=== PATIENT | female | born 1950 | race Caucasian/White ===

== ENCOUNTER 2017-01-19 10:30 | Outpatient (RCR) | payer OTHER, SELFPAY ==
--- NOTE | 2017-01-19 16:03 | HP.PTEVAL_ITS ---
Patient's Visit Information JIE FINNEGAN is a 66 year old F referred to Physical Therapy by Horacio Chand with a diagnosis of OA. Date of Evaluation: 01/19/17 Physical Therapist: Saul Black, PT, - Visit Plan Frequency: 2-3x /Week Duration: 3 Weeks Plan: R hip stretching and strengthening, DTR, foam roller, US, and HEP - Subjective Subjective: Pt reports she injured her R hip while working out here six weeks ago. Pt reports she was performing seated hip abd when she noticed the pain. Pt reports she has withheld performing that exercise for several weeks, but the pain has not decreased. Pt notes she did have Xrays taken of her R hip which revealed that OA is not the source of her pain. No T or N in R LE. Pt notes she has sleep diff secondary to pain, krystal if she sleeps on that side. Pt reports her pain is worse directly over the greater trochanter of the R hip. Walking and sleeping increase pt's pain the worst. Rest tends to ease her pain. - Pain R hip Pain Intensity (Out of 10): 5 Pain Intensity Range: 7 - Objective Neuro: B LE sensation is WNL to light touch. B pat tendon reflex= 2/3. ROM: B hips are grossly WNL. MMT: R hip flexion and knee flexion= 4/5. All other B LE 5/5 throughout. Palpation: Pt is very tender along the greater trochanteric bursa and TFL/IT band regions. Flexibility: Pt has a positive opers sign - Goals Goal 1:: Decrease R hip pain x 50% to aid with sleep Goal Time Frame: 4-6 Weeks Goal 2:: Increase R hip strength x 1 grade to aid with IADL's Goal Time Frame: 4-6 Weeks Goal 3:: Increase R hip flexibility x 1 grade to aid with decreasing pain Goal Time Frame: 4-6 Weeks Goal 4:: I with HEP Goal Time Frame: 4-6 Weeks - Rehabilitation Potential Physical Therapy Diagnosis: R hip pain, weakness, and limited flexibility at this time ssecondary to R greater trochanteric bursitis Rehabilitation Potential: Good - Anticipated Interventions Patient/Client Instruction: Educate patient on: Condition, Plan of Care For the Purpose of:: To improve self management Therapeutic Exercise to Include: Strength training, Endurance training, Body mechanics, Flexibilty training, Passive ROM, Active ROM, Dynamic Lumbar Stabilization For the Purpose of:: To decrease pain, To increase ROM, To improve muscle performance and motor function Ultrasound (thermal/non thermal): Yes For the Purpose of:: To decrease pain Thank you for the opportunity to evaluate your patient. For Medicare and Medicare HMO plans, please review the plan of care and approve it. It will need to be FAXED BACK to us at [phone] for Medicare purposes. Please let me know if there are questions or concerns regarding this plan of care. Physician Signature: Date:
--- NOTE | 2017-04-22 17:18 | HP.PT.NRP ---
HP - Discharge Summary (1) - Patient Information JIE FINNEGAN was seen in my office for initial evaluation on 01/19/17. The following Plan of Care was established for this patient: Initial Frequency: 2-3x /Week Initial Duration: 3 Weeks - Anticipated Interventions Patient/Client Instruction: Educate patient on: Condition, Plan of Care For the Purpose of:: To improve self management Therapeutic Exercise to Include: Strength training, Endurance training, Body mechanics, Flexibilty training, Passive ROM, Active ROM, Dynamic Lumbar Stabilization For the Purpose of:: To decrease pain, To increase ROM, To improve muscle performance and motor function Ultrasound (thermal/non thermal): Yes For the Purpose of:: To decrease pain This patient was last seen in our office . Pertinent comments regarding their Physical therapy will appear below: Pt was treated for R hip pain for 11 PT visits through the date of 02/12/17. Pt has not returned through todays date, and is therefore discontinued at this time. At this point I will be discontinuing this patient from physical therapy. I would be happy to see this patient again in the future if found appropriate by the physician. Thank you! Saul Black, PT,
== END 2017-02-12 19:00 | disposition home or self-care (01) ==
LOC: PT 13:22
PROVIDERS: Family Provider Family Medicine; PCP Family Medicine; Visit Provider Family Medicine
DX: M19.90 Unspecified osteoarthritis, unspecified site (principal)
CPT/HCPCS: 97110; 97161

== ENCOUNTER 2017-04-16 11:00 | Outpatient (RCR) | payer OTHER, SELFPAY ==
--- NOTE | 2017-04-05 14:16 | HP.PTEVAL_ITS ---
Patient's Visit Information JIE FINNEGAN is a 66 year old F referred to Physical Therapy by DO KARINA Noe with a diagnosis of Right Glut Tendonitis. Date of Evaluation: 04/05/17 Physical Therapist: Angie Mendenhall - Visit Plan Frequency: 2x /Week Duration: 3 Weeks Plan: Focus on glut strength - Subjective Subjective: Patient reports that she has had hip pain since November- she was performing the hip abduction machine and felt a pop in her hip and has had pain since. She has seen her PCP as well as ortho. She had PT prior for her back and hamstring which is better but the hip pain has not changed. Pain is located on the lateral aspect of the hip and radiates to the SI joint. Agg: walking, standing and laying on it Worst: 6/10 Best: 0/10 Eases: sitting. Describes pain as dull and achy. No N/T in toes or LE. No change or loss of dorian/bladder. Did have injection which helped for about 1 week but then it went back to being the same. MD wants her to do specific glut therapy for HEP and then possible MRI. Was very active but is now less secondary to pain. Has had x-rays which showed mild OA. PMHx: underactive thyroid, migraines Meds: see list - Objective Posture: FH, RS. Gait: no deviation noted. HR/TR: able. SLS: increased pelvic translation to the right when standing on right- increased pain. Stair: asc/desc 8 recip with 1 HR and poor control. ROM: WFL pain with ER of the hip. Strength:Ankle: 5/5, Knee: 5/5, Hip: 4/5 throughout pain with IR/ER. FABBER: positive, FADDIR: positive, Clams: increased pain. Palpation: tender from greater troch to the SI joint via gluts - Goals Goal 1:: Patient will be I with HEP and progression Goal Time Frame: 4-6 Weeks Goal 2:: Patient will report 0/10 pain for 1 week Goal Time Frame: 4-6 Weeks Goal 3:: Patient will demo 5/5 strength in LE Goal Time Frame: 4-6 Weeks Goal 4:: Patient will maintain proper posture t/o tx session to demo increased core s/s Goal Time Frame: 4-6 Weeks - Rehabilitation Potential Physical Therapy Diagnosis: Patient presents with hypmobility- she has decreased strength and muscular endurance leading to poor posture and increased pain Rehabilitation Potential: Fair - Anticipated Interventions Patient/Client Instruction: Educate patient on: Benefits of Fitness Program For the Purpose of:: To increase tolerance to activity/condition/position Therapeutic Exercise to Include: Strength training, Endurance training, Agility training, Body mechanics, Postural training, Flexibilty training, Gait and locomotor training, Passive ROM, Active ROM, Dynamic Lumbar Stabilization For the Purpose of:: To improve muscle performance and motor function TENS: Yes Cryotherapy (ice pack, ice massage): Yes Thermo therapy (hot pack): Yes Ultrasound (thermal/non thermal): Yes Thank you for the opportunity to evaluate your patient. For Medicare and Medicare HMO plans, please review the plan of care and approve it. It will need to be FAXED BACK to us at [phone] for Medicare purposes. Please let me know if there are questions or concerns regarding this plan of care. Physician Signature: Date:
--- NOTE | 2017-06-16 15:52 | HP.PTDCSUM ---
HP - PT D/C Summary It has been my pleasure to treat JIE FINNEGAN under orders from Robert Zuñiga DO, DR.MTODD for the diagnosis of Right Glut Tendonitis for a total of 6 visit(s). Discharge Date: Please see the following information for a summary of their discharge status. - Subjective Subjective: Patient reports its not as bad today- 2-3/10. Sometimes she feels its better but sometimes its not as good. But overall better. - Objective Objective/Function: Posture: improving. Gait: no deviation. ROM: WFL. Strength: Ankle: 5/5, Knee: 5/5, Hip: 4+/5 Core: fair - Goals Goal 1:: Patient will be I with HEP and progression Goal Progress: Progressing Goal 2:: Patient will report 0/10 pain for 1 week Goal Progress: Progressing Goal 3:: Patient will demo 5/5 strength in LE Goal Progress: Progressing Goal 4:: Patient will maintain proper posture t/o tx session to demo increased core s/s Goal Progress: Progressing - Plan Plan: Cont with Poc - D/C Information If there are questions or concerns regarding this patient's physical therapy, please feel free to call me at [phone]. Thank you for the referral of this patient. Sincerely, Angie Mendenhall
== END 2017-04-16 19:00 | disposition home or self-care (01) ==
LOC: PT 11:00
PROVIDERS: Family Provider Family Medicine; PCP Family Medicine; Visit Provider Orthopaedic Surgery
DX: M76.01 Gluteal tendinitis, right hip (principal)
CPT/HCPCS: 97110; 97161; 97530

== ENCOUNTER → 2017-05-12 07:15 | Outpatient (CLI) | payer OTHER, SELFPAY ==
--- NOTE | 2017-05-12 07:16 | MRI_ITS ---
STUDY: MRI RIGHT HIP REASON FOR EXAM: Right hip pain since November. TECHNIQUE: Standardized fat and water weighted pulse sequences were obtained in all 3 orthogonal planes. COMPARISON: Radiographs 12/24/2016. FINDINGS: Normal hip joint without articular joint space narrowing. Normal acetabulum. There is a suspected small tear of the anterior aspect of the right superior labrum (inversion recovery coronal image 18). Normal femoral head. Normal femoral neck and intratrochanteric region. There is mild peritendinitis of the right gluteus minimus tendon (inversion recovery coronal image 15) without discrete tendon tear. Normal gluteus medius and iliopsoas tendons and distal insertions. There is no trochanteric, iliopsoas or iliopectineal bursitis. Normal superior and inferior pubic rami. Normal pubic symphysis. Normal ischial tuberosity. Normal origin of the hamstring tendons. Normal visualized iliac wing, sacroiliac joint, and sacral ala. Normal visualized soft tissue structures of the pelvis. MRI/Lower Ext Joint Only (Routine) IMPRESSION: Mild peritendinitis of the right gluteus minimus tendon without demonstrated gluteal tendon tear. Suspected small tear of the anterior aspect of the right superior labrum. Electronically Signed: Earnest Muñoz MD at 8:55 EST Tel , Service support ,
== END ==
PROVIDERS: Family Provider Family Medicine; PCP Family Medicine; Visit Provider Orthopaedic Surgery
DX: M76.01 Gluteal tendinitis, right hip (principal)
CPT/HCPCS: 73721

== ENCOUNTER → 2017-05-26 14:03 | Outpatient (CLI) | payer OTHER, SELFPAY ==
[2017-05-26 15:53] LABS: Absolute Lymphocyte Count 1.58 X10^3/ul (0.83-4.51); Absolute Neutrophil Count 3.2 X10^3/uL (2.0-7.7); Basophil# 0.02 X10^3/uL; Basophil% 0.4 % (0-1); Eosinophil# 0.09 X10^3/uL; Eosinophils% 1.7 % (0-5); Hematocrit 42.4 % (37-47); Hemoglobin 13.9 g/dl (12.0-15.0); Lymphocyte # 1.58 X10^3/ul (4.0); Lymphocyte % 29.9 % (19-41); Mean Corp Hgb Conc 32.8 g/gl (32-36); Mean Corpuscular Hgb 30.1 pg (27.0-32.0); Mean Corpuscular Volume 91.8 fL (81-99); Mean Platelet Vol. 10.8 fl (6.2-12.0); Monocyte# 0.39 X10^3/uL; Monocyte% 7.4 % (0-10); Neutrophil % 60.4 % (47-70); Platelet Count 275 K/mm3 (150-450); RBC Distribution Width SD 43.4 fl (35.1-43.9); Red Blood Count 4.62 M/mm3 (4.2-5.4); White Blood Count 5.3 K/mm3 (4.4-11.0)
[2017-05-26 15:57] LABS: POSITIVE COUNT NO; POSITIVE DIFFERENTIAL NO; POSITIVE MORPHOLOGY NO
[2017-05-26 16:23] LABS: Anion Gap 8 (5-15); BUN 19 mg/dL (7-18); Calcium,Total 8.8 mg/dL (8.5-10.1); Chloride 104 mmol/L (98-107); EST Glomerular Filtration Rate 67 mL/min (>60); Est Glom Filt Rate - Afr Amer 81 mL/min (>60); Free T3 2.3 pg/mL (2.18-3.98); Glucose 90 mg/dL (74-106); Sodium Level 141 mmol/L (136-145); T4 Total, Thyroxin 10.6 ug/dL (4.8-13.9)
== END ==
PROVIDERS: Family Provider Family Medicine; PCP Family Medicine; Visit Provider Family Medicine
DX: Z00.00 Encounter for general adult medical examination without abnormal findings (principal); E03.9 Hypothyroidism, unspecified
CPT/HCPCS: 36415; 80048; 84436; 84443; 84481; 85025

== ENCOUNTER 2017-06-03 09:18 | Day surgery (SDC) | payer OTHER, SELFPAY ==
[2017-06-03 09:36] VITALS: BP 124/84; PULSE 88; RESP 16; TEMP 36.7; O2SAT 97; BMI 25.4
--- NOTE | 2017-06-03 10:39 | PCM.DC.ORTHO ---
Discharge Activity: Return to Normal Activity, May not drive while taking narcotic pain medications., May Shower, Use Crutches, - - Crutches as needed. May shower in (days): 2 May resume sexual activity in: 6 weeks Ice area for (Minutes): 20 Weight Bearing Status: Weight bearing as tolerated Call your doctor if your incision/area has: Continuous Slow Oozing, Sudden Increased Bleeding, Increased Pain/ Swelling, Increased Redness, Foul Smelling Discharge, Swelling at the incision site Call your doctor if you observe: Fever of 101 or Higher, Coldness, Increased Pain, Numbness or Tingling, Change in Color, Inability to urinate, Inability to have a bowel movement, Using more than one pad per hour, Shortness of breath, Dizziness, Fainting spells, Swelling in the ankles, Chest pain, Prolonged hiccoughing, Increased palpitations (irregular heartbeat), Calf discomfort, Uncontrolled pain Suture Line Care: Avoid Pulling/Pushing, Avoid Pinching/Bending Change Dressing in (Days):: 2 Remove Dressing in (days):: 2 Cleanse incision/area with: Soap & Water Additional Dressing/Incision Instructions:: Replace dressing as needed. May use simple Band-Aids as long as there is no drainage. May shower in 2 days but do not submerge wound. Allergies/Adverse Reactions: Allergies No Known Allergies Allergy (Verified 05/31/17 09:16) Medications to take at Discharge cholecalciferol (vitamin D3) 2,000 unit capsule 2,000 unit PO ONCE 03/10/17 gjeewla-becgquowrj-YRR-caffeine 30 mg-50 mg-325 mg-40 mg capsule 1 cap PO Q6H PRN 03/10/17 fexofenadine 180 mg tablet 180 mg PO Q24H PRN 03/10/17 hydroxychloroquine 200 mg tablet 200 mg PO QDAY 03/10/17 levothyroxine 125 mcg tablet 125 mcg PO DAILY 03/10/17 naproxen 500 mg tablet 500 mg PO Q12H 03/10/17 onabotulinumtoxinA 100 unit solution for injection 200 unit INTRAV X1 03/10/17 rizatriptan 10 mg tablet 10 mg PO ONCE PRN 03/10/17 Aspirin/Caffeine [Anacin 400-32 mg Tablet] 1 each PO PRN PRN 05/31/17 Docusate Sodium [Colace] 100 mg PO BID PRN PRN #10 cap 06/03/17 Hydrocodone Bitart/Apap 5-325 [[place] 5/325] 1 - 2 tablet PO Q6H PRN PRN #60 tablet 06/03/17 ProMETHAzine [Phenergan] 25 mg PO Q4H PRN PRN #10 tab 06/03/17 The following prescriptions were given: ProMETHAzine [Phenergan] 25 mg PO Q4H PRN PRN #10 tab PRN Reason: Nausea Hydrocodone Bitart/Apap 5-325 [[place] 5/325] 1 - 2 tablet PO Q6H PRN PRN #60 tablet PRN Reason: Pain Docusate Sodium [Colace] 100 mg PO BID PRN PRN #10 cap PRN Reason: Constipation Primary Care Physician: Horacio Chand MD [Primary Care Provider] - Please Follow Up With: Robert Zuñiga DO When: call [facility] for appt for 2 weeks Proposed Discharge Date: 06/03/17
[2017-06-03] MEDS: Cefazolin 2 GM in 0.9% Normal Saline 100 ML IV (10:46)
[2017-06-03] MEDS: Bupivacaine Mpf 0.5% 30 ML VIAL (11:30)
--- NOTE | 2017-06-03 11:43 | OP.PN_ITS ---
Immediate Post-Op Note Date of Procedure: 06/03/17 Primary Surgeon/Physician: Robert Zuñiga DO cognos administrator: None Pre-Operative Diagnosis: Hip gluteal tendinopathy and trochanteric bursitis. Post-Operative Diagnosis: Same as above Surgery/Procedure Performed:: Right hip endoscopic trochanteric bursectomy IT band lengthening and gluteal debridement. Description of Surgical Findings:: See dictation Estimated Blood Loss: 10 Specimen's removed: None Type of Anesthesia:: General ASA Class: ASA1 Normal Healthy Patient - Admit VTE Documentation VTE Present on Admission: No VTE Mechan Device Prophylaxis: SCD's, Knee High BOLIVAR Hose VTE Pharm Prophylaxis ordered?: No Reason prophylaxis not ordered:: Treatment Not Indicated
--- NOTE | 2017-06-03 11:48 | OP.PCM_ITS ---
Report of Operation Date of Procedure: 06/03/17 Pre-Operative Diagnosis: Hip gluteal tendinopathy and trochanteric bursitis. Post-Operative Diagnosis: Same as above Surgery/Procedure Performed:: Right hip endoscopic trochanteric bursectomy IT band lengthening and gluteal debridement. Description of Surgical Findings:: 66-year-old female with recalcitrant right hip pain that failed nonoperative management to include NSAIDs activity modifications physical therapy and injections. Patient had an MRI of the hip that did not show any obvious gluteal tears but just peritrochanteric tendinitis and gluteal tendinopathy. Having failed conservative measures patient elected for operative procedure. She was met in the holding area where the right lower extremity was marked and identified by the with surgeon. She was taken to the operating room in satisfactory condition with somewhat to place to identify patient operative procedure and limb. Patient received 2 g Ancef. She underwent a successful intubation. She was then placed into the left lateral decubitus position using beanbag for stability. She had a well-padded down leg pad. We also placed an appropriate placed axillary roll. She was then prepped and draped in usual fashion. Initially an 18-gauge spinal needle was introduced to center cells over top of the trochanter. We then insufflated underneath the IT band with approximately 6 cc of normal saline solution. I subsequently made 2 1 cm incisions about 3 fingerbreadths above the trochanter and 3 finger breaths below the trochanter in line with my needle localization. At that point time the soft tissues above the IT band were identified using the scope and gentle debridement with a shaver. We also were able to identify the needle at that time. We subsequently made a longitudinal incision moving both proximally and distally across the IT band using standard technique until the vastus lateralis fascia was identified and also the gluteal fascia. At that point time a standard debridement of any trochanteric bursitis was undertaken gently internally and externally rotating the hip to allow for good expression of the gluteal muscles. There was no obvious tear patterns to the gluteal insertions. Just some mild fraying on the bursal side. I elected to just gently debrided again using mechanical shaver and vapor cautery. I subsequently placed a small crucifix incision into the IT band over the trochanter both proximally or superiorly and inferiorly. At that point time a repeat evaluation of the gluteal muscles was evaluated again through internal and external rotation of the hip distally. No further injury pattern was identified. At that point time the scope was retracted and excess fluid was removed. She was then injected with 50 cc 0.25% Marcaine around the portal sites and across the IT band. We then closed using simple suture technique with 3-0 nylon. She was dressed in the usual fashion with Xeroform 4 x 4's ABDs and Medipore tape. I was scrubbed and available time during our procedure. If you require any further formation please do not hesitate to contact me. No drains or complications no implants healthcare interpreter: None Type of Anesthesia:: General Specimen's removed: None Estimated Blood Loss (mL): 10 Grafts/Implants Used: None - Complications None - Admit VTE Documentation VTE Present on Admission: No VTE Mechan Device Prophylaxis: SCD's, Knee High BOLIVAR Hose VTE Pharm Prophylaxis ordered?: No Reason prophylaxis not ordered:: Treatment Not Indicated
[2017-06-03 11:52] VITALS: BP 124/84; BP 127/72; PULSE 91; RESP 16; TEMP 36.1; O2SAT 96
[2017-06-03 12:00] VITALS: BP 117/87; BP 124/84; PULSE 77; RESP 16; O2SAT 100
[2017-06-03 12:15] VITALS: BP 124/84; BP 126/81; PULSE 75; RESP 16; O2SAT 98
[2017-06-03] MEDS: Ketorolac 15 MG/ML Vial IV (12:22)
[2017-06-03 12:27] VITALS: BP 124/84; BP 129/73; PULSE 68; RESP 16; TEMP 36.3; O2SAT 100
[2017-06-03 12:51] VITALS: BP 124/84
== END 2017-06-03 13:11 | disposition home or self-care (01) ==
LOC: SDC 09:19 → AC 09:20
PROVIDERS: Family Provider Family Medicine; PCP Family Medicine; Visit Provider Orthopaedic Surgery
PROC: (CPT 29999; principal; 2017-06-03 10:35)
DX: M70.61 Trochanteric bursitis, right hip (principal); M76.01 Gluteal tendinitis, right hip; E78.00 Pure hypercholesterolemia, unspecified; Z79.899 Other long term (current) drug therapy; G47.30 Sleep apnea, unspecified; G43.909 Migraine, unspecified, not intractable, without status migrainosus; G25.81 Restless legs syndrome; E03.9 Hypothyroidism, unspecified; M06.9 Rheumatoid arthritis, unspecified
CPT/HCPCS: 27062; 27299; J3010; J7120; J2405

== ENCOUNTER 2017-08-04 11:00 | Outpatient (RCR) | payer OTHER, SELFPAY ==
--- NOTE | 2017-06-21 08:52 | HP.PTEVAL_ITS ---
Patient's Visit Information JIE FINNEGAN is a 66 year old F referred to Physical Therapy by DO KARINA Noe with a diagnosis of R trochanteric bursectomy and IT band recection. Date of Evaluation: 06/16/17 Physical Therapist: Kirill Eagle - Visit Plan Frequency: 2-3x /Week Duration: 4-6 Weeks Plan: Start with ROM activities, HS stretching, hip flexor stretching. Bike, core strengthening, Progress to hip strengthening 4 weeks DOS as tolerated. May use modalities to reduce symptoms. - Subjective Subjective: Pt. is here today for her initial evaluation with diagnosis of R trochanteric bursectomy and IT band recection. DOS: 06/03/17. Pt. arrives today without crutches with 4/10 pain with walking. Pt. had previously trialed conservative care without postive outcome, resulting in need for surgical intervention. Pt. reports weaning from crutches today. Pt. has been icing frequently with postive results. Pt. reports having increased pain with walkking , stairs, lifting her leg and sleeping on her R side. Decreased pain: ice and OTC pain meds. Pt. denies N/T in either LE. Pt. is pleased with current progress. Pt. has been sleeping okay, as long as I don't roll on my right side. Pt. has not been completing any exercises since surgery. Pt. is getting around her house without limitations. Pt. is hopful to increase strength, decrease pain and get back to all recreational activities without limitations. - Pain R lateral hip Pain Intensity (Out of 10): 3 Pain Intensity Range: 1, 6 - Objective POSTURE: Pt. has normal DIANE in stance, equal iliac crest heights, with equal wt. shifting between bilateral LEs. PALPATION: Pt. has tenderness at lateral hip, no pain at gluteal region or anterior hip. NEUROLOGICAL: Pt. has normal sensation to light and sharp touch of bilateral LEs. Pt. has 2+ achilles and patellar DTR bilaterally. Pt. is able to rise on heels and toes without increase in symptoms or LOB. ROM: R hip- flexion 88deg, abd 40deg, ext 8deg, IR /ER not test. L hip- flexion 120deg, abd 50deg, ext 12deg, ER 68deg, IR 32deg. MMT: RLE- ankle 5/5 throughout; knee- ext 4/5 increase NW, flexion 4+/5; hip- flexion 4/5, ext 4/5. LLE- ankle- 5/5 throughout; knee 5/5 throughout; hip- flexion 4+/5, abd 4/5, ext 4+/5. GAIT: Pt. has decreased step length with LLE. Pt. has increased R lateral lean during R stance phase. STAIRS: Pt. completes with step to pattern with LLE loading throughout with use of BHR. - Goals Goal 1:: Pt. to be I with HEP. Goal Time Frame: 4-6 Weeks Goal 2:: Pt. to have increased R hip ROM to full without increase in symptoms Goal Time Frame: 4-6 Weeks Goal 3:: Pt. to have increased R hip strength increased by 1/2 grade in all directions without increase in symptoms. Goal Time Frame: 4-6 Weeks Goal 4:: Pt. to have 0/10 pain with ambulation for unlimited distances. Goal Time Frame: 4-6 Weeks Goal 5:: Pt. to negotiate steps with 1 HR with reciprocal pattern without increase in symptoms. Goal Time Frame: 4-6 Weeks Goal 6:: Pt. to sleep throughout the night with 0/10 pain in R hip allowing for increased quality of life. Goal Time Frame: 4-6 Weeks - Rehabilitation Potential Physical Therapy Diagnosis: Pt. has signs and symptoms consistent wtih R trochanteric bursectomy and IT band recection. Pt. has subsequent hypomobility of her R hip, RLE/core weakness, increased pain and difficulty with gait. Pt. would benefit from Pt to increase hip ROM, strength, decfrease pain and increase functional mobility. Rehabilitation Potential: Excellent - Anticipated Interventions Patient/Client Instruction: Educate patient on: Condition, Plan of Care, Risk Factors, Benefits of Fitness Program For the Purpose of:: To improve safety, To improve health and function, To foster healthy habits, To improve decision making, To facilitate caregiver knowledge, To improve self management, To prevent re-injury, To improve ability to perform tasks related to life management, To improve tolerance to ADL's Therapeutic Exercise to Include: Strength training, Power training, Endurance training, Balance training, Body mechanics, Postural training, Flexibilty training, Gait and locomotor training, Passive ROM, Active ROM, Dynamic Lumbar Stabilization For the Purpose of:: To decrease pain, To increase ROM, To improve nutrient delivery to tissue, To increase oxygenation perfusion, To improve muscle performance and motor function, To improve ability to perform ADL's, To increase tolerance to activity/condition/position, To improve gait and locomotor functions, To improve health of tissue, To decrease soft tissue restriction, To increase flexibility/ROM, To improve endurance, To improve balance Manual Therapy Techniques to Include: Petrissage, Massage, Scar massage, Soft tissue mobilization For the Purpose of:: To decrease pain, To increase ROM, To improve nutrient delivery to tissue, To increase oxygenation perfusion, To improve muscle performance and motor function IF ES: Yes Cryotherapy (ice pack, ice massage): Yes For the Purpose of:: To decrease pain, To decrease swelling/inflammation, To increase ROM Thank you for the opportunity to evaluate your patient. For Medicare and Medicare HMO plans, please review the plan of care and approve it. It will need to be FAXED BACK to us at [phone] for Medicare purposes. Please let me know if there are questions or concerns regarding this plan of care. Physician Signature: Date:
--- NOTE | 2017-12-09 11:31 | HP.PT.NRP ---
HP - Discharge Summary (1) - Patient Information JIE FINNEGAN was seen in my office for initial evaluation on 06/16/17. The following Plan of Care was established for this patient: Initial Frequency: 2-3x /Week Initial Duration: 4-6 Weeks - Anticipated Interventions Patient/Client Instruction: Educate patient on: Condition, Plan of Care, Risk Factors, Benefits of Fitness Program For the Purpose of:: To improve safety, To improve health and function, To foster healthy habits, To improve decision making, To facilitate caregiver knowledge, To improve self management, To prevent re-injury, To improve ability to perform tasks related to life management, To improve tolerance to ADL's Therapeutic Exercise to Include: Strength training, Power training, Endurance training, Balance training, Body mechanics, Postural training, Flexibilty training, Gait and locomotor training, Passive ROM, Active ROM, Dynamic Lumbar Stabilization For the Purpose of:: To decrease pain, To increase ROM, To improve nutrient delivery to tissue, To increase oxygenation perfusion, To improve muscle performance and motor function, To improve ability to perform ADL's, To increase tolerance to activity/condition/position, To improve gait and locomotor functions, To improve health of tissue, To decrease soft tissue restriction, To increase flexibility/ROM, To improve endurance, To improve balance Manual Therapy Techniques to Include: Petrissage, Massage, Scar massage, Soft tissue mobilization For the Purpose of:: To decrease pain, To increase ROM, To improve nutrient delivery to tissue, To increase oxygenation perfusion, To improve muscle performance and motor function IF ES: Yes Cryotherapy (ice pack, ice massage): Yes For the Purpose of:: To decrease pain, To decrease swelling/inflammation, To increase ROM This patient was last seen in our office 08/04/17. Pertinent comments regarding their Physical therapy will appear below: Pt. was seen after her IT band rececction. Pt. progress as expected. At our last visit pt. was independent with her HEP and was to continue on own. Pt. was to follow up with PT if needed. Pt. has not been see in ~4 months and will be from PT at this point in time. At this point I will be discontinuing this patient from physical therapy. I would be happy to see this patient again in the future if found appropriate by the physician. Thank you! Kirill Eagle
== END 2017-08-04 19:00 | disposition home or self-care (01) ==
LOC: PT 11:00
PROVIDERS: Family Provider Family Medicine; PCP Family Medicine; Visit Provider Orthopaedic Surgery
DX: Z98.890 Other specified postprocedural states (principal)
CPT/HCPCS: 97014; 97110; 97161; 97530; G0283

== ENCOUNTER → 2017-08-25 11:14 | Outpatient (CLI) | payer OTHER, SELFPAY ==
[2017-08-25 13:26] LABS: Free T3 2.2 pg/mL (2.18-3.98); Thyroid Stim Hormone (TSH) 0.67 uIU/mL (0.358-3.74)
== END ==
PROVIDERS: Family Provider Family Medicine; PCP Family Medicine; Visit Provider Family Medicine
DX: E03.9 Hypothyroidism, unspecified (principal)
CPT/HCPCS: 36415; 84436; 84443; 84481

== ENCOUNTER → 2017-12-31 16:52 | Outpatient (CLI) | payer MEDICARE, SELFPAY ==
--- NOTE | 2017-12-31 17:30 | MRI_ITS ---
STUDY: MRI RIGHT HIP REASON FOR EXAM: Female, 67 years old. History of right mastectomy in May 2017. Bilateral hip pain. TECHNIQUE: Standardized fat and water weighted pulse sequences were obtained in all 3 orthogonal planes. COMPARISON: None. FINDINGS: Normal hip joint without articular joint space narrowing. Normal acetabulum. Normal labrum. Normal femoral head. Normal femoral neck and intratrochanteric region. Normal gluteus minimus, medius and iliopsoas tendons and distal insertions. There is bilateral greater trochanteric bursitis (coronal series 4 images 11-18). There are postsurgical changes in the region of the right greater trochanteric region with focal low signal intensity which may represent fibrosis (axial series 6 images 13-20). Normal superior and inferior pubic rami. Normal pubic symphysis. Normal ischial tuberosity. Normal origin of the hamstring tendons. Normal visualized iliac wing, sacroiliac joint, and sacral ala. Normal visualized soft tissue structures of the pelvis. MRI/Lower Ext Joint Only (Routine) IMPRESSION: Bilateral greater trochanteric bursitis. Postsurgical changes in the region of the right greater trochanter. No other significant abnormality is present. Electronically Signed: Abhishke Nolan MD at 18:24 EDT , Service support ,
== END ==
PROVIDERS: Family Provider Family Medicine; PCP Family Medicine; Referring Provider Orthopaedic Surgery; Visit Provider Orthopaedic Surgery
DX: G89.18 Other acute postprocedural pain (principal); M76.30 Iliotibial band syndrome, unspecified leg
CPT/HCPCS: 73721

== ENCOUNTER → 2018-02-23 14:02 | Outpatient (CLI) | payer MEDICARE, SELFPAY ==
[2018-02-23 16:28] LABS: Free T3 2.2 pg/mL (2.18-3.98); T4 Total, Thyroxin 11.4 ug/dL (4.8-13.9); Thyroid Stim Hormone (TSH) 0.58 uIU/mL (0.358-3.74)
--- OUTSIDE RECORDS SUMMARY | 2018-04-20 23:46 | XMS RPT_ITS ---
:1950 Author Organization OHIP Support Name Relationship Address Phone R Unavailable Unavailable Unavailable WOLOSCHYN, ALEXIS Unavailable [address] + [place] [address] R Unavailable Unavailable Unavailable WOLOSCHYN, ALEXIS Unavailable [address] + [place] [address] R Unavailable Unavailable Unavailable WOLOSCHYN, ALEXIS Unavailable [address] + [place] [address] R Unavailable Unavailable Unavailable WOLOSCHYN, ALEXIS Unavailable [address] + [place] [address] R Unavailable Unavailable Unavailable WOLOSCHYN, ALEXIS Unavailable [address] + [place] [address] R Unavailable Unavailable Unavailable WOLOSCHYN, ALEXIS Unavailable [address] + [place] [address] R Unavailable Unavailable Unavailable WOLOSCHYN, ALEXIS Unavailable [address] + [place] [address] R Unavailable Unavailable Unavailable WOLOSCHYN, ALEXIS Unavailable [address] + [place] [address] R Unavailable Unavailable Unavailable WOLOSCHYN, ALEXIS Unavailable [address] + [place] [address] R Unavailable Unavailable Unavailable WOLOSCHYN, ALEXIS Unavailable [address] + [place] [address] R Unavailable Unavailable Unavailable WOLOSCHYN, ALEXIS Unavailable [address] + [place] [address] R Unavailable Unavailable Unavailable WOLOSCHYN, ALEXIS Unavailable [address] + [place] [address] R Unavailable Unavailable Unavailable WOLOSCHYN, ALEXIS Unavailable [address] + [place] [address] R Unavailable Unavailable Unavailable WOLOSCHYN, ALEXIS Unavailable [address] + [place] [address] R Unavailable Unavailable Unavailable WOLOSCHYN, ALEXIS Unavailable [address] + [place] [address] R Unavailable Unavailable Unavailable WOLOSCHYN, ALEXIS Unavailable [address] + [place] [address] R Unavailable Unavailable Unavailable WOLOSCHYN, ALEXIS Unavailable [address] + [place] [address] R Unavailable Unavailable Unavailable WOLOSCHYN, ALEXIS Unavailable [address] + [place] [address] R Unavailable Unavailable Unavailable WOLOSCHYN, ALEXIS Unavailable [address] + [place] [address] R Unavailable Unavailable Unavailable WOLOSCHYN, ALEXIS Unavailable [address] + [place] [address] Care Team Providers Name Role Phone Cecil Yu Attending Unavailable Jagruti, Horacio Primary Care Unavailable Robert Zuñiga Attending Unavailable Jagruti, Horacio Primary Care Unavailable Robert Zuñiga Referring Unavailable Robert Zuñiga Attending Unavailable Chand, Horacio Referring Unavailable Chand, Horacio Primary Care Unavailable Robert Zuñiga Attending Unavailable Yogesh, Robert Referring Unavailable Chand, Horacio Primary Care Unavailable Robert Zuñiga Attending Unavailable Jagruti, Horacio Referring Unavailable Chand, Horacio Primary Care Unavailable Robert Zuñiga Attending Unavailable Robert Zuñiga Referring Unavailable Chand, Horacio Primary Care Unavailable Chand, Horacio Attending Unavailable Jagruti, Horacio Primary Care Unavailable Robert Zuñiga Attending Unavailable Yogesh, Robert Referring Unavailable Chand, Horacio Primary Care Unavailable Robert Zuñiga Consulting Unavailable Robert Zuñiga Attending Unavailable Jagruti, Horacio Referring Unavailable Chand, Horacio Primary Care Unavailable Yogesh, Robert Attending Unavailable Yogesh, Robert Referring Unavailable Chand, Horacio Primary Care Unavailable Yogesh, Robert Attending Unavailable Jagruti, Hoarcio Referring Unavailable Chand, Horacio Primary Care Unavailable Chand, Horacio Attending Unavailable Chand, Horacio Primary Care Unavailable Yogesh, Robert Attending Unavailable Chand, Horacio Referring Unavailable Chand, Horacio Primary Care Unavailable Kathy Ny Attending Unavailable Chand, Horacio Referring Unavailable Chand, Horacio Primary Care Unavailable Chicorelli, Kathy Attending Unavailable Chand, Horacio Referring Unavailable Chicorelli, Kathy Attending Unavailable Chand, Horacio Referring Unavailable Chand, Horacio Primary Care Unavailable Chicorelli, Kathy Attending Unavailable Chicorelli, Kathy Referring Unavailable Chand, Horacio Primary Care Unavailable Chicorelli, Kathy Attending Unavailable Chand, Horacio Referring Unavailable Chicorelli, Kathy Attending Unavailable Chicorelli, Kathy Referring Unavailable Chand, Horacio Primary Care Unavailable Chand, Horcaio Attending Unavailable Chand, Horacio Primary Care Unavailable PROBLEMS PROBLEMS DATE TYPE CONDITION / CODE ATTENDING STATUS SOURCE 02/23/2018 Unknown E03.9 - Horacio Chand Active [place] Hypothyroidism, Community unspecified / Hospital E03.9(ICD-10) Repository 12/31/2017 Unknown G89.18 - Other acute Chicorelli, Active [place] postprocedural pain [facility] / G89.18(ICD-10) Hospital Repository 12/31/2017 Unknown M76.30 - Iliotibial Chicorelli, Active [place] band syndrome, [facility] unspecified leg / Hospital M76.30(ICD-10) Repository 10/26/2017 Unknown M70.61 - Chicorelli, Active [place] Trochanteric [facility] bursitis, right hip Hospital / M70.61(ICD-10) Repository 12/09/2017 Unknown Z98.890 - Other Robert Zuñiga Active [place] specified Community postprocedural Hospital states / Repository Z98.890(ICD-10) 05/26/2017 Unknown Z00.00 - Encounter Horacio Chand for general adult [facility] medical examination Hospital without abnormal Repository findings / Z00.00(ICD-10) 06/16/2017 Unknown M76.01 - Gluteal Robert Zuñiga Active [place] tendinitis, right Community hip / M76.01(ICD-10) Hospital Repository 03/16/2017 Unknown Z12.31 - Encounter Cecil Yu for screening [facility] mammogram for [facility] malignant neoplasm Repository of breast / Z12.31(ICD-10) PROCEDURES PROCEDURES No Procedure Records FoundRESULTS RESULTS INITAL EVALUATION (1) Observed: 03/08/2018 Status: F Source: [place] - PT 7:11 AM [facility] REPOSITORY [facility] Physical Therapy [address] [place] [address] Fax REHABILITATION SERVICES INITIAL EVALUATION MR#: [id number] Acct: [id number] Name: JIE FINNEGAN Rep #: [id number] : 1950 67 From: Kirill Eagle DPT Referring Dr.: Kathy Ny DO Status: REG RCR Insurance: [facility] [employer] SELF PAY INSURANCE Patient's Visit Information JIE FINNEGAN is a 67 year old F referred to Physical Therapy by Kathy Ny DO with a diagnosis of R hip bursitis. Date of Evaluation: 02/22/18 Physical Therapist: Kirill Eagle - Visit Plan Frequency: 2x /Week Duration: 4-6 Weeks Plan: Start with IT band stretching, piriformis stretching, glute med/max activationn. US to greater trochanteric bursa and DN to similar region. - Subjective Findings: Pt. is here today with diagnosis of R hip bursitis. Pt. is known to this PT as she was seen after her R bursectomy. Pt. reports never getting fully better after procedure and is now having increased symptoms while walking and with ADLs. Pt. reports pain at R lateral hip, and gluteal region. Pt. denies N/T in either LE. Pt. reports having mild pain at rest, but pain intensifies with walking. Pt. denies LBP and no distal LE weakness. Pt. is able to sleep wihtout issues, unless she rolls onto her side. Pt. reprots being able to complete most activitiaties, but has increased pain with them. Pt. has had injects with some mild relief, but came back with in a few weeks. Pt. did discuss surgery with patient, but opted for PT at this point in time. Pt. hopeful to reduce symptoms in order to get back to all recreational walking without issues. - Pain R lateral hip Pain Intensity (Out of 10): 3 Pain Intensity Range: 1, 6 - Objective POSTURE: Pt. has normal posture instance. Equal iliac crest heights. Pt. has slight flexed posture. PALPATION: Pt. has tenderness at posterior aspect of R greater trochanter, pain at piriformis muscle belly and TFL. NO distal IT band pain. NEURO: all normal, intact. No issues. ROM: LUMBAR SPINE: normal motion no increase in symptoms. R hip: flexion 120deg NE, ext 20deg NE, ER 60deg increase NW, IR 30 deg increase NW, + obers test for pain and tightness. MMT: LLE- 5/5 throughout except, hip- flexion 4+/5, abd 4/5, ext 4+/5. RLE- ankle/knee 5/5 throughout; hip- flexuon 4+/5 abd 4/5 increase NW, ext 4/5 icnrease NW. GAIT: pt. ambulates with slight antalgic pattern on R stance phase, slight contralateral hip drop. Normal step length bilat. STAIRS: Pt. is able to compelte with reciprical pattern, but does have marked R hip weakness with ascending and controlled eccentric lowering. - Special Tests R Hip Scour: Negative R Hip GREG - Intraarticular Pathology: Negative R Hip FADDIR - Labrum: Negative R Hip Wood - IT Band: Positive Comment: Pt. has pain with FADDIR and GREG, but posterior, not in joint. - Goals Goal 1:: Pt. to be I with HEP. Goal Time Frame: 4-6 Weeks Goal 2:: Pt. to have negative wood's test on R side. Goal Time Frame: 4-6 Weeks Goal 3:: Pt. to have increased R hip ROM in all effected ranges by 25% without increase in symptoms. Goal Time Frame: 4-6 Weeks Goal 4:: Pt. have increased R hip and core strength by 1/2 grade of all effected musculature. Goal Time Frame: 4-6 Weeks Goal 5:: Pt. to walk unlimited distances with 0-1/10 pain in R hip. - Rehabilitation Potential Physical Therapy Diagnosis: Pt. has signs and symptoms consistent with R hip bursitis. Pt. has hypomobility throughout hip IR/ER/ADD and weakness of glute med, glute max, hamstring, and hip ER. Pt. would benefit from PT to address above limitations and progress back to recreational walking without issues. Rehabilitation Potential: Good - Anticipated Interventions Patient/Client Instruction: Educate patient on: Condition, Plan of Care, Risk Factors, Benefits of Fitness Program For the Purpose of:: To foster healthy habits, To improve decision making, To facilitate caregiver knowledge, To improve self management, To prevent re-injury, To improve ability to perform tasks related to life management, To improve tolerance to ADL's Therapeutic Exercise to Include: Strength training, Power training, Endurance training, Postural training, Flexibilty training, Passive ROM, Active ROM, Dynamic Lumbar Stabilization For the Purpose of:: To decrease pain, To increase ROM, To improve nutrient delivery to tissue, To increase oxygenation perfusion, To improve muscle performance and motor function, To improve performance and independence with ADL's, To improve gait and locomotor functions, To improve health of tissue, To decrease soft tissue restriction, To increase flexibility/ROM Manual Therapy Techniques to Include: Functional dry needling, Soft tissue mobilization For the Purpose of:: To decrease pain, To increase ROM, To improve nutrient delivery to tissue, To increase oxygenation perfusion IF ES: Yes Cryotherapy (ice pack, ice massage): Yes Thermo therapy (hot pack): Yes Ultrasound (thermal/non thermal): Yes For the Purpose of:: To decrease pain, To increase ROM Thank you for the opportunity to evaluate your patient. For Medicare and Medicare HMO plans, please review the plan of care and approve it. It will need to be FAXED BACK to us at [phone] for Medicare purposes. For Medicare only, by signing this I certify the plan of care. Please let me know if there are questions or concerns regarding this plan of care. Physician Signature: Date: <Electronically signed by Kirill Eagle DPT> 03/08/18 0711 CC: Kathy Ny DO; Horacio Chand MD CLS Signed FREE T3 Collected: 02/23/2018 Status: F Source: [place] 2:03 PM [facility] REPOSITORY TYPE CODE TESTS RESULT OUT OF RANGE REFERENCE UNITS LAB L501.75167 2.18-3.98 pg/mL Normal FREE T3 2.2 Performed By: #### L501.68313, L501.9310, L501.9520 #### [place] [facility] [address] [place], [address] T4 TOTAL, THYROXIN Collected: 02/23/2018 Status: F Source: [place] 2:03 PM [facility] REPOSITORY TYPE CODE TESTS RESULT OUT OF RANGE REFERENCE UNITS LAB L501.9310 4.8-13.9 ug/dL T4 Normal THYROXIN 11.4 Performed By: #### L501.58300, L501.9310, L501.9520 #### [facility] [address] [place], [address] THYROID STIM HORMONE Collected: 02/23/2018 Status: F Source: [place] (TSH) 2:03 PM [facility] REPOSITORY TYPE CODE TESTS RESULT OUT OF RANGE REFERENCE UNITS LAB L501.9520 0.358-3.74 uIU/mL Normal TSH 0.58 Performed By: #### L501.98399, L501.9310, L501.9520 #### [facility] [address] [place], [address] ORTHOPEDIC VISIT Observed: 01/27/2018 Status: F Source: [place] REPORT 10:22 AM [facility] REPOSITORY [facility] Orthopaedics AND Sports Medicine [address] [place] [address] 5 [place] [address] OFFICE VISIT Date of Service: 01/24/18 MR#: [id number] Acct: [id number] Name: JIE FINNEGAN Rep #: [id number] : 1950 Provider: Kathy Ny DO Age/Sex: 67/F Location: [facility] Status: Signed Intake Intake Visit Reasons: RIGHT HIP Is patient in pain?: Yes Allergies No Known Allergies Allergy (Verified 01/24/18 09:51) Medications cholecalciferol (vitamin D3) 2,000 unit capsule 2,000 unit PO ONCE 03/10/17 [History Confirmed 07/19/17] qpbjtdn-epbqclfarx-PSB-caffeine 30 mg-50 mg-325 mg-40 mg capsule 1 cap PO Q6H PRN 03/10/17 [History Confirmed 07/19/17] fexofenadine 180 mg tablet 180 mg PO Q24H PRN 03/10/17 [History Confirmed 07/19/17] hydroxychloroquine 200 mg tablet 200 mg PO QDAY 03/10/17 [History Confirmed 07/19/17] levothyroxine 125 mcg tablet 125 mcg PO DAILY 03/10/17 [History Confirmed 07/19/17] naproxen 500 mg tablet 500 mg PO Q12H 03/10/17 [History Confirmed 07/19/17] onabotulinumtoxinA 100 unit solution for injection 200 unit INTRAV X1 03/10/17 [History Confirmed 07/19/17] rizatriptan 10 mg tablet 10 mg PO ONCE PRN 03/10/17 [History Confirmed 07/19/17] Aspirin/Caffeine [Anacin 400-32 mg Tablet] 1 ea PO PRN PRN 05/31/17 [History Confirmed 07/19/17] Docusate Sodium [Colace] 100 mg PO BID PRN PRN #10 cap 06/03/17 [Rx Confirmed 07/19/17] proMETHazine tablet [Phenergan] 25 mg PO Q4H PRN PRN #10 tab 06/03/17 [Rx Confirmed 07/19/17] erenumab-aooe 70 mg/mL subcutaneous auto-injector 70 mg SC QMONTH 01/24/18 [History Confirmed 01/24/18] PFSH Medical History Hypothyroidism (Chronic) Migraines (Chronic) Rheumatoid arthritis (Chronic) History of hysterectomy (Inactive) Surgical History Bunion (Inactive) h/o right hip arthroscopy (Inactive) Family History Father Brain tumor Mother Breast cancer Alzheimer's dementia Grandmother Cancer Social History Smoking Status: Never smoker what type of physical activity do you participate in: walking frequency: daily HPI RIGHT HIP: Details: JIE FINNEGAN is a 67 year old F here today for a followup on her right hip MRI. Patient states that she continues to have soreness over lateral right hip. She is able to lay on her side for a little while then she needs to readjust. Patient has increased pain if she ambulates for too long. Patient had an injection which was helpful for 1 week. She had an MRI which is here for review. ROS Const Reports system reviewed and no additional complaints, except as docu Eyes Reports system reviewed and no additional complaints, except as docu ENT Reports system reviewed and no additional complaints, except as docu Card Reports system reviewed and no additional complaints, except as docu Resp Reports system reviewed and no additional complaints, except as docu GI Reports system reviewed and no additional complaints, except as docu Reports system reviewed and no additional complaints, except as docu Musc Reports joint pain Skin/Breast Reports system reviewed and no additional complaints, except as docu Neuro Yes system reviewed and no additional complaints, except as docu Psych Reports system reviewed and no additional complaints, except as docu Endo Reports system reviewed and no additional complaints, except as docu Ortho Exam Right Hip Skin: Yes CDI Hip: present TTP Greater Troch Assessment AND Plan 1. Greater trochanteric bursitis of right hip M70.61 Plan Personally reviewed the MRI results and explained that she has scar tissue and bursitis returned, her treatment options are do nothing, another steroid injection, PT or scope again and do a trephination of the greater troch. Reviewed postop restrictions of a revision bursectomy. Patient declines injection today due to minimal relief of last one. Follow up as needed or sooner if pain, swelling, numbness or associated symptoms, or concerns develop. All questions answered. Patient in agreement of plan. Coding Level of Care Code Off vis,est,level 4 Diagnoses Greater trochanteric bursitis of right hip M70.61 01/27/18 1022 <Electronically signed by Kathy Ny DO> Date Kathy Ny DO Cosigner Signature: Date (if applicable) CC: LOWER EXT JOINT ONLY Observed: 12/31/2017 Status: F Source: [place] (ROUTINE) 4:52 PM [facility] REPOSITORY [facility] Imaging Services [address] [place] [address] Lower Ext Joint Only (Routine) MR#: [id number] Acct: [id number] Name: JIE FINNEGAN Rep #: [id number] : 1950 F 67 From: Abhishek Nolan MD PCP: Horacio Chand MD Status: REG CLI Study: Lower Ext Joint Only (Routine) Date of Exam: 12/31/17 Exam# [id number] Ordering Dr: Kathy Ny DO STUDY: MRI RIGHT HIP REASON FOR EXAM: Female, 67 years old. History of right mastectomy in May 2017. Bilateral hip pain. TECHNIQUE: Standardized fat and water weighted pulse sequences were obtained in all 3 orthogonal planes. COMPARISON: None. FINDINGS: Normal hip joint without articular joint space narrowing. Normal acetabulum. Normal labrum. Normal femoral head. Normal femoral neck and intratrochanteric region. Normal gluteus minimus, medius and iliopsoas tendons and distal insertions. There is bilateral greater trochanteric bursitis (coronal series 4 images 11-18). There are postsurgical changes in the region of the right greater trochanteric region with focal low signal intensity which may represent fibrosis (axial series 6 images 13-20). Normal superior and inferior pubic rami. Normal pubic symphysis. Normal ischial tuberosity. Normal origin of the hamstring tendons. Normal visualized iliac wing, sacroiliac joint, and sacral ala. Normal visualized soft tissue structures of the pelvis. MRI/Lower Ext Joint Only (Routine) IMPRESSION: Bilateral greater trochanteric bursitis. Postsurgical changes in the region of the right greater trochanter. No other significant abnormality is present. Electronically Signed: Abhishek Nolan MD at 18:24 EDT , Service support , CC: Kathy Ny DO; Horacio Chand MD Piercing Artist: Signed ORTHOPEDIC VISIT Observed: 12/16/2017 Status: F Source: [place] REPORT 11:22 AM [facility] Orthopaedics AND Sports Medicine [address] [place] [address] OFFICE VISIT Date of Service: 12/14/17 MR#: [id number] Acct: [id number] Name: JIE FINNEGAN Rep #: [id number] : 1950 Provider: Kathy Ny DO Age/Sex: 67/F Location: [facility] Status: Signed Intake Intake Visit Reasons: RIGHT HIP Allergies No Known Allergies Allergy (Verified 10/26/17 10:20) Medications cholecalciferol (vitamin D3) 2,000 unit capsule 2,000 unit PO ONCE 03/10/17 [History Confirmed 07/19/17] fgvjzqj-imeyvurjbh-GYT-caffeine 30 mg-50 mg-325 mg-40 mg capsule 1 cap PO Q6H PRN 03/10/17 [History Confirmed 07/19/17] fexofenadine 180 mg tablet 180 mg PO Q24H PRN 03/10/17 [History Confirmed 07/19/17] hydroxychloroquine 200 mg tablet 200 mg PO QDAY 03/10/17 [History Confirmed 07/19/17] levothyroxine 125 mcg tablet 125 mcg PO DAILY 03/10/17 [History Confirmed 07/19/17] naproxen 500 mg tablet 500 mg PO Q12H 03/10/17 [History Confirmed 07/19/17] onabotulinumtoxinA 100 unit solution for injection 200 unit INTRAV X1 03/10/17 [History Confirmed 07/19/17] rizatriptan 10 mg tablet 10 mg PO ONCE PRN 03/10/17 [History Confirmed 07/19/17] Aspirin/Caffeine [Anacin 400-32 mg Tablet] 1 ea PO PRN PRN 05/31/17 [History Confirmed 07/19/17] Docusate Sodium [Colace] 100 mg PO BID PRN PRN #10 cap 06/03/17 [Rx Confirmed 07/19/17] proMETHazine tablet [Phenergan] 25 mg PO Q4H PRN PRN #10 tab 06/03/17 [Rx Confirmed 07/19/17] PFSH Medical History Hypothyroidism (Chronic) Migraines (Chronic) Rheumatoid arthritis (Chronic) Surgical History Bunion (Inactive) History of hysterectomy (Inactive) h/o right hip arthroscopy (Inactive) Family History Father Brain tumor Mother Breast cancer Alzheimer's dementia Grandmother Cancer Social History Smoking Status: Never smoker what type of physical activity do you participate in: walking frequency: daily HPI RIGHT HIP: Details: JIE FINNEGAN is a 67 year old F here today for f/u 06/03/17 right hip scope, she continues to have pain when laying on her side. She has lateral hip pain when she sits as well, the worst is at night. The injection from 3 months ago was only helpful for a month. Patient denies any groin pain and no clicking or catching. Denies numbness, tingling or other associated symptoms. Ortho Exam Right Hip Date of Surgery: 06/01/17 Skin: Yes CDI Hip: present TTP Greater Troch Assessment AND Plan 1. Post-operative pain G89.18 Plan still having pain postop and is affecting adls. at this point need to reeval to see if pain is from rescarring of itb from initial release. Reviewed the changes of the release scarring, with her continued pain 6 months after surgery we will order an MRI, patient declines any repeat injections as her relief was minimal. Follow up after MRI or sooner if pain, swelling, numbness or associated symptoms, or concerns develop. All questions answered. Patient in agreement of plan. Orders Orders: 2. 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 12/16/17 1122 <Electronically signed by Kathy Ny DO> Date Kathy Ny DO Cosigner Signature: Date (if applicable) CC: ORTHOPEDIC VISIT Observed: 10/26/2017 Status: F Source: [place] REPORT 10:24 AM [facility] Orthopaedics AND Sports Medicine [address] [place] [id number] OFFICE VISIT Date of Service: 10/26/17 MR#: [id number] Acct: [id number] Name: JIE FINNEGAN Rep #: [id number] : 1950 Provider: Kathy Ny DO Age/Sex: 66/F Location: [facility] Status: Signed Intake Intake Visit Reasons: right hip Is patient in pain?: Yes Allergies No Known Allergies Allergy (Verified 10/26/17 10:20) Medications cholecalciferol (vitamin D3) 2,000 unit capsule 2,000 unit PO ONCE 03/10/17 [History Confirmed 07/19/17] uzriaqt-qybqwgaews-GXK-caffeine 30 mg-50 mg-325 mg-40 mg capsule 1 cap PO Q6H PRN 03/10/17 [History Confirmed 07/19/17] fexofenadine 180 mg tablet 180 mg PO Q24H PRN 03/10/17 [History Confirmed 07/19/17] hydroxychloroquine 200 mg tablet 200 mg PO QDAY 03/10/17 [History Confirmed 07/19/17] levothyroxine 125 mcg tablet 125 mcg PO DAILY 03/10/17 [History Confirmed 07/19/17] naproxen 500 mg tablet 500 mg PO Q12H 03/10/17 [History Confirmed 07/19/17] onabotulinumtoxinA 100 unit solution for injection 200 unit INTRAV X1 03/10/17 [History Confirmed 07/19/17] rizatriptan 10 mg tablet 10 mg PO ONCE PRN 03/10/17 [History Confirmed 07/19/17] Aspirin/Caffeine [Anacin 400-32 mg Tablet] 1 ea PO PRN PRN 05/31/17 [History Confirmed 07/19/17] Docusate Sodium [Colace] 100 mg PO BID PRN PRN #10 cap 06/03/17 [Rx Confirmed 07/19/17] proMETHazine tablet [Phenergan] 25 mg PO Q4H PRN PRN #10 tab 06/03/17 [Rx Confirmed 07/19/17] PFSH Medical History Hypothyroidism (Chronic) Migraines (Chronic) Rheumatoid arthritis (Chronic) Surgical History Bunion (Inactive) History of hysterectomy (Inactive) h/o right hip arthroscopy (Inactive) Family History Father Brain tumor Mother Breast cancer Alzheimer's dementia Grandmother Cancer Social History Smoking Status: Never smoker what type of physical activity do you participate in: walking frequency: daily HPI right hip: Details: JIE FINNEGAN is a 66 year old F here today for continued right hip pain. Patient is s/p right hip scope dos 06/03/[address] Zuñiga. Patient notes that she continues to have lateral hip soreness. She denies any popping or clicking. Patient has increased pain with sitting. She is unable to lay on her right side due to her pain. Patient complains of a grinding sensation when ambulating. She describes her pain as a deep bruise. She has been exercising and doing strengthening with no pain. Patient denies any recent injections. Denies numbness, tingling or other associated symptoms. ROS Const Reports system reviewed and no additional complaints, except as docu Eyes Reports system reviewed and no additional complaints, except as docu ENT Reports system reviewed and no additional complaints, except as docu Card Reports system reviewed and no additional complaints, except as docu Resp Reports system reviewed and no additional complaints, except as docu GI Reports system reviewed and no additional complaints, except as docu Reports system reviewed and no additional complaints, except as docu Musc Reports joint pain Skin/Breast Reports system reviewed and no additional complaints, except as docu Neuro Yes system reviewed and no additional complaints, except as docu Psych Reports system reviewed and no additional complaints, except as docu Endo Reports system reviewed and no additional complaints, except as docu Ortho Exam Right Hip Skin: Yes CDI Contralateral Normal: Yes Hip: present TTP Greater Troch Office Procedures Ortho Injections Injections Yes Greater Trochanteric Bursa Injection Right Details: Obtained consent for injection. Under sterile conditions, injected the patients right greater trochanter with a 10cc cocktail of 8cc bupivacaine and 2cc kenalog. The patient tolerated the injection well without any noted complication. Patient should call our office if redness develops, pain worsens or if they have any concerns. Office Meds Kenalog Performing Provider: Kathy Ny DO Administered by: Kathy Ny DO on 10/26/17 09:38 Dose Route Admin Location Lot Number Expiration Date NDC Wooden Box Maker 80 mg Intrabursal right greater [id number] 07/27/18 0895-4122-37 [facility] oc QUIBB Assessment AND Plan 1. Greater trochanteric bursitis of right hip M70.61 Plan rereviewed patients back history including MRI and surgical reports as patient new to me in office. Explained that the IT can scar down and the bursa can grow back. She is having ttp at greater troch and that we can treat with injections or revision resection after repeat MRI, later if conservative treatments fail. Gave injection today and she can try an otc topical cream Follow up prn or sooner if pain, swelling, numbness or associated symptoms, or concerns develop. All questions answered. Patient in agreement of plan. Orders Orders: Medications Discontinued: Kenalog (triamcinolone acetonide) [id number] mg (8 mL) Intrabursal ONCE NS Edmundo Mayen ued Reason: Office Medication has been Docume nted as given Coding Level of Care Code Off vis,est,level 4 Diagnoses Greater trochanteric bursitis of right hip M70.61 Additional Codes travel ticketing reviewer.greater ([id number]) 10/26/17 1024 <Electronically signed by Kathy Ny DO> Date Kathy Ny DO Cosigner Signature: Date (if applicable) CC: FREE T3 Collected: 08/25/2017 Status: F Source: [place] 11:15 AM [facility] REPOSITORY TYPE CODE TESTS RESULT OUT OF RANGE REFERENCE UNITS LAB L501.43304 2.18-3.98 pg/mL Normal FREE T3 2.2 Performed By: #### L501.61786, L501.9310, L501.9520 #### [facility] [address] [place], [address] T4 TOTAL, THYROXIN Collected: 08/25/2017 Status: F Source: [place] 11:15 AM [facility] REPOSITORY TYPE CODE TESTS RESULT OUT OF RANGE REFERENCE UNITS LAB L501.9310 4.8-13.9 ug/dL T4 Normal THYROXIN 10.0 Performed By: #### L501.75811, L501.9310, L501.9520 #### [facility] [address] [place], [address] THYROID STIM HORMONE Collected: 08/25/2017 Status: F Source: [place] (TSH) 11:15 AM [facility] REPOSITORY TYPE CODE TESTS RESULT OUT OF RANGE REFERENCE UNITS LAB L501.9520 0.358-3.74 uIU/mL Normal TSH 0.67 Performed By: #### L501.84113, L501.9310, L501.9520 #### [facility] [address] [place], [address] ORTHOPEDIC VISIT Observed: 07/23/2017 Status: F Source: [place] REPORT 9:29 AM [facility] REPOSITORY [facility] [address] [place] [address] [place] [address] OFFICE VISIT Date of Service: 07/19/17 MR#: [id number] Acct: [id number] Name: JIE FINNEGAN Richie Rep #: [id number] : 1950 Provider: Robert Zuñiga DO Age/Sex: 66/F [place] [facility] [place]: Signed Intake Intake Visit Reasons: RIGHT HIP Is patient in pain?: Yes Pain scale (1-10): 1 Allergies No Known Allergies Allergy (Verified 05/31/17 09:16) Medications cholecalciferol (vitamin D3) 2,000 unit capsule 2,000 unit PO ONCE 03/10/17 [History Confirmed 07/19/17] cznwtak-bspzleznki-TJH-caffeine 30 mg-50 mg-325 mg-40 mg capsule 1 cap PO Q6H PRN 03/10/17 [History Confirmed 07/19/17] fexofenadine 180 mg tablet 180 mg PO Q24H PRN 03/10/17 [History Confirmed 07/19/17] hydroxychloroquine 200 mg tablet 200 mg PO QDAY 03/10/17 [History Confirmed 07/19/17] levothyroxine 125 mcg tablet 125 mcg PO DAILY 03/10/17 [History Confirmed 07/19/17] naproxen 500 mg tablet 500 mg PO Q12H 12/13/17 [History Confirmed 07/19/17] onabotulinumtoxinA 100 unit solution for injection 200 unit INTRAV X1 03/10/17 [History Confirmed 07/19/17] rizatriptan 10 mg tablet 10 mg PO ONCE PRN 03/10/17 [History Confirmed 07/19/17] Aspirin/Caffeine [Anacin 400-32 mg Tablet] 1 ea PO PRN PRN 05/31/17 [History Confirmed 07/19/17] Docusate Sodium [Colace] 100 mg PO BID PRN PRN #10 cap 06/03/17 [Rx Confirmed 07/19/17] proMETHazine tablet [Phenergan] 25 mg PO Q4H PRN PRN #10 tab 06/03/17 [Rx Confirmed 07/19/17] PFSH Medical History Hypothyroidism (Chronic) Migraines (Chronic) Rheumatoid arthritis (Chronic) Surgical History Bunion (Inactive) History of hysterectomy (Inactive) h/o right hip arthroscopy (Inactive) Family History Father Brain tumor Mother Breast cancer Alzheimer's dementia Grandmother Cancer Social History Smoking Status: Never smoker what type of physical activity do you participate in: walking frequency: daily HPI RIGHT HIP: Details: JIE FINNEGAN is a 66 year old F here today for f/u from right hip scope 06/03/17. She is continuing PT and getting stronger, still has dull pain. She is using vitamin e for scar massage and to break up the scar tissue. Denies numbness, tingling or other associated symptoms. She has normal gait today. ROS [facility] Reports joint pain, Reports as per HPI Ortho Exam Right Hip HIP: Alert oriented 3 no acute distress. Appropriate eye contact and affect. Otherwise intact from L1-S1 distributions. She has positive pulses. Gluteal strength is 5 out of 5. Patient continues have some tenderness palpation across the gluteal trochanter at the site of her IT band resection which is understandable. Otherwise patient really says that she is doing well. Reports some physical therapy also states that she is doing well. Patient has improved sitting and lying pain. Assessment AND Plan Problems 1. Orthopedic aftercare Z47.89 Plan Assessment: After orthopedics status post right hip arthroscopic IT band lengthening and resection and bursectomy. Doing well. Plan: This point time we will see the patient back in about 6 weeks. Told the patient that she has been to be sore for a while my patient seemed to take time to get better from that I think patients is the name of again right now. Otherwise she is doing well. Any major issues return. Patient agrees with plan. Coding Level of Care Code Global Post Op Diagnoses Orthopedic aftercare Z47.89 07/23/17 0929 <Electronically signed by Robert Zuñiga DO> Date Robert Zuñiga DO Cosigner Signature: Date (if applicable) CC: ORTHOPEDIC VISIT Observed: 06/24/2017 Status: F Source: [place] REPORT 10:00 AM [facility] [address] [place] [address] OFFICE VISIT Date of Service: 06/16/17 MR#: [id number] Acct: [id number] Name: JIE FINNEGAN Rep #: [id number] : 1950 Provider: Robert Zuñiga DO Age/Sex: 66/F Location[place] [facility] Status: Signed Intake Intake Visit Reasons: RIGHT HIP Is patient in pain?: No Allergies No Known Allergies Allergy (Verified 05/31/17 09:16) Medications cholecalciferol (vitamin D3) 2,000 unit capsule 2,000 unit PO ONCE 03/10/17 [History Confirmed 05/31/17] hmjtemi-kxayevuftn-VTE-caffeine 30 mg-50 mg-325 mg-40 mg capsule 1 cap PO Q6H PRN 03/10/17 [History Confirmed 05/31/17] fexofenadine 180 mg tablet 180 mg PO Q24H PRN 03/10/17 [History Confirmed 05/31/17] hydroxychloroquine 200 mg tablet 200 mg PO QDAY 03/10/17 [History Confirmed 05/31/17] levothyroxine 125 mcg tablet 125 mcg PO DAILY 03/10/17 [History Confirmed 06/03/17] naproxen 500 mg tablet 500 mg PO Q12H 03/10/17 [History Confirmed 05/31/17] onabotulinumtoxinA 100 unit solution for injection 200 unit INTRAV X1 03/10/17 [History Confirmed 05/31/17] rizatriptan 10 mg tablet 10 mg PO ONCE PRN 03/10/17 [History Confirmed 05/31/17] Aspirin/Caffeine [Anacin 400-32 mg Tablet] 1 ea PO PRN PRN 05/31/17 [History Confirmed 05/31/17] Docusate Sodium [Colace] 100 mg PO BID PRN PRN #10 cap 06/03/17 [Rx] proMETHazine tablet [Phenergan] 25 mg PO Q4H PRN PRN #10 tab 06/03/17 [Rx] PFSH Medical History Hypothyroidism (Chronic) Migraines (Chronic) Rheumatoid arthritis (Chronic) Surgical History Bunion (Inactive) History of hysterectomy (Inactive) Family History Father Brain tumor Mother Breast cancer Alzheimer's dementia Grandmother Cancer Social History Smoking Status: Never smoker what type of physical activity do you participate in: walking frequency: daily HPI RIGHT HIP: Details: JIE FINNEGAN is a 66 year old F here today for f/u right hip scope 06/03/17. She is ambulating well with no pain, she has discoloration that is beginning to fall distally from gravity but it is not painful to touch. Denies numbness, tingling or other associated symptoms. ROS Brennon Denies abnormal walking, Reports as per HPI, Reports muscle weakness Neuro No abnormal walking Ortho Exam Right Hip Skin: Yes CDI Contralateral Normal: Yes Hip: present eccymosis, absent soft tissue swelling, absent erythema, absent TTP Greater Troch flexion: 110 degrees extension: 20 degrees internal rotation @90 degree flexion: 40 degrees external rotation @90 degree extension: 60 degrees abduction: 50 degrees adduction: 30 degrees Impingement Test: 1 Labral Stress Test: 1 Greg test: 1 Homans Sign: No HIP: Incision clean dry intact no signs of erythema ecchymosis as expected. No drainage. No calf pain negative Homans. Intraoperative findings discussed. Assessment AND Plan Problems 1. Orthopedic aftercare Z47.89 Plan Assessment: After orthopedic status post right hip arthroscopic or endoscopic IT band lengthening and trochanteric bursectomy. Plan: At this point time patient is doing well. Restart physical therapy and see her back in 4 weeks. Any major issues return. Patient agrees to plan. Coding Level of Care Code Global Post Op Diagnoses Orthopedic aftercare Z47.89 06/24/17 1000 <Electronically signed by Robert Zuñiga DO> Date Robert Zuñiga DO Cosigner Signature: Date (if applicable) CC: INITAL EVALUATION (1) Observed: 06/21/2017 Status: F Source: [place] - PT 8:52 AM [facility] REPOSITORY [facility] [address] [place] [address]. [address] [place] [address] Fax REHABILITATION SERVICES INITIAL EVALUATION MR#: [id number] Acct: [id number] Name: JIE FINNEGAN Rep #: [id number] : 1950 66 From: Kirill Eagle DPT Referring DrElia: Robert Zuñiga DO Status: REG RCR Insurance: [facility] SELF PAY INSURANCE Patient's Visit Information JIE FINNEGAN is a 66 year old F referred to Physical Therapy by Robert Zuñiga DO DR.MTODD with a diagnosis of R trochanteric bursectomy and IT band recection. Date of Evaluation: 06/16/17 Physical Therapist: Kirill Eagle - Visit Plan Frequency: 2-3x /Week Duration: 4-6 Weeks Plan: Start with ROM activities, HS stretching, hip flexor stretching. Bike, core strengthening, Progress to hip strengthening 4 weeks DOS as tolerated. May use modalities to reduce symptoms. - Subjective Subjective: Pt. is here today for her initial evaluation with diagnosis of R trochanteric bursectomy and IT band recection. DOS: 06/03/17. Pt. arrives today without crutches with 4/10 pain with walking. Pt. had previously trialed conservative care without postive outcome, resulting in need for surgical intervention. Pt. reports weaning from crutches today. Pt. has been icing frequently with postive results. Pt. reports having increased pain with walkking, stairs, lifting her leg and sleeping on her R side. Decreased pain: ice and OTC pain meds. Pt. denies N/T in either LE. Pt. is pleased with current progress. Pt. has been sleeping okay, as long as I don't roll on my right side. Pt. has not been completing any exercises since surgery. Pt. is getting around her house without limitations. Pt. is hopful to increase strength, decrease pain and get back to all recreational activities without limitations. - Pain R lateral hip Pain Intensity (Out of 10): 3 Pain Intensity Range: 1, 6 - Objective POSTURE: Pt. has normal DIANE in stance, equal iliac crest heights, with equal wt. shifting between bilateral LEs. PALPATION: Pt. has tenderness at lateral hip, no pain at gluteal region or anterior hip. NEUROLOGICAL: Pt. has normal sensation to light and sharp touch of bilateral LEs. Pt. has 2+ achilles and patellar DTR bilaterally. Pt. is able to rise on heels and toes without increase in symptoms or LOB. ROM: R hip- flexion 88deg, abd 40deg, ext 8deg, IR/ER not test. L hip- flexion 120deg, abd 50deg, ext 12deg, ER 68deg, IR 32deg. MMT: RLE- ankle 5/5 throughout; knee- ext 4/5 increase NW, flexion 4+/5; hip- flexion 4/5, ext 4/5. LLE- ankle- 5/5 throughout; knee 5/5 throughout; hip- flexion 4+/5, abd 4/5, ext 4+/5. GAIT: Pt. has decreased step length with LLE. Pt. has increased R lateral lean during R stance phase. STAIRS: Pt. completes with step to pattern with LLE loading throughout with use of BHR. - Goals Goal 1:: Pt. to be I with HEP. Goal Time Frame: 4-6 Weeks Goal 2:: Pt. to have increased R hip ROM to full without increase in symptoms Goal Time Frame: 4-6 Weeks Goal 3:: Pt. to have increased R hip strength increased by 1/2 grade in all directions without increase in symptoms. Goal Time Frame: 4-6 Weeks Goal 4:: Pt. to have 0/10 pain with ambulation for unlimited distances. Goal Time Frame: 4-6 Weeks Goal 5:: Pt. to negotiate steps with 1 HR with reciprocal pattern without increase in symptoms. Goal Time Frame: 4-6 Weeks Goal 6:: Pt. to sleep throughout the night with 0/10 pain in R hip allowing for increased quality of life. Goal Time Frame: 4-6 Weeks - Rehabilitation Potential Physical Therapy Diagnosis: Pt. has signs and symptoms consistent wtih R trochanteric bursectomy and IT band recection. Pt. has subsequent hypomobility of her R hip, RLE/core weakness, increased pain and difficulty with gait. Pt. would benefit from Pt to increase hip ROM, strength, decfrease pain and increase functional mobility. Rehabilitation Potential: Excellent - Anticipated Interventions Patient/Client Instruction: Educate patient on: Condition, Plan of Care, Risk Factors, Benefits of Fitness Program For the Purpose of:: To improve safety, To improve health and function, To foster healthy habits, To improve decision making, To facilitate caregiver knowledge, To improve self management, To prevent re-injury, To improve ability to perform tasks related to life management, To improve tolerance to ADL's Therapeutic Exercise to Include: Strength training, Power training, Endurance training, Balance training, Body mechanics, Postural training, Flexibilty training, Gait and locomotor training, Passive ROM, Active ROM, Dynamic Lumbar Stabilization For the Purpose of:: To decrease pain, To increase ROM, To improve nutrient delivery to tissue, To increase oxygenation perfusion, To improve muscle performance and motor function, To improve ability to perform ADL's, To increase tolerance to activity/condition/position, To improve gait and locomotor functions, To improve health of tissue, To decrease soft tissue restriction, To increase flexibility/ROM, To improve endurance, To improve balance Manual Therapy Techniques to Include: Petrissage, Massage, Scar massage, Soft tissue mobilization For the Purpose of:: To decrease pain, To increase ROM, To improve nutrient delivery to tissue, To increase oxygenation perfusion, To improve muscle performance and motor function IF ES: Yes Cryotherapy (ice pack, ice massage): Yes For the Purpose of:: To decrease pain, To decrease swelling/inflammation, To increase ROM Thank you for the opportunity to evaluate your patient. For Medicare and Medicare HMO plans, please review the plan of care and approve it. It will need to be FAXED BACK to us at [phone] for Medicare purposes. Please let me know if there are questions or concerns regarding this plan of care. Physician Signature: Date: <Electronically signed by Kirill Eagle DPT> 06/21/17 0852 CC: Robert Zuñiga DO; Horacio Chand MD CLS Signed For Medicare only, by signing this I certify the plan of care. Physicians Signature Date PT D/C SUMMARY (1) Observed: 06/16/2017 Status: F Source: [place] 3:52 PM [facility] REPOSITORY [facility] [address] [place] [address] Fax REHABILITATION SERVICES DISCHARGE SUMMARY MR#: [id number] Acct: [id number] Name: JIE FINNEGAN Rep #: [id number] : 1950 66 From: Angie SANCHEZT Referring Dr.: Robert Zuñiga DO Status: REG RCR Insurance: [employer] SELF PAY INSURANCE HP - PT D/C Summary It has been my pleasure to treat JIE Quiroz СВЕТЛАНАCARA under orders from Robert Zuñiga DO, MTODD for the diagnosis of Right Glut Tendonitis for a total of 6 visit(s). Discharge Date: Please see the following information for a summary of their discharge status. - Subjective Subjective: Patient reports its not as bad today- 2-06/05. Sometimes she feels its better but sometimes its not as good. But overall better. - Objective Objective/Function: Posture: improving. Gait: no deviation. ROM: WFL. Strength: Ankle: 5/5, Knee: 5/5, Hip: 4+/5 Core: fair - Goals Goal 1:: Patient will be I with HEP and progression Goal Progress: Progressing Goal 2:: Patient will report 0/10 pain for 1 week Goal Progress: Progressing Goal 3:: Patient will demo 5/5 strength in LE Goal Progress: Progressing Goal 4:: Patient will maintain proper posture t/o tx session to demo increased core s/s Goal Progress: Progressing - Plan Plan: Cont with Poc - D/C Information If there are questions or concerns regarding this patient's physical therapy, please feel free to call me at [phone]. Thank you for the referral of this patient. Sincerely, Angie Mendenhall <Electronically signed by Angie Mendenhall DPT> 06/16/17 1552 CC: Robert uZñiga DO; Horacio Chand MD ELR Signed OPERATIVE REPORT Observed: 06/03/2017 Status: F Source: [place] 11:48 AM [facility] REPOSITORY [facility] Medical Records Department [address] [place] [address] Operative Report 06/03/17 1143 MR#: [id number] Acct: [id number] Name: JIE FINNEGAN Rep #: [id number] : 1950 66 From: Robert Zuñiga DO PCP: Horacio Chand MD Status: [facility] Location: [place] [address] Report of Operation Date of Procedure: 06/03/17 Pre-Operative Diagnosis: Hip gluteal tendinopathy and trochanteric bursitis. Post-Operative Diagnosis: Same as above Surgery/Procedure Performed:: Right hip endoscopic trochanteric bursectomy IT band lengthening and gluteal debridement. Description of Surgical Findings:: 66-year-old female with recalcitrant right hip pain that failed nonoperative management to include NSAIDs activity modifications physical therapy and injections. Patient had an MRI of the hip that did not show any obvious gluteal tears but just peritrochanteric tendinitis and gluteal tendinopathy. Having failed conservative measures patient elected for operative procedure. She was met in the holding area where the right lower extremity was marked and identified by the with surgeon. She was taken to the operating room in satisfactory condition with somewhat to place to identify patient operative procedure and limb. Patient received 2 g Ancef. She underwent a successful intubation. She was then placed into the left lateral decubitus position using beanbag for stability. She had a well-padded down leg pad. We also placed an appropriate placed axillary roll. She was then prepped and draped in usual fashion. Initially an 18-gauge spinal needle was introduced to center cells over top of the trochanter. We then insufflated underneath the IT band with approximately 6 cc of normal saline solution. I subsequently made 2 1 cm incisions about 3 fingerbreadths above the trochanter and 3 finger breaths below the trochanter in line with my needle localization. At that point time the soft tissues above the IT band were identified using the scope and gentle debridement with a shaver. We also were able to identify the needle at that time. We subsequently made a longitudinal incision moving both proximally and distally across the IT band using standard technique until the vastus lateralis fascia was identified and also the gluteal fascia. At that point time a standard debridement of any trochanteric bursitis was undertaken gently internally and externally rotating the hip to allow for good expression of the gluteal muscles. There was no obvious tear patterns to the gluteal insertions. Just some mild fraying on the bursal side. I elected to just gently debrided again using mechanical shaver and vapor cautery. I subsequently placed a small crucifix incision into the IT band over the trochanter both proximally or superiorly and inferiorly. At that point time a repeat evaluation of the gluteal muscles was evaluated again through internal and external rotation of the hip distally. No further injury pattern was identified. At that point time the scope was retracted and excess fluid was removed. She was then injected with 50 cc 0.25% Marcaine around the portal sites and across the IT band. We then closed using simple suture technique with 3-0 nylon. She was dressed in the usual fashion with Xeroform 4 x 4's ABDs and Medipore tape. I was scrubbed and available time during our procedure. If you require any further formation please do not hesitate to contact me. No drains or complications no implants microsoft solutions architect: None Type of Anesthesia:: General Specimen's removed: None Estimated Blood Loss (mL): 10 Grafts/Implants Used: None - Complications None - Admit VTE Documentation VTE Present on Admission: No VTE Mechan Device Prophylaxis: SCD's, Knee High BOLIVAR Hose VTE Pharm Prophylaxis ordered?: No Reason prophylaxis not ordered:: Treatment Not Indicated 06/03/17 1148 <Electronically signed by Robert Zuñiga DO> Date Robert Zuñiga DO CC: Robert Zuñiga DO; Horacio Chand MD Signed DISCHARGE INSTRUCTION Observed: 06/03/2017 Status: F Source: [place] 10:41 AM [facility] REPOSITORY [facility] Medical Records Department [address] [place] [address] Instructions for Home/Discharge Instructions 06/03/17 1039 MR#: [id number] Acct: [id number] Name: JIE FINNEGAN Rep #: [id number] : 1950 66 From: Robert Zuñiga DO PCP: Horacio Chand MD Status: REG [facility] Discharge Activity: Return to Normal Activity, May not drive while taking narcotic pain medications., May Shower, Use Crutches, - - Crutches as needed. May shower in (days): 2 May resume sexual activity in: 6 weeks Ice area for (Minutes): 20 Weight Bearing Status: Weight bearing as tolerated Call your doctor if your incision/area has: Continuous Slow Oozing, Sudden Increased Bleeding, Increased Pain/ Swelling, Increased Redness, Foul Smelling Discharge, Swelling at the incision site Call your doctor if you observe: Fever of 101 or Higher, Coldness, Increased Pain, Numbness or Tingling, Change in Color, Inability to urinate, Inability to have a bowel movement, Using more than one pad per hour, Shortness of breath, Dizziness, Fainting spells, Swelling in the ankles, Chest pain, Prolonged hiccoughing, Increased palpitations (irregular heartbeat), Calf discomfort, Uncontrolled pain Suture Line Care: Avoid Pulling/Pushing, Avoid Pinching/Bending Change Dressing in (Days):: 2 Remove Dressing in (days):: 2 Cleanse incision/area with: Soap AND Water Additional Dressing/Incision Instructions:: Replace dressing as needed. May use simple Band-Aids as long as there is no drainage. May shower in 2 days but do not submerge wound. Allergies/Adverse Reactions: Allergies No Known Allergies Allergy (Verified 05/31/17 09:16) Medications to take at Discharge cholecalciferol (vitamin D3) 2,000 unit capsule 2,000 unit PO ONCE 03/10/17 xwdlhwa-dkcptccoap-TZL-caffeine 30 mg-50 mg-325 mg-40 mg capsule 1 cap PO Q6H PRN 03/10/17 fexofenadine 180 mg tablet 180 mg PO Q24H PRN 03/10/17 hydroxychloroquine 200 mg tablet 200 mg PO QDAY 03/10/17 levothyroxine 125 mcg tablet 125 mcg PO DAILY 03/10/17 naproxen 500 mg tablet 500 mg PO Q12H 03/10/17 onabotulinumtoxinA 100 unit solution for injection 200 unit INTRAV X1 03/10/17 rizatriptan 10 mg tablet 10 mg PO ONCE PRN 03/10/17 Aspirin/Caffeine [Anacin 400-32 mg Tablet] 1 each PO PRN PRN 05/31/17 Docusate Sodium [Colace] 100 mg PO BID PRN PRN #10 cap 06/03/17 Hydrocodone Bitart/Apap 5-325 [[place] 5/325] 1 - 2 tablet PO Q6H PRN PRN #60 tablet 06/03/17 ProMETHAzine [Phenergan] 25 mg PO Q4H PRN PRN #10 tab 06/03/17 The following prescriptions were given: ProMETHAzine [Phenergan] 25 mg PO Q4H PRN PRN #10 tab PRN Reason: Nausea Hydrocodone Bitart/Apap 5-325 [[place] 5/325] 1 - 2 tablet PO Q6H PRN PRN #60 tablet PRN Reason: Pain Docusate Sodium [Colace] 100 mg PO BID PRN PRN #10 cap PRN Reason: Constipation Primary Care Physician: Horacio Chand MD [Primary Care Provider] - Please Follow Up With: Robert Zuñiga DO When: call [facility] for appt for 2 weeks Proposed Discharge Date: 06/03/17 06/03/17 1041 <Electronically signed by Robert Zuñiga DO> Date Robert Zuñiga DO CC: Horacio Chand MD CBC W/DIFF, AUTOMATED Collected: 05/26/2017 Status: F Source: [place] 2:04 PM [facility] REPOSITORY TYPE CODE TESTS RESULT OUT OF RANGE REFERENCE UNITS LAB L100.1000 4.4-11.0 K/mm3 Normal WBC 5.3 LAB L100.1200 4.2-5.4 M/mm3 Normal RBC 4.62 LAB L100.1300 12.0-15.0 g/dl Normal HGB 13.9 LAB L100.1400 37-47 % Normal HCT 42.4 LAB L100.1500 81-99 fL Normal MCV 91.8 LAB L100.1600 27.0-32.0 pg Normal MCH 30.1 LAB L100.1700 32-36 g/gl Normal MCHC 32.8 LAB L100.1810 11.6-14.6 % Normal RDW CV 13.0 LAB L100.1820 35.1-43.9 fl Normal RDW SD 43.4 LAB L100.1900 150-450 K/mm3 Normal PLT 275 LAB L100.2000 6.2-12.0 fl Normal MPV 10.8 LAB L100.2100 47-70 % Normal NEUT% 60.4 LAB L100.2200 19-41 % Normal LY% 29.9 LAB L100.2300 0-10 % Normal MONO% 7.4 LAB L100.2400 0-5 % Normal EO% 1.7 LAB L100.2500 0-1 % Normal BASO% 0.4 LAB L100.2550 0.0-0.9 % Normal IM GRAN % 0.200 Result Comment: IG% - Immature Granulocytes (promyelocytes, myelocytes and metamyelocytes) > 1% indicates that a LEFT SHIFT is Present. LAB L100.2620 2.0-7.7 X10 3/uL Normal Absolute Neut 3.2 LAB L100.2720 0.83-4.51 X10 3/ul Normal Absolute Lymph 1.58 Performed By: #### L100.0100 #### [facility] [address] [place], [place], [address] BASIC METABOLIC Collected: 05/26/2017 Status: F Source: [place] PROFILE (BMP) 2:04 PM [facility] REPOSITORY TYPE CODE TESTS RESULT OUT OF RANGE REFERENCE UNITS LAB L501.0100 74-106 mg/dL Normal GLU 90 Result Comment: Please note revised GLUCOSE reference range effective 2017. LAB L501.1000 7-18 mg/dL High BUN 19 LAB L501.1100 0.55-1.02 mg/dL Normal CREAT,SERUM 0.90 Result Comment: The validity of the calculated GFR AND GFRAA in patients over 70 years has not been determined. Clinical correlation is essential. LAB L501.1110 >60 mL/min Normal EST GFR 67 Result Comment: Non- GFR Calc LAB L501.1115 >60 mL/min Normal EST GFR - AA 81 Result Comment: GFR Calc LAB L501.1300 10-20 RATIO High BUN/CRE 21.0 LAB L501.2200 8.5-10.1 mg/dL CA Normal 8.8 LAB L501.5300 136-145 mmol/L NA Normal 141 LAB L501.5600 3.5-5.1 mmol/L K Normal 4.0 LAB L501.5900 98-107 mmol/L CL Normal 104 LAB L501.6100 21.0-32.0 mmol/L Normal CO2 29.0 LAB L501.6200 5-15 Normal GAP 8 Performed By: #### L500.2500, L501.18576, L501.9310, L501.9520 #### [facility] [address] [place], [address] FREE T3 Collected: 05/26/2017 Status: F Source: [place] 2:04 PM [facility] REPOSITORY TYPE CODE TESTS RESULT OUT OF RANGE REFERENCE UNITS LAB L501.26378 2.18-3.98 pg/mL Normal FREE T3 2.3 Performed By: #### L500.2500, L501.71156, L501.9310, L501.9520 #### [facility] [address] [place], [address] T4 TOTAL, THYROXIN Collected: 05/26/2017 Status: F Source: [place] 2:04 PM [facility] REPOSITORY TYPE CODE TESTS RESULT OUT OF RANGE REFERENCE UNITS LAB L501.9310 4.8-13.9 ug/dL T4 Normal THYROXIN 10.6 Performed By: #### L500.2500, L501.28587, L501.9310, L501.9520 #### [place] [address] [place], [place], [address] THYROID STIM HORMONE Collected: 05/26/2017 Status: F Source: [place] (TSH) 2:04 PM [facility] REPOSITORY TYPE CODE TESTS RESULT OUT OF RANGE REFERENCE UNITS LAB L501.9520 0.358-3.74 uIU/mL Low TSH 0.30 Performed By: #### L500.2500, L501.02214, L501.9310, L501.9520 #### [facility] [address] [place], [place], [address] ORTHOPEDIC VISIT Observed: 05/14/2017 Status: F Source: [place] REPORT 3:24 PM [facility] REPOSITORY [facility] [facility] [address] [place], [place] [address] OFFICE VISIT Date of Service: 05/14/17 MR#: [id number] Acct: [id number] Name: JIE FINNEGAN Rep #: [id number] : 1950 Provider: Robert Zuñiga DO Age/Sex: 66/F Location: [facility] Status: Signed Intake Intake Visit Reasons: right hip Is patient in pain?: Yes Pain scale (1-10): 3 Allergies No Known Allergies Allergy (Verified 05/14/17 14:09) Medications cholecalciferol (vitamin D3) 2,000 unit capsule 2,000 unit PO ONCE 03/10/17 [History Confirmed 05/14/17] dhucnkb-oqggjyoabm-KGI-caffeine 30 mg-50 mg-325 mg-40 mg capsule 1 cap PO Q6H PRN 03/10/17 [History Confirmed 05/14/17] fexofenadine 180 mg tablet 180 mg PO Q24H 03/10/17 [History Confirmed 05/14/17] hydroxychloroquine 200 mg tablet 200 mg PO QDAY 03/10/17 [History Confirmed 05/14/17] levothyroxine 125 mcg tablet PO 03/10/17 [History Confirmed 05/14/17] naproxen 500 mg tablet 500 mg PO Q12H 03/10/17 [History Confirmed 05/14/17] onabotulinumtoxinA 100 unit solution for injection 200 unit INTRAV ONCE 03/10/17 [History Confirmed 05/14/17] rizatriptan 10 mg tablet 10 mg PO ONCE 03/10/17 [History Confirmed 05/14/17] PFSH Medical History Hypothyroidism (Chronic) Migraines (Chronic) Rheumatoid arthritis (Chronic) Surgical History Bunion (Inactive) History of hysterectomy (Inactive) Family History Father Brain tumor Mother Breast cancer Alzheimer's dementia Grandmother Cancer Social History Smoking Status: Never smoker what type of physical activity do you participate in: walking frequency: daily HPI right hip: Details: JIE FINNEGAN is a 66 year old F here today to discuss MRI of right hip. She complains of intermittent lateral hip pain. Intermittent stabbing pain. She states she tends to lean to her left to take pressure off of the right hip. She denies radiation of pain. No tingling/numbness. She takes Naproxen on daily basis which helps some. ROS Const Reports system reviewed and no additional complaints, except as docu Eyes Reports system reviewed and no additional complaints, except as docu ENT Reports system reviewed and no additional complaints, except as docu Card Reports system reviewed and no additional complaints, except as docu Resp Reports system reviewed and no additional complaints, except as docu GI Reports system reviewed and no additional complaints, except as docu Reports system reviewed and no additional complaints, except as docu Musc Reports joint pain Skin/Breast Reports system reviewed and no additional complaints, except as docu Neuro Yes system reviewed and no additional complaints, except as docu Psych Reports system reviewed and no additional complaints, except as docu Endo Reports system reviewed and no additional complaints, except as docu Kashmir/Lymph Reports system reviewed and no additional complaints, except as docu Aller/Immun Reports system reviewed and no additional complaints, except as docu Ortho Exam Right Hip Contralateral Normal: Yes Hip: present TTP Greater Troch, absent eccymosis, absent soft tissue swelling, absent erythema flexion: 90 degrees extension: 25 degrees internal rotation @90 degree flexion: 30 degrees external rotation @90 degree extension: 45 degrees abduction: 50 degrees adduction: 20 degrees Impingement Test: 1 Labral Stress Test: 1 Special Tests: Yes WOOD test, Yes IT band snap Greg test: 1 Homans Sign: No HIP: General: well developed, well nourished in no acute distress. Head: normocephalic and atraumatic Pulses: pulses normal in all 4 extremities. Neurologic: no focal deficits, cranial nerves II-XII grossly intact with normal sensation, reflexed, coordination, muscle strength and tone. Axillary Nodes: no significant adenopathy. Psych: alert and cooperative, normal mood and affect, normal attention span and concentration. Heart regular with an S1-S2, lungs clear to auscultation bilaterally, abdomen is soft nontender nondistended with no gross specimen or megaly. Right hip MRI-evaluated myself the patient patient shows a small superior labral tear which I think is an incidental finding however the patient shows gluteal tendinopathy to the gluteus minimus predominantly and mildly to the gluteus medius. There is no obvious tear formation. This is really visualized bilaterally but right is more symptomatic Assessment AND Plan Problems 1. Tendinopathy of right gluteal region M76.01 2. Hip pain, right M25.551 Plan Assessment: Right hip gluteal tendinopathy right hip pain right hip labral tear. Plan: At this point time discussed with the patient her groin pain versus trochanteric pain. Patient feels more of her symptoms peritrochanteric. I recommendation at this point time having failed conservative measures to include NSAIDs and modifications physical therapy and injections would be for a right hip arthroscopic or bursoscopy and iliotibial iliotibial band lengthening as described by Elver Wellington at the [facility] for evaluation of the gluteal muscles for possible debridement versus repair. At this point time patient would like to proceed with operative intervention. Patient understands risks and benefits to include damage to nerves muscles arteries veins development DVT PE infection and continued hip pain. Reviewed the pre-operative plans with the patient. Risks and benefits of the procedure were fully explained, including but not limited to infection, neurovascular injury, continued pain, arthritis, stiffness, need for further surgery, re-injury, DVT, PE, general risks of anesthesia, and loss of limb or life. The patient understands all the risks and does wish to proceed with written consent. Coding Level of Care Code Off vis,est,level 4 Diagnoses Tendinopathy of right gluteal region M76.01 Hip pain, right M25.551 05/14/17 1524 <Electronically signed by Robert Zuñiga DO> Date Robert Zuñiga DO Cosigner Signature: Date (if applicable) CC: LOWER EXT JOINT ONLY Observed: 05/12/2017 Status: F Source: [place] (ROUTINE) 7:16 AM [facility] REPOSITORY [facility] Imaging Services [address] [place] [id number] Lower Ext Joint Only (Routine) MR#: [id number] Acct: [id number] Name: JIE FINNEGAN Rep #: [id number] : 1950 F 66 From: Earnest Muñoz MD PCP: Horacio Chand MD Status: REG CLI Study: Lower Ext Joint Only (Routine) Date of Exam: 05/12/17 Exam# [id number] Ordering Dr: Robert Zuñiga DO STUDY: MRI RIGHT HIP REASON FOR EXAM: Right hip pain since November. TECHNIQUE: Standardized fat and water weighted pulse sequences were obtained in all 3 orthogonal planes. COMPARISON: Radiographs 12/24/2016. FINDINGS: Normal hip joint without articular joint space narrowing. Normal acetabulum. There is a suspected small tear of the anterior aspect of the right superior labrum (inversion recovery coronal image 18). Normal femoral head. Normal femoral neck and intratrochanteric region. There is mild peritendinitis of the right gluteus minimus tendon (inversion recovery coronal image 15) without discrete tendon tear. Normal gluteus medius and iliopsoas tendons and distal insertions. There is no trochanteric, iliopsoas or iliopectineal bursitis. Normal superior and inferior pubic rami. Normal pubic symphysis. Normal ischial tuberosity. Normal origin of the hamstring tendons. Normal visualized iliac wing, sacroiliac joint, and sacral ala. Normal visualized soft tissue structures of the pelvis. MRI/Lower Ext Joint Only (Routine) IMPRESSION: Mild peritendinitis of the right gluteus minimus tendon without demonstrated gluteal tendon tear. Suspected small tear of the anterior aspect of the right superior labrum. Electronically Signed: Earnest Muñoz MD at 8:55 EST Tel , Service support , CC: Robert Zuñiga DO; Horacio Chand MD Piercing Artist: Signed ORTHOPEDIC VISIT Observed: 04/22/2017 Status: F Source: [place] REPORT 7:40 AM [facility] REPOSITORY [facility] [address] [place] [address] OFFICE VISIT Date of Service: 04/21/17 MR#: [id number] Acct: [id number] Name: JIE FINNEGAN Rep #: [id number] : 1950 Provider: Robert Zuñiga DO Age/Sex: 66/F Location[place] [facility] Status: Signed Intake Intake Visit Reasons: RIGHT HIP Is patient in pain?: Yes Pain scale (1-10): 4 Allergies No Known Allergies Allergy (Verified 04/21/17 10:09) Medications cholecalciferol (vitamin D3) 2,000 unit capsule 2,000 unit PO ONCE 03/10/17 [History Confirmed 04/21/17] sxbgwzz-rnmcxpxeql-IVO-caffeine 30 mg-50 mg-325 mg-40 mg capsule 1 cap PO Q6H PRN 03/10/17 [History Confirmed 04/21/17] fexofenadine 180 mg tablet 180 mg PO Q24H 03/10/17 [History Confirmed 04/21/17] hydroxychloroquine 200 mg tablet 200 mg PO QDAY 03/10/17 [History Confirmed 04/21/17] levothyroxine 125 mcg tablet PO 03/10/17 [History Confirmed 04/21/17] naproxen 500 mg tablet 500 mg PO Q12H 03/10/17 [History Confirmed 04/21/17] onabotulinumtoxinA 100 unit solution for injection 200 unit INTRAV ONCE 03/10/17 [History Confirmed 04/21/17] rizatriptan 10 mg tablet 10 mg PO ONCE 03/10/17 [History Confirmed 04/21/17] PFSH Medical History Hypothyroidism (Chronic) Migraines (Chronic) Rheumatoid arthritis (Chronic) Surgical History Bunion (Inactive) History of hysterectomy (Inactive) Family History Father Brain tumor Mother Breast cancer Alzheimer's dementia Grandmother Cancer Social History Smoking Status: Never smoker what type of physical activity do you participate in: walking frequency: daily HPI RIGHT HIP: Details: JIE FINNEGAN is a 66 year old F here today for right hip pain. She has been going to PT for two weeks, 3 times per week. She was given SI belt to wear but did not seem to help. She was also advised in PT they didn't feel it was helping with her hip. She complains of constant lateral, posterior hip pain. She denies radiation of pain. No tingling/numbness. She has been taking Naproxen for pain but doesn't seem to help much. She did receive injection on 03/10/17 but only helped for about 1 week. ROS Const Reports system reviewed and no additional complaints, except as docu Eyes Reports system reviewed and no additional complaints, except as docu ENT Reports system reviewed and no additional complaints, except as docu Card Reports system reviewed and no additional complaints, except as docu Resp Reports system reviewed and no additional complaints, except as docu GI Reports system reviewed and no additional complaints, except as docu Reports system reviewed and no additional complaints, except as docu Musc Reports joint pain Skin/Breast Reports system reviewed and no additional complaints, except as docu Neuro Yes system reviewed and no additional complaints, except as docu Psych Reports system reviewed and no additional complaints, except as docu Endo Reports system reviewed and no additional complaints, except as docu Kashmir/Lymph Reports system reviewed and no additional complaints, except as docu Aller/Immun Reports system reviewed and no additional complaints, except as docu Ortho Exam Right Hip Contralateral Normal: Yes Hip: present TTP Greater Troch flexion: 90 degrees extension: 25 degrees internal rotation @90 degree flexion: 30 degrees external rotation @90 degree extension: 40 degrees abduction: 45 degrees adduction: 20 degrees Impingement Test: 1 Labral Stress Test: 1 Greg test: 2 Homans Sign: No HIP: Patient remains tender to palpation across the right hip greater trochanter. She continues have pain with straight leg raise which is concerning for perhaps some intra-articular pathology consistent with a positive Stinchfield. Change otherwise since her last intact L1-S1 distributions. She has positive pulses. Abductor and abductor strength appears to be 4+/5 with active abduction abduction strength 5 out of 5. Patient is failed injection past Left Hip Hip: Absent eccymosis, soft tissue swelling, erythema or TTP Greater Troch Impingement Test: 1 Greg test: 1 Jelly's Signs: no Overreaction, Simulation (pelvic rotation or axial loading), Regional (non-dermatomal complaint), Superficial tenderness or Flip Test (sitting vs. supine SLR test) Homans Sign: No Assessment AND Plan Problems 1. Tendinopathy of right gluteal region M76.01 2. Hip pain, right M25.551 Plan Assessment: Right hip trochanteric bursitis and gluteal tendinopathy. Right hip pain. Plan: At this time the patient is failed conservative measures to include NSAIDs active modifications physical therapy and an injection. My recommendation at this point time patient undergo a hip MRI to evaluate for gluteal tendinopathy and/or tear. Patient has been informed that she does have a tear I will refer her up to the [facility] for evaluation for repair. At this point time I will base our surgical intervention on that MRI. Patient follow-up after MRI completed. Major issues return. Orders Orders: Coding Level of Care Code Off vis,est,level 3 Diagnoses Tendinopathy of right gluteal region M76.01 Hip pain, right M25.551 04/22/17 0740 <Electronically signed by Robert Zuñiga DO> Date Robert Zuñiga DO Cosigner Signature: Date (if applicable) CC: INITAL EVALUATION (1) Observed: 04/05/2017 Status: F Source: [place] - PT 2:16 PM [facility] REPOSITORY [facility] Physical [facility] [address] [place] [address]. [address] [place] [address] Fax REHABILITATION SERVICES INITIAL EVALUATION MR#: [id number] Acct: [id number] Name: JIE FINNEGAN Rep #: [id number] : 1950 66 From: Angie Mendenhall DPT Referring DrElia: Robert Zuñiga DO Status: REG RCR Insurance: [employer] SELF PAY INSURANCE Patient's Visit Information JIE FINNEGAN is a 66 year old F referred to Physical Therapy by Robert Zuñiga DO DR.MTODD with a diagnosis of Right Glut Tendonitis. Date of Evaluation: 04/05/17 Physical Therapist: Angie Mendenhall - Visit Plan Frequency: 2x /Week Duration: 3 Weeks Plan: Focus on glut strength - Subjective Subjective: Patient reports that she has had hip pain since November- she was performing the hip abduction machine and felt a pop in her hip and has had pain since. She has seen her PCP as well as ortho. She had PT prior for her back and hamstring which is better but the hip pain has not changed. Pain is located on the lateral aspect of the hip and radiates to the SI joint. Agg: walking, standing and laying on it Worst: 6/10 Best: 0/10 Eases: sitting. Describes pain as dull and achy. No N/T in toes or LE. No change or loss of dorian/bladder. Did have injection which helped for about 1 week but then it went back to being the same. wants her to do specific glut therapy for HEP and then possible MRI. Was very active but is now less secondary to pain. Has had x-rays which showed mild OA. PMHx: underactive thyroid, migraines Meds: see list - Objective Posture: FH, RS. Gait: no deviation noted. HR/TR: able. SLS: increased pelvic translation to the right when standing on right- increased pain. Stair: asc/desc 8 recip with 1 HR and poor control. ROM: WFL pain with ER of the hip. Strength:Ankle: 5/5, Knee: 5/5, Hip: 4/5 throughout pain with IR/ER. FABBER: positive, FADDIR: positive, Clams: increased pain. Palpation: tender from greater troch to the SI joint via gluts - Goals Goal 1:: Patient will be I with HEP and progression Goal Time Frame: 4-6 Weeks Goal 2:: Patient will report 0/10 pain for 1 week Goal Time Frame: 4-6 Weeks Goal 3:: Patient will demo 5/5 strength in LE Goal Time Frame: 4-6 Weeks Goal 4:: Patient will maintain proper posture t/o tx session to demo increased core s/s Goal Time Frame: 4-6 Weeks - Rehabilitation Potential Physical Therapy Diagnosis: Patient presents with hypmobility- she has decreased strength and muscular endurance leading to poor posture and increased pain Rehabilitation Potential: Fair - Anticipated Interventions Patient/Client Instruction: Educate patient on: Benefits of Fitness Program For the Purpose of:: To increase tolerance to activity/condition/position Therapeutic Exercise to Include: Strength training, Endurance training, Agility training, Body mechanics, Postural training, Flexibilty training, Gait and locomotor training, Passive ROM, Active ROM, Dynamic Lumbar Stabilization For the Purpose of:: To improve muscle performance and motor function TENS: Yes Cryotherapy (ice pack, ice massage): Yes Thermo therapy (hot pack): Yes Ultrasound (thermal/non thermal): Yes Thank you for the opportunity to evaluate your patient. For Medicare and Medicare HMO plans, please review the plan of care and approve it. It will need to be FAXED BACK to us at [phone] for Medicare purposes. Please let me know if there are questions or concerns regarding this plan of care. Physician Signature: Date: <Electronically signed by Angie Mendenhall DPT> 04/05/17 1416 CC: Robert Zuñiga DO; Horacio Chand MD ELR Signed For Medicare only, by signing this I certify the plan of care. Physicians Signature Date SCREENING MAMM (CAD), Observed: 03/16/2017 Status: F Source: [facility] 9:35 AM [facility] REPOSITORY [facility] Imaging Services [address] [place] [address] SCREENING MAMM (CAD), BILAT MR#: [id number] Acct: [id number] Name: JIE FINNEGAN Rep #: [id number] : 1950 F 66 From: Mark Bourgeois MD PCP: Horacio Chand MD Status: REG [facility] Study: SCREENING MAMM (CAD), BILAT Date of Exam: 03/16/17 Exam# [id number] Ordering Dr: Cecil Yu MD MAMMOGRAPHY - BILATERAL SCREENING REASON FOR EXAM: Female, 66 years old. Routine annual screening examination. PERTINENT HISTORY: Mother with breast cancer. TECHNIQUE: Digital bilateral breast mane (3D mammographic acquisition) in the CC and MLO projections. 2-D mediolateral oblique (MLO) and craniocaudad (CC) views of both breasts were obtained. CAD: Full Field Digital Mammography with Computer Added Detection was performed. COMPARISON: Comparison is made with prior study dated March 12, 2016 and March 11, 2015. FINDINGS: Breast Composition: There are scattered areas of fibroglandular density. There are no dominant masses or suspicious calcifications. Stable small bilateral axillary lymph nodes. No other significant abnormalities are identified. There has been no significant change since the prior study. HPBI/SCREENING MAMM (CAD), BILAT IMPRESSION: Stable bilateral screening mammogram. Yearly follow-up mammogram recommended. (A) ASSESSMENT CATEGORY: BIRADS Category 2: Benign. A letter regarding these results will be sent to the patient by the facility within 30 days. Approximately 10% of breast cancers are not detected by mammography. A normal mammogram should not delay biopsy of a clinically suspicious abnormality. [id number] Electronically Signed: Mark Bourgeois MD at 12:49 EST Tel [phone], Service support , CC: Cecil Yu MD; Horacio Chand MD Piercing Artist: Signed ALLERGIES ALLERGIES DATE TYPE / CODE NAME / CODE REACTION SEVERITY SOURCE 01/24/2018 Drug No Known Unknown [place] [facility] Allergy/4160 Allergies/F00 Hospital 99810(SNOMED [id number](RXNOR Repository CT) M) ENCOUNTERS ENCOUNTERS ADMIT/DISCHARGE ACCOUNT ADMITTING ENCOUNTER LOCATION SOURCE NUMBER CLASS 03/14/2018 [id number] Ambulatory [place] 5 [facility] ing:PT Repository 02/23/2018 [id number] Ambulatory [place] 3 [facility] ing:MFPLAB Repository 01/24/2018/ [id number] Ambulatory BMSBuilding:B [place] 6 [facility] Repository 12/31/2017 [id number] Ambulatory [place] 0 [facility] ing:MRI Repository 12/14/2017/ [id number] Ambulatory BMSBuilding:B [place] 8 7 [facility] Repository 12/09/2017 [id number] Ambulatory BMSBuilding:B [place] 7 [facility] Hospital Repository 10/26/2017/ [id number] Ambulatory BMSBuilding:B [place] 8 6 [facility] Hospital Repository 08/30/2017/ [id number] Ambulatory BMSBuilding:B [place] 8 [facility] Hospital Repository 08/25/2017 [id number] Ambulatory [place] 8 [facility] Hospital ing:MFPLAB Repository 08/04/2017/ [id number] Ambulatory [place] 3 [facility] Hospital ing:PT Repository 07/19/2017/ [id number] Ambulatory BMSBuilding:B [place] 8 5 [facility] Hospital Repository 06/16/2017/ [id number] Ambulatory BMSBuilding:B [place] 8 [facility] Hospital Repository 06/03/2017/ [id number] [place] [facility] ing[facility]SDC Repository 06/03/2017 [id number] Ambulatory BMSBuilding:B [place] 7 [facility] Hospital Repository 05/26/2017 [id number] Amb[place] 7 [facility] Hospital ing:MFPLAB Repository 05/14/2017/ [id number] Ambulatory BMSBuilding:B [place] 8 2 [facility] Hospital Repository 05/12/2017 [id number] Ambulatory [place] 2 [facility] Hospital ing:MRI Repository 04/21/2017/ [id number] Ambulatory BMSBuilding:B [place] 8 1 [facility] Hospital Repository 04/16/2017/ [id number] Ambulatory [place] 8 6 [facility] Repository 03/16/2017 [id number] Ambulatory [place] 1 [facility] Hospital ing:BI Repository PAYERS PAYERS ENCOUNTER GUARANTOR PAYER SUBSCRIBER SOURCE 03/14/2018 [place] [id number] Insurance:JANETT WOLOSCHYNDOB: [id number] Number: Repository [id number]: 330 [id number] [phone] () e Date:0401-02-44VY [address] [place] [address]LQ: 03/14/2018 Secondary NOT GIVENUNK [place] Insurance:SELF PAY [facility] Hospital Number: Effective Repository Date:2018-02-03 02/23/2018 ALEXIS Primary JIE L [place] [id number] Insurance:JANETT WOLOSCHYNDOB: [facility] [id number] Number: Repository [id number]: 330 [id number] [phone] () e Date:7862-44-97UO [address] [place] [address]HN: 02/23/2018 Secondary NOT GIVENUNK [place] Insurance:SELF PAY [facility] Number: Effective Repository Date:2018-02-23 01/24/2018 [facility] Primary [place]IE [place] [id number] Insurance:JANETT WOLOSCHYNDOB: [facility] [id number] Valley [facility] Hospital Number: Repository [id number]: 330 [id number] [phone] () e Date:7174-78-35VO [address] [place] [address]OM: 01/24/2018 Secondary NOT GIVENUNK [place] Insurance:SELF PAY [facility] Number: Effective Repository Date:2018-01-24 12/31/2017 ALEXIS Primary JIE L [place] [id number] Insurance:JANETT WOLOSCHYNDOB: [facility] [id number] Valley Community Hospital Number: Repository [id number]: 330 [id number] [phone] () e Date:4015-55-75WO [address] [address]FT: 12/31/2017 Secondary NOT GIVENUNK [place] Insurance:SELF PAY [facility]: Effective Repository Date:2017-12-30 12/14/2017 ALEXIS Primary JIE L [place] [id number] Insurance:JANETT WOLOSCHYNDOB: Community [facility] [facility] [id number] [facility]ol[facility] Number: Repository [id number]: 330 [id number] [phone] () e Date:6452-48-77ZD [address] [address]BO: 12/14/2017 Secondary NOT GIVENUNK [place] Insurance:SELF PAY [facility] Number: Effective Repository Date:2017-12-14 12/09/2017 [facility] Primary JIE L [place] [id number] Insurance:AULTCAREPol WOLOSCHYNDOB: Community [place] icy Number: [id number] [id number] Repository [address]Ipa: (330) Date:3933-14-64NR [phone] (HP) [address] [address]PZ: 12/09/2017 Secondary NOT GIVENUNK [place] Insurance:SELF PAY [facility] Number: Effective Repository Date:2017-09-08 10/26/2017 [facility] Primary JIE L [place] [id number] Insurance:AULTCAREPol WOLOSCHYNDOB: Community [place] icy Number: [id number] [place] [id number] Repository [address]Zlh: (330) Date:9434-29-05HW [phone] (HP) [address] [address]JH: 10/26/2017 Secondary NOT GIVENUNK [place] Insurance:SELF PAY [facility] Number: Effective Repository Date:2017-10-26 08/30/2017 ALEXIS Primary [place] [id number] Insurance:AULTCAREPol WOLOSCHYNDOB: Community [place] icy Number: [id number] [place] [id number] Repository [address]Bos: (330) Date:6834-02-25HK [phone] (HP) [address] [address]PU: 08/30/2017 Secondary NOT GIVENUNK [place] Insurance:SELF PAY [facility] Number: Effective Repository Date:2017-09-09 08/25/2017 [facility] Primary JIE L [place] [id number] Insurance:AULTCAREPol WOLOSCHYNDOB: Community [place] icy Number: [id number] [place] [id number] Repository [address]Nik: (330) Date:9729-32-39VI [phone] (HP) [address] [address]BU: 08/25/2017 Secondary NOT GIVENUNK [place] Insurance:SELF PAY [facility] Number: Effective Repository Date:2017-08-25 08/04/2017 [facility] Primary IJE L [place] [id number] Insurance:AULTCAREPol WOLOSCHYNDOB: Community [place] icy Number: [id number] [place] [id number] Repository [address]Oif: (330) Date:9519-64-19EH [phone] (HP) [address] [address]WU: 08/04/2017 Secondary NOT GIVENUNK [place] Insurance:SELF PAY [facility] Number: Effective Repository Date:2017-06-16 07/19/2017 ALEXIS Primary JIE L [place] [id number] Insurance:AULTCAREPol WOLOSCHYNDOB: Community [place] icy Number: [id number] [place] [id number] Repository [address]Qjc: (330) Date:1865-14-12DP [phone] (HP) [address] [address]XG: 07/19/2017 Secondary NOT GIVENUNK [place] Insurance:SELF PAY [facility] Number: Effective Repository Date:2017-07-19 06/16/2017 [facility] Primary JIE L [place] [id number] Insurance:AULTCAREPol WOLOSCHYNDOB: Community [place] icy Number: [id number] Station, [place] [id number] Repository [address]Jie: (330) Date:2894-55-12QV [phone] (HP) [address] [address]TL: 06/16/2017 Secondary NOT GIVENUNK [place] Insurance:SELF PAY [facility] Number: Effective Repository Date:2017-06-16 06/03/2017 [facility] JIE L [place] [id number] Insurance:AULTCAREPol WOLOSCHYNDOB: Community [place] icy Number: [id number] Station, [place] [id number] Repository [address]Rrx: (330) Date:9735-34-27RK [phone] () [address] [address]WZ: 06/03/2017 Secondary NOT GIVENUNK [place] Insurance:SELF PAY [facility] Number: Effective Repository Date:2017-05-19 06/03/2017 [facility] JIE L [place] [id number] Insurance:AULTCAREPol WOLOSCHYNDOB: Community [place] icy Number: [id number] Station, [place] [id number] Repository [address]Eja: (330) Date:9901-28-58QO [phone] () [address] [address]ZB: 06/03/2017 Secondary NOT GIVENUNK [place] Insurance:SELF PAY [facility] Number: Effective Repository Date:2017-06-03 05/26/2017 [facility] Primary JIE [place] [id number] Insurance:AULTCAREPol WOLOSCHYNDOB: Community [place] icy Number: [id number] Station, [place] [id number] Repository [address]Zjk: (330) Date:8332-40-51CN [phone] (HP) [address] [place] [address]OL: 05/26/2017 Secondary NOT GIVENUNK [place] Insurance:SELF PAY [facility] Number: Effective Repository Date:2017-05-26 05/14/[address] [facility] Primary JIE [place] [id number] Insurance:AULTCAREPol WOLOSCHYNDOB: Community [place] icy Number: [id number], [place] [id number] Repository [address]Cmn: (330) Date:0889-87-79YV [phone] (HP) [address] [place] [address]AX: 05/14/2017 Secondary NOT GIVENUNK [place] Insurance:SELF PAY [facility] Number: Effective Repository Date:2017-05-10 05/12/2017 [facility] JIE [place] [id number] Insurance:AULTCAREPol WOLOSCHYNDOB: Community [place] icy Number: [id number], [place] [id number] Repository [address]Tfv: (330) Date:4537-64-19CG [phone] (HP) [address] [address]UN: 05/12/2017 Secondary NOT GIVENUNK [place] Insurance:SELF PAY [facility] Number: Effective Repository Date:2017-05-10 04/21/[address] [facility] Primary JIE [place] [id number] Insurance:AULTCAREPol WOLOSCHYNDOB: Community [place] icy Number: [id number], [place] [id number] Repository [address]Lhq: (330) Date:3038-68-70GU [phone] (HP) [address] [address]NU: 04/21/2017 Secondary NOT GIVENUNK [place] Insurance:SELF PAY [facility] Number: Effective Repository Date:2017-04-20 04/16/2017 [facility] Primary JIE Barrient[place] [id number] Insurance:AULTCAREPol WOLOSCHYNDOB: Community [place] icy Number: [id number] [place], [place] [id number] Repository [address]Vpy: 330) Date:1367-91-87DM [phone] () [address] [address]RT: 04/16/2017 Secondary NOT GIVENUNK [place] Insurance:SELF PAY [facility] Number: Effective Repository Date:2017-04-01 03/16/2017 [facility] JIE Barrientos [id number] Insurance:AULTCAREPol WOLOSCHYNDOB: Community [place] Number: [id number], [place] [id number] Repository [address]Jao: 330) Date:9631-20-70AA [phone] () [address] [address]DM: 03/16/2017 Secondary NOT GIVENUNK [place] Insurance:SELF PAY [facility] Number: Effective Repository Date:2017-01-28
== END ==
PROVIDERS: Family Provider Family Medicine; PCP Family Medicine; Visit Provider Family Medicine
DX: E03.9 Hypothyroidism, unspecified (principal)
CPT/HCPCS: 36415; 84436; 84443; 84481

== ENCOUNTER 2018-03-16 10:30 | Outpatient (RCR) | payer MEDICARE, SELFPAY ==
--- NOTE | 2018-03-08 07:11 | HP.PTEVAL_ITS ---
Patient's Visit Information JIE FINNEGAN is a 67 year old F referred to Physical Therapy by Kathy Ny DO with a diagnosis of R hip bursitis. Date of Evaluation: 02/22/18 Physical Therapist: Kirill Eagle - Visit Plan Frequency: 2x /Week Duration: 4-6 Weeks Plan: Start with IT band stretching, piriformis stretching, glute med/max activationn. US to greater trochanteric bursa and DN to similar region. - Subjective Findings: Pt. is here today with diagnosis of R hip bursitis. Pt. is known to this PT as she was seen after her R bursectomy. Pt. reports never getting fully better after procedure and is now having increased symptoms while walking and with ADLs. Pt. reports pain at R lateral hip, and gluteal region. Pt. denies N/T in either LE. Pt. reports having mild pain at rest, but pain intensifies with walking. Pt. denies LBP and no distal LE weakness. Pt. is able to sleep wihtout issues, unless she rolls onto her side. Pt. reprots being able to complete most activitiaties, but has increased pain with them. Pt. has had injects with some mild relief, but came back with in a few weeks. Pt. did discuss surgery with patient, but opted for PT at this point in time. Pt. hopeful to reduce symptoms in order to get back to all recreational walking without issues. - Pain R lateral hip Pain Intensity (Out of 10): 3 Pain Intensity Range: 1, 6 - Objective POSTURE: Pt. has normal posture instance. Equal iliac crest heights. Pt. has slight flexed posture. PALPATION: Pt. has tenderness at posterior aspect of R greater trochanter, pain at piriformis muscle belly and TFL. NO distal IT band pain. NEURO: all normal, intact. No issues. ROM: LUMBAR SPINE: normal motion no increase in symptoms. R hip: flexion 120deg NE, ext 20deg NE, ER 60deg increase NW, IR 30 deg increase NW, + obers test for pain and tightness. MMT: LLE- 5/5 throughout except, hip- flexion 4+/5, abd 4/5, ext 4+/5. RLE- ankle/knee 5/5 throughout; hip- flexuon 4+/5 abd 4/5 increase NW, ext 4/5 icnrease NW. GAIT: pt. ambulates with slight antalgic pattern on R stance phase, slight contralateral hip drop. Normal step length bilat. STAIRS: Pt. is able to compelte with reciprical pattern, but does have marked R hip weakness with ascending and controlled eccentric lowering. - Special Tests R Hip Scour: Negative R Hip ANA - Intraarticular Pathology: Negative R Hip FADDIR - Labrum: Negative R Hip Wood - IT Band: Positive Comment: Pt. has pain with FADDIR and ANA, but posterior, not in joint. - Goals Goal 1:: Pt. to be I with HEP. Goal Time Frame: 4-6 Weeks Goal 2:: Pt. to have negative wood's test on R side. Goal Time Frame: 4-6 Weeks Goal 3:: Pt. to have increased R hip ROM in all effected ranges by 25% without increase in symptoms. Goal Time Frame: 4-6 Weeks Goal 4:: Pt. have increased R hip and core strength by 1/2 grade of all effected musculature. Goal Time Frame: 4-6 Weeks Goal 5:: Pt. to walk unlimited distances with 0-1/10 pain in R hip. - Rehabilitation Potential Physical Therapy Diagnosis: Pt. has signs and symptoms consistent with R hip bursitis. Pt. has hypomobility throughout hip IR/ER/ADD and weakness of glute med, glute max, hamstring, and hip ER. Pt. would benefit from PT to address above limitations and progress back to recreational walking without issues. Rehabilitation Potential: Good - Anticipated Interventions Patient/Client Instruction: Educate patient on: Condition, Plan of Care, Risk F actors, Benefits of Fitness Program For the Purpose of:: To foster healthy habits, To improve decision making, To facilitate caregiver knowledge, To improve self management, To prevent re- injury, To improve ability to perform tasks related to life management, To improve tolerance to ADL's Therapeutic Exercise to Include: Strength training, Power training, Endurance training, Postural training, Flexibilty training, Passive ROM, Active ROM, Dynamic Lumbar Stabilization For the Purpose of:: To decrease pain, To increase ROM, To improve nutrient delivery to tissue, To increase oxygenation perfusion, To improve muscle performance and motor function, To improve performance and independence with ADL's, To improve gait and locomotor functions, To improve health of tissue, To decrease soft tissue restriction, To increase flexibility/ROM Manual Therapy Techniques to Include: Functional dry needling, Soft tissue mobilization For the Purpose of:: To decrease pain, To increase ROM, To improve nutrient delivery to tissue, To increase oxygenation perfusion IF ES: Yes Cryotherapy (ice pack, ice massage): Yes Thermo therapy (hot pack): Yes Ultrasound (thermal/non thermal): Yes For the Purpose of:: To decrease pain, To increase ROM Thank you for the opportunity to evaluate your patient. For Medicare and Medicare HMO plans, please review the plan of care and approve it. It will need to be FAXED BACK to us at [phone] for Medicare purposes. For Medicare only, by signing this I certify the plan of care. Please let me know if there are questions or concerns regarding this plan of care. Physician Signature: Date:
--- NOTE | 2018-05-30 09:57 | HP.PTDCSUM ---
HP - PT D/C Summary It has been my pleasure to treat JIE FINNEGAN under orders from Kathy Ny DO, for the diagnosis of R hip bursitis for a total of 8 visit(s). Discharge Date: 03/16/18 Please see the following information for a summary of their discharge status. - Subjective Subjective: Pt. reports I am doing pretty good today. Pt.reports having 1/10 pain in R hip pre treatment. She reports being 80% better overall as she still gets some pain with increased walking. - Pain R lateral hip Pain Intensity (Out of 10): 1 - Overall Improvement % Improvement: 80 - Objective Objective/Function: pt. reports minimal pain post PT. Pt. has improved by 80% with her pain and mobility. Pt. has increased glute med strength by 1/2 grade and incrased TFL length. Pt. is independent with her HEP and reports no pain with attempts. Pt. will be DC from PT at this point intime. - Goals Goal 1:: Pt. to be I with HEP. Goal Progress: Goal Met Goal 2:: Pt. to have negative wood's test on R side. Goal Progress: Goal Met Goal 3:: Pt. to have increased R hip ROM in all effected ranges by 25% without increase in symptoms. Goal Progress: Goal Met Goal 4:: Pt. have increased R hip and core strength by 1/2 grade of all effected musculature. Goal Progress: Goal Met Goal 5:: Pt. to walk unlimited distances with 0-1/10 pain in R hip. Goal Progress: Progressing - Plan Plan: Pt. to be DC this date. - D/C Information Discharge Comments: Pt. made good progress with PT. PT. was treated with US, stretching and strengthening. She had overall decreased pain. Pt. is currently independent with HEP and will be DC from PT at this point intime. If there are questions or concerns regarding this patient's physical therapy, please feel free to call me at [phone]. Thank you for the referral of this patient. Sincerely, Kirill Eagle DPT
== END 2018-03-16 19:00 | disposition home or self-care (01) ==
LOC: PT 10:30
PROVIDERS: Family Provider Family Medicine; PCP Family Medicine; Referring Provider Orthopaedic Surgery; Visit Provider Orthopaedic Surgery
DX: M70.62 Trochanteric bursitis, left hip (principal); M70.61 Trochanteric bursitis, right hip; Z98.890 Other specified postprocedural states
CPT/HCPCS: 97035; 97110; 97140; 97161

== ENCOUNTER → 2018-03-25 12:07 | Outpatient (CLI) | payer MEDICARE, SELFPAY ==
--- NOTE | 2018-03-25 12:09 | BI_ITS ---
MAMMOGRAPHY - BILATERAL SCREENING 3-D JOY SYNTHESIS REASON FOR EXAM: Female, 67 years old. Bilateral Screening 3-D tomosynthesis PERTINENT HISTORY: Family history of breast cancer in mother in her eighth decade.. TECHNIQUE: 2-D mammograms and 3-D Joy synthesis of the breast (s) were performed. CAD was performed. COMPARISON: March 16, 2017, March 12, 2016 FINDINGS: The breast composition is almost entirely fat. There are stable lymph nodes in both axillae. Scattered benign calcifications are seen. No dense spiculated masses or suspicious microcalcifications are identified. No architectural distortion is identified. There is no skin thickening or retraction. There has been no significant change since the prior study. BI/SCREENING MAMM (CAD), BILAT IMPRESSION: No mammographic signs of malignancy. Routine yearly mammograms recommended. ASSESSMENT CATEGORY: BIRADS Category 2: Benign. A letter regarding these results will be sent to the patient by the facility within 30 days. FOLLOW UP RECOMMENDATION: Yearly follow up mammogram recommended. (A) Approximately 10% of breast cancers are not detected by mammography. A normal mammogram should not delay biopsy of a clinically suspicious abnormality. Electronically Signed: Abhishek Nolan MD at 11:13 EST , Service support ,
== END ==
PROVIDERS: Family Provider Family Medicine; PCP Family Medicine; Visit Provider Obstetrics & Gynecology
DX: Z12.31 Encounter for screening mammogram for malignant neoplasm of breast (principal)
CPT/HCPCS: 77063; 77067

== ENCOUNTER → 2018-12-24 09:36 | Outpatient (CLI) | payer MEDICARE, SELFPAY ==
[2018-12-24 11:22] LABS: Anion Gap 7 (5-15); BUN 15 mg/dL (7-18); BUN/Creat Ratio 14.9 RATIO (10-20); Calcium,Total 8.8 mg/dL (8.5-10.1); Chloride 107 mmol/L (98-107); Cholesterol 221 mg/dL (200); Creatinine, Serum 1.01 mg/dL (0.55-1.02); EST Glomerular Filtration Rate 58 mL/min (>60); Est Glom Filt Rate - Afr Amer 71 mL/min (>60); Free T3 2.6 pg/mL (2.18-3.98); Glucose 94 mg/dL (74-106); High Density Lipoprotein 70 mg/dL; Potassium 4.2 mmol/L (3.5-5.1); Sodium Level 144 mmol/L (136-145); T4 Total, Thyroxin 11.4 ug/dL (4.8-13.9); Thyroid Stim Hormone (TSH) 1.06 uIU/mL (0.358-3.74); Triglycerides 193 mg/dL; Very Low Density Lipoprotein 39 mg/dL (5-40)
[2018-12-26 09:00] LABS: Vitamin D,25 Hydroxy 26.5 ng/mL (29.95-100.01)
== END ==
PROVIDERS: Family Provider Family Medicine; PCP Family Medicine; Referring Provider Family Medicine; Visit Provider Family Medicine
DX: Z00.00 Encounter for general adult medical examination without abnormal findings (principal); E03.9 Hypothyroidism, unspecified; E55.9 Vitamin D deficiency, unspecified
CPT/HCPCS: 36415; 80048; 80061; 82306; 84436; 84443; 84481

== ENCOUNTER → 2019-03-27 11:44 | Outpatient (CLI) | payer MEDICARE, SELFPAY ==
--- NOTE | 2019-03-27 11:46 | BI_ITS ---
MAMMOGRAPHY - BILATERAL SCREENING 3-D TOMOSYNTHESIS REASON FOR EXAM: Female, 68 years old. hx of mother at age 70''s -- no sx lt mole marked PERTINENT HISTORY: No significant family history. TECHNIQUE: 2-D mammograms and 3-D Tomosynthesis of the breast (s) were performed. CAD was performed. COMPARISON: March 25, 2018. FINDINGS: The breast composition is composed of scattered fibroglandular density. Scattered benign calcifications are seen. No dense spiculated masses or suspicious microcalcifications are identified. No architectural distortion is identified. There is no skin thickening or retraction. There has been no significant change since the prior study. BI/SCREEN MAMM (CAD) W/JOY BILAT IMPRESSION: No mammographic signs of malignancy. Routine yearly mammograms recommended. ASSESSMENT CATEGORY: BIRADS Category 2: Benign. A letter regarding these results will be sent to the patient by the facility within 30 days. FOLLOW UP RECOMMENDATION: Yearly follow up mammogram recommended. (A) Approximately 10% of breast cancers are not detected by mammography. A normal mammogram should not delay biopsy of a clinically suspicious abnormality. Electronically Signed: Harpreet Olson MD at 13:27 EST , Service support ,
== END ==
PROVIDERS: Family Provider Family Medicine; PCP Family Medicine; Referring Provider Obstetrics & Gynecology; Visit Provider Obstetrics & Gynecology
DX: Z12.31 Encounter for screening mammogram for malignant neoplasm of breast (principal)
CPT/HCPCS: 77063; 77067

== ENCOUNTER → 2019-05-18 20:06 | Outpatient (CLI) | payer MEDICARE, SELFPAY | PROVIDERS: PCP Family Medicine; Referring Provider Nurse Practitioner Family; Visit Provider Nurse Practitioner Family | DX: G47.33 Obstructive sleep apnea (adult) (pediatric) (principal) | CPT/HCPCS: 95811 ==

== ENCOUNTER → 2019-06-13 10:37 | Outpatient (CLI) | payer MEDICARE, SELFPAY ==
[2019-06-13 13:02] LABS: Cholesterol 211 mg/dL (200); High Density Lipoprotein 67 mg/dL; Thyroid Stim Hormone (TSH) 1.48 uIU/mL (0.358-3.74); Triglycerides 154 mg/dL; Very Low Density Lipoprotein 31 mg/dL (5-40)
== END ==
PROVIDERS: PCP Family Medicine; Referring Provider Family Medicine; Visit Provider Family Medicine
DX: Z00.00 Encounter for general adult medical examination without abnormal findings (principal); E03.9 Hypothyroidism, unspecified; E55.9 Vitamin D deficiency, unspecified
CPT/HCPCS: 36415; 80061; 82306; 84443

== ENCOUNTER → 2019-08-03 12:51 | Outpatient (CLI) | payer MEDICARE, SELFPAY ==
--- NOTE | 2019-08-03 12:57 | BD_ITS ---
STUDY: DUAL ENERGY X-RAY ABSORPTIOMETRY / DXA REASON FOR EXAM: Female, 68 years old. 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 COMPARISON: None. FINDINGS: Lumbar Spine (L1-L4): g/cm2 (1.030) / T-score (-1.1) / Z-score (0.5) Findings are suggestive of osteopenia with a low fracture risk. Left Femur Total: g/cm2 (0.856) / T-score (-1.2) / Z-score (0.1) Left Femoral Neck: g/cm2 (0.837) / T-score (-1.4) / Z-score (0.1) BD/Dexa Bone Density Study IMPRESSION: The patient is considered osteopenic as outlined below according to World Deric Organization (WHO) criteria with a low fracture risk. Reference Information: The T-score is the number of standard deviations above or below the standard which is normal for young adults at their peak bone mineral density. The World Health Organization (WHO) interprets the T-scores as follows: Above -1 Normal bone density Between -1 and -2.5 Osteopenia Equal to / or below -2.5 Osteoporosis As a practical clinical guideline, osteopenia may be graded as follows: Mild -1 through -1.5 Moderate -1.6 through -2.0 Severe -2.1 through -2.4 The Z-score is the number of standard deviations above or below age-matched controls. A Z-score of less than -1.5 would be considered abnormal. References: 1. NIH Osteoporosis and Related Bone Diseases http://www.osteo.org 2. International Society for Clinical Densitometry http://www.iscd.org 3. National Osteoporosis Foundation http://www.nof.org Electronically Signed: Mark Bourgeois, at 13:28 EDT , Service support ,
== END ==
PROVIDERS: PCP Family Medicine; Referring Provider Family Medicine; Visit Provider Family Medicine
DX: Z00.00 Encounter for general adult medical examination without abnormal findings (principal); N95.9 Unspecified menopausal and perimenopausal disorder
CPT/HCPCS: 77080

== ENCOUNTER → 2019-09-08 13:49 | Outpatient (CLI) | payer MEDICARE, SELFPAY ==
--- NOTE | 2019-09-08 13:58 | RAD_ITS ---
STUDY: X-RAY - THORACIC SPINE REASON FOR EXAM: Female, 68 years old. BACK PAIN, THROUGHOUT SPINE TECHNIQUE: 2 view(s) of the thoracic spine were obtained. COMPARISON: None. FINDINGS: Normal kyphosis of the thoracic spine. There is no substantial scoliosis. There is multilevel endplate spondylosis of the thoracic vertebrae. There is multilevel disc space narrowing of the thoracic spine. The soft tissue structures are unremarkable. RAD/Thoracic Spine 3 Views IMPRESSION: Mild degenerative changes Electronically Signed: Nayeli Patton MD at 13:41 EDT Tel , Service support ,
--- NOTE | 2019-09-08 13:58 | RAD_ITS ---
STUDY: X-RAY - CERVICAL SPINE REASON FOR EXAM: Female, 68 years old. BACK PAIN, THROUGHOUT SPINE TECHNIQUE: 3 view(s) of the cervical spine were obtained. COMPARISON: June 12, 2016 MRI cervical spine FINDINGS: Normal cervical lordosis. There is multi-level endplate spondylosis. There is multi-level degenerative disc disease with multilevel disc space narrowing. The soft tissue structures are unremarkable. RAD/Cerv Spine 2 or 3 Views IMPRESSION: Degenerative changes of the spine. Electronically Signed: Nayeli Patton MD at 9:31 EDT Tel , Service support ,
--- NOTE | 2019-09-08 13:58 | RAD_ITS ---
STUDY: X-RAY - LUMBAR SPINE REASON FOR EXAM: Female, 68 years old. BACK PAIN, THROUGHOUT SPINE TECHNIQUE: 2 view(s) of the lumbar spine were obtained. COMPARISON: June 03, 2016 FINDINGS: Normal lumbar lordosis. There is multilevel endplate spondylosis of the lumbar vertebrae. There is multi-level degenerative disc disease with multi-level disc space narrowing. The soft tissue structures are unremarkable. RAD/Lumbar Spine 2 or 3 Views IMPRESSION: Mild degenerative changes of the spine. Electronically Signed: Nayeli Patton MD at 13:41 EDT Tel , Service support ,
== END ==
PROVIDERS: PCP Family Medicine; Referring Provider Family Medicine; Visit Provider Family Medicine
DX: M54.9 Dorsalgia, unspecified (principal)
CPT/HCPCS: 72040; 72072; 72100

== ENCOUNTER → 2019-12-13 14:41 | Outpatient (CLI) | payer MEDICARE, SELFPAY ==
[2019-12-13 18:29] LABS: Free T3 2.3 pg/mL (2.18-3.98); T4 Total, Thyroxin 10.8 ug/dL (4.8-13.9); Thyroid Stim Hormone (TSH) 0.88 uIU/mL (0.358-3.74)
== END ==
PROVIDERS: PCP Family Medicine; Referring Provider Family Medicine; Visit Provider Family Medicine
DX: E03.9 Hypothyroidism, unspecified (principal)
CPT/HCPCS: 36415; 84436; 84443; 84481

== ENCOUNTER → 2020-01-12 14:23 | Outpatient (CLI) | payer MEDICARE, SELFPAY ==
--- NOTE | 2020-01-12 14:26 | RAD_ITS ---
STUDY: X-RAY - PELVIS REASON FOR EXAM: Female, 69 years old. inflammatory polyarthropathy TECHNIQUE: One view of the pelvis was obtained. COMPARISON: 12/24/2016 FINDINGS: There is a non-specific bowel gas pattern. Normal visualized soft tissue structures. Normal bilateral iliac wings, sacroiliac joints and visualized sacrum. Normal visualized bilateral superior and inferior pubic rami. Normal pubic symphysis. Normal ischial tuberosities. Normal visualized right femoral head. Normal right acetabulum. Normal right hip joint. Normal visualized left femoral head. Normal left acetabulum. Normal left hip joint. RAD/Pelvis 1 or 2 Views IMPRESSION: Normal x-ray examination of the pelvis. Electronically Signed: Ken Falk MD at 7:25 EDT Tel , Service support ,
[2020-01-12 17:42] LABS: Absolute Lymphocyte Count 1.71 X10^3/uL (0.83-4.51); Absolute Neutrophil Count 4.1 X10^3/uL (2.0-7.7); Basophil# 0.05 X10^3/uL; Basophil% 0.8 % (0-1); Eosinophil# 0.18 X10^3/uL; Eosinophils% 2.8 % (0-5); Hematocrit 45.1 % (37-47); Lymphocyte # 1.71 X10^3/ul (4.0); Lymphocyte % 26.3 % (19-41); Mean Corpuscular Hgb 29.5 pg (27.0-32.0); Mean Corpuscular Volume 95.1 fL (81-99); Monocyte# 0.47 X10^3/uL; Monocyte% 7.2 % (0-10); NRBC Flagged by Analyzer 0 % (0-5); Neutrophil # 4.08 X10^3/uL (2.7-7.7); Neutrophil % 62.7 % (47-70); Platelet Count 287 K/mm3 (150-450); RBC Distribution Width CV 13.2 % (11.6-14.6); RBC Distribution Width SD 46.5 fl (35.1-43.9); Red Blood Count 4.74 M/mm3 (4.2-5.4); White Blood Count 6.5 K/mm3 (4.4-11.0)
[2020-01-12 17:59] LABS: ALB/GLOB Ratio 1.2 RATIO (0.9-2.4); AST(SGOT) 22 U/L (15-37); Alanine Aminotransfer ALT/SGPT 26 U/L (13-56); Albumin, Serum 4.1 g/dL (3.2-5.0); Alkaline Phosphatase 83 U/L (45-117); Anion Gap 7 (5-15); BUN 18 mg/dL (7-18); BUN/Creat Ratio 18.1 RATIO (10-20); CRP < 2.90 mg/L (0.0-3.0); Calcium,Total 8.6 mg/dL (8.5-10.1); Chloride 105 mmol/L (98-107); EST Glomerular Filtration Rate 59 mL/min (>60); Est Glom Filt Rate - Afr Amer 72 mL/min (>60); Globulin 3.5 g/dL (2.2-4.2); Glucose 77 mg/dL (74-106); Potassium 3.7 mmol/L (3.5-5.1); Protein, Total 7.6 g/dL (6.4-8.2); Rheumatoid Factor < 10.0 IU/mL (<15); Sodium Level 141 mmol/L (136-145)
[2020-01-12 18:00] LABS: Erythrocyte Sedimentation Rate 2 mm/hr (0-30)
[2020-01-13 10:13] LABS: Hepatitis B Surface Antibody Reactive; Hepatitis B Surface Antigen Non-Reactive (Nonreactive); Hepatitis C Antibody Non-Reactive (Nonreactive)
[2020-01-15 14:26] LABS: ANTINUCLEAR ANTIBODIES DIRECT Negative (Negative)
[2020-01-17 12:25] LABS: CCP IgG Antibodies > 250 units (0-19); Hepatitis B Core AB IgM Negative (Negative)
== END ==
PROVIDERS: PCP Family Medicine; Referring Provider Internal Medicine Rheumatology; Visit Provider Internal Medicine Rheumatology
DX: M06.4 Inflammatory polyarthropathy (principal); Z79.899 Other long term (current) drug therapy; M79.7 Fibromyalgia; E03.9 Hypothyroidism, unspecified; G43.909 Migraine, unspecified, not intractable, without status migrainosus; G47.33 Obstructive sleep apnea (adult) (pediatric)
CPT/HCPCS: 36415; 72170; 80053; 85025; 85652; 86038; 86140; 86200; 86431; 86705; 86706; 86803; 87340

== ENCOUNTER → 2020-02-19 10:59 | Outpatient (CLI) | payer MEDICARE, SELFPAY ==
[2020-02-19 13:00] LABS: Absolute Lymphocyte Count 1.38 X10^3/uL (0.83-4.51); Absolute Neutrophil Count 2.5 X10^3/uL (2.0-7.7); Basophil# 0.04 X10^3/uL; Basophil% 0.9 % (0-1); Eosinophil# 0.16 X10^3/uL; Eosinophils% 3.6 % (0-5); Hematocrit 40.5 % (37-47); Hemoglobin 13.1 g/dL (12.0-15.0); Lymphocyte # 1.38 X10^3/ul (4.0); Lymphocyte % 31.4 % (19-41); Mean Corp Hgb Conc 32.3 g/dL (32-36); Mean Corpuscular Hgb 30.4 pg (27.0-32.0); Mean Platelet Vol. 10.9 fl (6.2-12.0); Monocyte# 0.33 X10^3/uL; Monocyte% 7.5 % (0-10); NRBC Flagged by Analyzer 0 % (0-5); Neutrophil # 2.47 X10^3/uL (2.7-7.7); Neutrophil % 56.1 % (47-70); Platelet Count 261 K/mm3 (150-450); RBC Distribution Width CV 12.7 % (11.6-14.6); RBC Distribution Width SD 43.6 fl (35.1-43.9); Red Blood Count 4.31 M/mm3 (4.2-5.4); White Blood Count 4.4 K/mm3 (4.4-11.0)
[2020-02-19 13:49] LABS: AST(SGOT) 19 U/L (15-37); Alanine Aminotransfer ALT/SGPT 29 U/L (13-56); Albumin, Serum 3.4 g/dL (3.2-5.0); Alkaline Phosphatase 80 U/L (45-117); Anion Gap 6 (5-15); BUN 14 mg/dL (7-18); BUN/Creat Ratio 14.5 RATIO (10-20); Calcium,Total 8.6 mg/dL (8.5-10.1); Chloride 108 mmol/L (98-107); Creatinine, Serum 0.97 mg/dL (0.55-1.02); EST Glomerular Filtration Rate 61 mL/min (>60); Est Glom Filt Rate - Afr Amer 74 mL/min (>60); Globulin 3.3 g/dL (2.2-4.2); Glucose 82 mg/dL (74-106); Potassium 3.5 mmol/L (3.5-5.1); Protein, Total 6.7 g/dL (6.4-8.2); Sodium Level 143 mmol/L (136-145)
== END ==
PROVIDERS: PCP Family Medicine; Referring Provider Internal Medicine Rheumatology; Visit Provider Internal Medicine Rheumatology
DX: M06.09 Rheumatoid arthritis without rheumatoid factor, multiple sites (principal); Z79.899 Other long term (current) drug therapy; M79.7 Fibromyalgia; E03.9 Hypothyroidism, unspecified; G43.909 Migraine, unspecified, not intractable, without status migrainosus; G47.33 Obstructive sleep apnea (adult) (pediatric)
CPT/HCPCS: 36415; 80053; 85025

== ENCOUNTER → 2020-04-08 12:32 | Outpatient (CLI) | payer MEDICARE, SELFPAY ==
--- NOTE | 2020-04-08 12:35 | BI_ITS ---
MAMMOGRAPHY - BILATERAL SCREENING REASON FOR EXAM: Female, 69 years old. Routine annual screening examination. PERTINENT HISTORY: Mother with breast cancer. TECHNIQUE: Digital bilateral breast joy (3D mammographic acquisition) in the CC and MLO projections. 2-D mediolateral oblique (MLO) and craniocaudad (CC) views of both breasts were obtained. CAD: Full Field Digital Mammography with Computer Added Detection was performed. COMPARISON: Comparison is made with prior examination dated 03/27/2019 and 03/25/2018. FINDINGS: Breast Composition: There are scattered areas of fibroglandular density. There are no dominant masses or suspicious calcifications. Stable small benign appearing bilateral axillary lymph nodes. No other significant abnormalities are identified. There has been no significant change since the prior study. BI/SCREEN MAMM (CAD) W/JOY BILAT IMPRESSION: Stable bilateral screening mammogram. Yearly follow-up mammogram recommended. (A) ASSESSMENT CATEGORY: BIRADS Category 1: Negative. A letter regarding these results will be sent to the patient by the facility within 30 days. Approximately 10% of breast cancers are not detected by mammography. A normal mammogram should not delay biopsy of a clinically suspicious abnormality. [id number] Electronically Signed: Mark Bourgeois, at 14:14 EST , Service support ,
== END ==
PROVIDERS: PCP Family Medicine; Referring Provider Obstetrics & Gynecology; Visit Provider Obstetrics & Gynecology
DX: Z12.31 Encounter for screening mammogram for malignant neoplasm of breast (principal)
CPT/HCPCS: 77063; 77067

== ENCOUNTER → 2020-04-26 11:26 | Outpatient (CLI) | payer MEDICARE, SELFPAY ==
[2020-04-26 15:33] LABS: ALB/GLOB Ratio 1.1 RATIO (0.9-2.4); AST(SGOT) 25 U/L (15-37); Alanine Aminotransfer ALT/SGPT 30 U/L (13-56); Albumin, Serum 3.5 g/dL (3.2-5.0); Alkaline Phosphatase 92 U/L (45-117); Anion Gap 7 (5-15); BUN 17 mg/dL (7-18); BUN/Creat Ratio 17.3 RATIO (10-20); Calcium,Total 8.8 mg/dL (8.5-10.1); Chloride 106 mmol/L (98-107); Creatinine, Serum 0.98 mg/dL (0.55-1.02); EST Glomerular Filtration Rate 60 mL/min (>60); Est Glom Filt Rate - Afr Amer 73 mL/min (>60); Globulin 3.2 g/dL (2.2-4.2); Glucose 82 mg/dL (74-106); Potassium 3.6 mmol/L (3.5-5.1); Protein, Total 6.7 g/dL (6.4-8.2); Sodium Level 143 mmol/L (136-145)
[2020-04-26 15:44] LABS: Absolute Lymphocyte Count 1.35 X10^3/uL (0.83-4.51); Absolute Neutrophil Count 2.9 X10^3/uL (2.0-7.7); Basophil# 0.04 X10^3/uL; Basophil% 0.8 % (0-1); Eosinophil# 0.11 X10^3/uL; Eosinophils% 2.3 % (0-5); Hematocrit 39.6 % (37-47); Hemoglobin 12.4 g/dL (12.0-15.0); Lymphocyte # 1.35 X10^3/ul (4.0); Lymphocyte % 27.8 % (19-41); Mean Corp Hgb Conc 31.3 g/dL (32-36); Mean Corpuscular Hgb 29.6 pg (27.0-32.0); Mean Corpuscular Volume 94.5 fL (81-99); Monocyte# 0.44 X10^3/uL; Monocyte% 9.1 % (0-10); NRBC Flagged by Analyzer 0 % (0-5); Neutrophil % 59.8 % (47-70); Platelet Count 264 K/mm3 (150-450); RBC Distribution Width SD 47.9 fl (35.1-43.9); Red Blood Count 4.19 M/mm3 (4.2-5.4); White Blood Count 4.9 K/mm3 (4.4-11.0)
== END ==
PROVIDERS: PCP Family Medicine; Referring Provider Internal Medicine Rheumatology; Visit Provider Internal Medicine Rheumatology
DX: M06.09 Rheumatoid arthritis without rheumatoid factor, multiple sites (principal); Z79.899 Other long term (current) drug therapy; M79.7 Fibromyalgia; E03.9 Hypothyroidism, unspecified; G43.909 Migraine, unspecified, not intractable, without status migrainosus; G47.33 Obstructive sleep apnea (adult) (pediatric)
CPT/HCPCS: 36415; 80053; 85025

== ENCOUNTER → 2020-06-14 11:06 | Outpatient (CLI) | payer MEDICARE, SELFPAY ==
[2020-06-14 13:10] LABS: Cholesterol 234 mg/dL (200); Free T3 2.3 pg/mL (2.18-3.98); High Density Lipoprotein 69 mg/dL; T4 Total, Thyroxin 10.8 ug/dL (4.8-13.9); Thyroid Stim Hormone (TSH) 0.65 uIU/mL (0.358-3.74); Triglycerides 174 mg/dL; Very Low Density Lipoprotein 35 mg/dL (5-40)
== END ==
PROVIDERS: PCP Family Medicine; Referring Provider Family Medicine; Visit Provider Family Medicine
DX: Z00.00 Encounter for general adult medical examination without abnormal findings (principal); E03.9 Hypothyroidism, unspecified
CPT/HCPCS: 36415; 80061; 84436; 84443; 84481

== ENCOUNTER → 2020-07-26 12:08 | Outpatient (CLI) | payer MEDICARE, SELFPAY ==
[2020-07-26 15:27] LABS: Absolute Lymphocyte Count 1.35 X10^3/uL (0.83-4.51); Absolute Neutrophil Count 3.4 X10^3/uL (2.0-7.7); Basophil# 0.04 X10^3/uL; Basophil% 0.8 % (0-1); Eosinophil# 0.11 X10^3/uL; Eosinophils% 2.1 % (0-5); Hematocrit 45.1 % (37-47); Hemoglobin 14.2 g/dL (12.0-15.0); Lymphocyte # 1.35 X10^3/ul (0.83-4.51); Lymphocyte % 25.8 % (19-41); Mean Corp Hgb Conc 31.5 g/dL (32-36); Mean Corpuscular Hgb 30.1 pg (27.0-32.0); Mean Corpuscular Volume 95.6 fL (81-99); Mean Platelet Vol. 10.7 fl (6.2-12.0); Monocyte# 0.34 X10^3/uL; Monocyte% 6.5 % (0-10); NRBC Flagged by Analyzer 0 % (0-5); Neutrophil # 3.39 X10^3/uL (2.7-7.7); Neutrophil % 64.6 % (47-70); Platelet Count 286 K/mm3 (150-450); RBC Distribution Width CV 13.2 % (11.6-14.6); RBC Distribution Width SD 46.6 fl (35.1-43.9); Red Blood Count 4.72 M/mm3 (4.2-5.4); White Blood Count 5.2 K/mm3 (4.4-11.0)
[2020-07-26 15:37] LABS: ALB/GLOB Ratio 1.1 RATIO (0.9-2.4); AST(SGOT) 26 U/L (15-37); Alanine Aminotransfer ALT/SGPT 43 U/L (13-56); Albumin, Serum 3.9 g/dL (3.2-5.0); Alkaline Phosphatase 97 U/L (45-117); Anion Gap 3 (5-15); BUN 19 mg/dL (7-18); BUN/Creat Ratio 18.6 RATIO (10-20); Calcium,Total 8.9 mg/dL (8.5-10.1); Chloride 103 mmol/L (98-107); Creatinine, Serum 1.02 mg/dL (0.55-1.02); EST Glomerular Filtration Rate 57 mL/min (>60); Est Glom Filt Rate - Afr Amer 69 mL/min (>60); Globulin 3.4 g/dL (2.2-4.2); Glucose 107 mg/dL (74-106); Potassium 3.9 mmol/L (3.5-5.1); Protein, Total 7.3 g/dL (6.4-8.2); Sodium Level 138 mmol/L (136-145)
== END ==
PROVIDERS: PCP Family Medicine; Referring Provider Internal Medicine Rheumatology; Visit Provider Internal Medicine Rheumatology
DX: M06.09 Rheumatoid arthritis without rheumatoid factor, multiple sites (principal); Z79.899 Other long term (current) drug therapy; M79.7 Fibromyalgia; M65.312 Trigger thumb, left thumb; E03.9 Hypothyroidism, unspecified; G43.909 Migraine, unspecified, not intractable, without status migrainosus; G47.33 Obstructive sleep apnea (adult) (pediatric)
CPT/HCPCS: 36415; 80053; 85025

== ENCOUNTER → 2020-10-28 13:06 | Outpatient (CLI) | payer MEDICARE, SELFPAY ==
[2020-10-28 15:03] LABS: Absolute Lymphocyte Count 1.33 X10^3/uL (0.83-4.51); Basophil# 0.05 X10^3/uL; Eosinophil# 0.12 X10^3/uL; Eosinophils% 2.5 % (0-5); Hematocrit 42.3 % (37-47); Hemoglobin 13.7 g/dL (12.0-15.0); Lymphocyte # 1.33 X10^3/ul (0.83-4.51); Lymphocyte % 27.2 % (19-41); Mean Corp Hgb Conc 32.4 g/dL (32-36); Mean Corpuscular Hgb 30.6 pg (27.0-32.0); Mean Corpuscular Volume 94.6 fL (81-99); Mean Platelet Vol. 11.2 fl (6.2-12.0); Monocyte# 0.38 X10^3/uL; Monocyte% 7.8 % (0-10); NRBC Flagged by Analyzer 0 % (0-5); Neutrophil % 61.3 % (47-70); Platelet Count 266 K/mm3 (150-450); RBC Distribution Width CV 13.2 % (11.6-14.6); RBC Distribution Width SD 45.4 fl (35.1-43.9); Red Blood Count 4.47 M/mm3 (4.2-5.4); White Blood Count 4.9 K/mm3 (4.4-11.0)
[2020-10-28 15:49] LABS: ALB/GLOB Ratio 1.1 RATIO (0.9-2.4); AST(SGOT) 24 U/L (15-37); Alanine Aminotransfer ALT/SGPT 36 U/L (13-56); Albumin, Serum 3.6 g/dL (3.2-5.0); Alkaline Phosphatase 100 U/L (45-117); Anion Gap 4 (5-15); BUN 17 mg/dL (7-18); BUN/Creat Ratio 17.9 RATIO (10-20); Calcium,Total 8.6 mg/dL (8.5-10.1); Chloride 105 mmol/L (98-107); Creatinine, Serum 0.95 mg/dL (0.55-1.02); EST Glomerular Filtration Rate 62 mL/min (>60); Est Glom Filt Rate - Afr Amer 75 mL/min (>60); Globulin 3.4 g/dL (2.2-4.2); Glucose 87 mg/dL (74-106); Potassium 3.9 mmol/L (3.5-5.1); Sodium Level 140 mmol/L (136-145)
== END ==
PROVIDERS: PCP Family Medicine; Referring Provider Internal Medicine Rheumatology; Visit Provider Internal Medicine Rheumatology
DX: M06.09 Rheumatoid arthritis without rheumatoid factor, multiple sites (principal); Z79.899 Other long term (current) drug therapy; M79.7 Fibromyalgia; M65.312 Trigger thumb, left thumb; E03.9 Hypothyroidism, unspecified; G43.909 Migraine, unspecified, not intractable, without status migrainosus; G47.33 Obstructive sleep apnea (adult) (pediatric)
CPT/HCPCS: 36415; 80053; 85025

== ENCOUNTER → 2020-12-12 14:10 | Outpatient (CLI) | payer MEDICARE, SELFPAY ==
[2020-12-12 15:52] LABS: Thyroid Stim Hormone (TSH) 0.85 uIU/mL (0.358-3.74)
== END ==
PROVIDERS: PCP Family Medicine; Referring Provider Family Medicine; Visit Provider Family Medicine
DX: E55.9 Vitamin D deficiency, unspecified (principal); E03.9 Hypothyroidism, unspecified
CPT/HCPCS: 36415; 82306; 84443

== ENCOUNTER → 2021-01-28 | Outpatient (CLI) | payer MEDICARE, SELFPAY | END | disposition home or self-care (01) | PROVIDERS: PCP Family Medicine; Visit Provider Registered Nurse | DX: J06.9 Acute upper respiratory infection, unspecified (principal) | CPT/HCPCS: 87635; U0005; U0003 ==

== ENCOUNTER → 2021-02-10 10:29 | Outpatient (CLI) | payer MEDICARE, SELFPAY ==
--- NOTE | 2021-02-10 10:40 | RAD_ITS ---
STUDY: X-RAY - BILATERAL HANDS REASON FOR EXAM: Female, 70 years old. Rheumatoid arthritis. TECHNIQUE - RIGHT HAND: 2 view(s) of the right hand were obtained. TECHNIQUE - LEFT HAND: 2 view(s) of the left hand were obtained. COMPARISON: None. FINDINGS - RIGHT HAND: Osteopenia. Mild arthrosis of the radiocarpal articulation. Mild arthrosis of the radial carpal row. Mild arthrosis of the first CMC joint. Mild arthrosis of the MCP and IP joints. The soft tissue structures are unremarkable. FINDINGS - LEFT HAND: Osteopenia. Mild arthrosis of the radiocarpal articulation. Mild arthrosis of the radial carpal row. Mild arthrosis of the first CMC joint. Mild arthrosis of the MCP and IP joints. The soft tissue structures are unremarkable. RAD/Hand 2 Views IMPRESSION: Osteopenia with diffuse mild osteoarthrosis as described. No acute abnormality, erosive changes, chondrocalcinosis or periostitis. Electronically Signed: Abhishek Nolan MD at 12:21 EST , Service support ,
--- NOTE | 2021-02-10 10:40 | RAD_ITS ---
STUDY: X-RAY - LEFT FOOT CLINICAL: Female, 70 years old. Pain. Rheumatoid arthritis. TECHNIQUE: 2 view(s) of the foot. COMPARISON: None. FINDINGS: Osteopenia. Normal talus, calcaneus, and tarsal bones. Mild arthrosis of the midfoot. Mild arthrosis at the tarsometatarsal joints. Moderate arthrosis of the first MTP joint. Mild arthrosis of the IP joint of the first digit and the MTP and IP joints of the second through fifth toes. Ossification of the distal Achilles tendon. RAD/Foot 2 Views IMPRESSION: Osteopenia with osteoarthritic changes as described. No acute abnormality, erosions, chondrocalcinosis or periostitis. Electronically Signed: Abhishek Nolan MD at 12:18 EST , Service support ,
--- NOTE | 2021-02-10 10:40 | RAD_ITS ---
STUDY: X-RAY - RIGHT FOOT CLINICAL: Female, 70 years old. Rheumatoid arthritis. TECHNIQUE: 2 view(s) of the foot. COMPARISON: 11/07/2014. FINDINGS: Osteopenia. Mild arthrosis of the midfoot. Postsurgical changes of hallux valgus repair with osteotomy of the distal first metatarsal. Arthrosis of the MTP and IP joints most marked at the first MTP joint. The soft tissue structures are unremarkable. RAD/Foot 2 Views IMPRESSION: Osteopenia with osteoarthritic changes, relatively unchanged from prior study. No acute abnormality, chondrocalcinosis, erosive changes or periostitis. Electronically Signed: Abhishek Nolan MD at 12:20 EST , Service support ,
--- NOTE | 2021-02-10 10:40 | RAD_ITS ---
STUDY: X-RAY - THORACIC SPINE REASON FOR EXAM: Female, 70 years old. Back pain. TECHNIQUE: 2 view(s) of the thoracic spine were obtained. COMPARISON: 09/08/2019. FINDINGS: Stable osteopenia. Slight increased kyphosis, unchanged. There is no substantial scoliosis. Normal thoracic vertebrae and endplates. Diffuse mild intervertebral disc space narrowing most marked in the mid thoracic spine with osteophyte formation. Focal discal calcification at T10-T11 unchanged. The soft tissue structures are unremarkable. RAD/Thoracic Spine 3 Views IMPRESSION: Stable osteopenia with mild diffuse thoracic spondylosis. No acute abnormality erosive change or evidence of fusion. Electronically Signed: Abhishek Nolan MD at 12:29 EST , Service support ,
--- NOTE | 2021-02-10 10:40 | RAD_ITS ---
STUDY: X-RAY - LUMBAR SPINE REASON FOR EXAM: Female, 70 years old. Low back pain. TECHNIQUE: 5 view(s) of the lumbar spine were obtained. COMPARISON: 09/08/2019. FINDINGS: Osteopenia. Normal lumbar lordosis. There is no substantial scoliosis. There is a normal alignment of the vertebrae. Mild diffuse facet sclerosis. Normal vertebral bodies and endplates. Mild intervertebral disc space narrowing at L3-4, L4-5 and L5-S1 with small osteophytes most marked at L5-S1. Phleboliths. Minimal vascular calcification. RAD/L/S Spine Min 4 Views IMPRESSION: Osteopenia with stable mild lower lumbosacral spondylosis as described. No acute abnormality, erosive change or evidence of fusion. Electronically Signed: Abhishek Nolan MD at 12:28 EST , Service support ,
--- NOTE | 2021-02-10 10:40 | RAD_ITS ---
STUDY: X-RAY - CERVICAL SPINE REASON FOR EXAM: Female, 70 years old. Neck pain. TECHNIQUE: 7 view(s) of the cervical spine including lateral flexion and extension views were obtained. COMPARISON: 09/08/2019. FINDINGS: Osteopenia. Normal anterior atlantoaxial articulation. Normal odontoid process. Normal cervical lordosis. Normal flexion with 3 mm of anterolisthesis of C4 on C5. Limited extension. Diffuse uncovertebral and facet sclerosis, relatively unchanged from prior study. Intervertebral disc space narrowing at C5-6, C6-7 and C7-T1. Anterior bony neural foraminal encroachment at C5-6 and C6-7 bilaterally. The soft tissue structures are unremarkable. RAD/Cerv Spine Obl/Flex/Ext Comp IMPRESSION: Osteopenia with mild lower cervical spondylosis as described, relatively unchanged from comparison study of 09/16/2019. Normal flexion with 3 mm of anterolisthesis of C4 on C5. Limited extension. No acute abnormality. Electronically Signed: Abhishek Nolan MD at 12:25 EST , Service support ,
== END ==
PROVIDERS: PCP Family Medicine; Referring Provider Internal Medicine Rheumatology; Visit Provider Internal Medicine Rheumatology
DX: M54.2 Cervicalgia (principal); M54.9 Dorsalgia, unspecified; M54.50 Low back pain, unspecified; M05.79 Rheumatoid arthritis with rheumatoid factor of multiple sites without organ or systems involvement
CPT/HCPCS: 72052; 72072; 72110; 73120; 73620

== ENCOUNTER → 2021-03-06 08:45 | Outpatient (CLI) | payer MEDICARE, SELFPAY ==
--- NOTE | 2021-03-06 08:49 | RAD_ITS ---
History: LOWER BACK PAIN EXAMINATION/TECHNIQUE: XR Spine Lumbar Min 4 Views: COMPARISON: None FINDINGS: VERTEBRAE: Preserved vertebral body height. No fracture. No spondylolisthesis. Degenerative changes of the posterior elements. Preservation of the normal lumbar lordosis. DISCS: Degenerative changes are noted. INCLUDED ABDOMEN: Included bowel gas pattern is non-obstructive. RAD/L/S Spine Min 4 Views IMPRESSION: Degenerative changes. No acute fracture or spondylolisthesis. No specific findings to suggest ankylosing spondylitis. at 2060 Reported and signed by: Saul Fraser MD Electronically Signed: Saul Fraser MD at 23:14 EST Tel , Service support ,
--- NOTE | 2021-03-06 08:49 | RAD_ITS ---
History: CERVICALGIA EXAMINATION/TECHNIQUE: XR Spine Cervical 6 or More Views: COMPARISON: None FINDINGS: VERTEBRAE: Preserved vertebral body height. No fracture. No spondylolisthesis. No significant change in alignment with flexion/extension. Degenerative changes of the posterior elements. Preservation of the normal cervical lordosis. DISCS: Degenerative changes are noted. NECK SOFT TISSUES: No prevertebral soft tissue widening. LUNG APICES: Clear. RAD/Cerv Spine Obl/Flex/Ext Comp IMPRESSION: Degenerative changes. No acute fracture or subluxation. at 2302 Reported and signed by: Saul Fraser MD Electronically Signed: Saul Fraser MD at 23:02 EST Tel , Service support ,
--- NOTE | 2021-03-06 08:49 | RAD_ITS ---
STUDY: X-RAY - THORACIC SPINE REASON FOR EXAM: Female, 70 years old. DORSALGIA TECHNIQUE: 2 view(s) of the thoracic spine were obtained. COMPARISON: None. FINDINGS: Normal kyphosis of the thoracic spine. There is no substantial scoliosis. There is demineralization of the thoracic spine with endplate spondylosis. There is multilevel disc space narrowing of the thoracic spine. No compression fracture. No ligamental calcifications identified. No bridging syndesmophytes. The soft tissue structures are unremarkable. RAD/Thoracic Spine 3 Views IMPRESSION: 1. Multilevel spondylosis and degenerative disc disease. 2. No compression fracture. Electronically Signed: Hernan Schulz MD ([place]) at 8:28 EST , Service support ,
--- NOTE | 2021-03-06 08:49 | RAD_ITS ---
EXAM: XR RIGHT HIP WITH PELVIS WHEN PERFORMED, 2 OR 3 VIEWS : 1950 CLINICAL INDICATION: OSTEOARTHRITIS TECHNIQUE: Two or three views of the right hip with pelvis when performed. This report was created using [employer] report Jusp technology. COMPARISON: None. FINDINGS: BONES/JOINTS: Mild degenerative changes of the right hip with minimal joint space loss. No displaced fracture. No destructive or sclerotic lesions. Note that overlapping bowel shadows may however obscure fine detail. Sacroiliac joint is unremarkable. No widening of the pubic symphysis. SOFT TISSUES: Unremarkable. No soft tissue swelling or gas. RAD/HIP, UNI W/ Pelvis 2-3 Views IMPRESSION: Mild degenerative changes of the right hip with minimal joint space loss. at 2308 Reported and signed by: Saul Fraser MD Electronically Signed: Saul Fraser MD at 23:07 EST Tel , Service support ,
== END ==
PROVIDERS: PCP Family Medicine; Referring Provider Internal Medicine Rheumatology; Visit Provider Internal Medicine Rheumatology
DX: M54.2 Cervicalgia (principal); M54.50 Low back pain, unspecified; M16.11 Unilateral primary osteoarthritis, right hip
CPT/HCPCS: 72052; 72072; 72110; 73502

== ENCOUNTER → 2021-03-27 | Outpatient (CLI) | payer MEDICARE, SELFPAY | END | disposition home or self-care (01) | PROVIDERS: PCP Family Medicine; Visit Provider Family Medicine | DX: U07.1 COVID-19 (principal) | CPT/HCPCS: 87635; U0003; U0005 ==

== ENCOUNTER 2021-04-09 11:52 | Outpatient (CLI) | payer MEDICARE, SELFPAY ==
--- NOTE | 2021-04-09 11:55 | BI_ITS ---
MAMMOGRAPHY - BILATERAL SCREENING REASON FOR EXAM: Female, 70 years old. Routine annual screening examination. PERTINENT HISTORY: Mother with breast cancer. TECHNIQUE: Digital bilateral breast joy (3D mammographic acquisition) in the CC and MLO projections. 2-D mediolateral oblique (MLO) and craniocaudad (CC) views of both breasts were obtained. CAD: Full Field Digital Mammography with Computer Added Detection was performed. COMPARISON: Comparison is made with prior study dated 04/08/2020 and 03/27/2019. FINDINGS: Breast Composition: There are scattered areas of fibroglandular density. There are no dominant masses or suspicious calcifications. Stable small benign-appearing bilateral axillary nodes. No other significant abnormalities are identified. There has been no significant change since the prior study. BI/SCRN MAMM (CAD)W/JOY BILAT IMPRESSION: Stable bilateral screening mammogram. Yearly follow-up mammogram recommended. (A) ASSESSMENT CATEGORY: BIRADS Category 2: Benign. A letter regarding these results will be sent to the patient by the facility within 30 days. Approximately 10% of breast cancers are not detected by mammography. A normal mammogram should not delay biopsy of a clinically suspicious abnormality. [id number] Electronically Signed: Mark Bourgeois MD at 13:02 EST , Service support ,
== END 2021-04-09 23:59 | disposition short-term general hospital (02) ==
PROVIDERS: PCP Family Medicine; Referring Provider Obstetrics & Gynecology; Visit Provider Obstetrics & Gynecology
DX: Z12.31 Encounter for screening mammogram for malignant neoplasm of breast (principal)
CPT/HCPCS: 77063; 77067

== ENCOUNTER 2021-06-16 11:11 | Outpatient (CLI) | payer MEDICARE, SELFPAY ==
[2021-06-16 16:23] LABS: Anion Gap 4 (5-15); BUN 12 mg/dL (7-18); BUN/Creat Ratio 12.2 RATIO (10-20); Calcium,Total 8.9 mg/dL (8.5-10.1); Chloride 108 mmol/L (98-107); Cholesterol 185 mg/dL (200); Creatinine, Serum 0.98 mg/dL (0.55-1.02); EST Glomerular Filtration Rate 60 mL/min (>60); Est Glom Filt Rate - Afr Amer 72 mL/min (>60); Free T3 2.5 pg/mL (2.18-3.98); Glucose 92 mg/dL (74-106); High Density Lipoprotein 59 mg/dL; Potassium 3.8 mmol/L (3.5-5.1); Sodium Level 141 mmol/L (136-145); Thyroid Stim Hormone (TSH) 0.13 uIU/mL (0.358-3.74); Triglycerides 110 mg/dL; Very Low Density Lipoprotein 22 mg/dL (5-40)
== END 2021-06-16 23:59 | disposition home or self-care (01) ==
LOC: MTLAB 11:12
PROVIDERS: PCP Family Medicine; Referring Provider Family Medicine; Visit Provider Family Medicine
DX: E03.9 Hypothyroidism, unspecified (principal); E78.5 Hyperlipidemia, unspecified
CPT/HCPCS: 36415; 80048; 80061; 84439; 84443; 84481

== ENCOUNTER → 2021-09-17 | Outpatient (CLI) | payer MEDICARE, SELFPAY ==
[2021-09-17 17:45] LABS: Erythrocyte Sedimentation Rate 3 mm/hr (0-30)
[2021-09-17 17:47] LABS: Absolute Lymphocyte Count 1.04 X10^3/uL (0.83-4.51); Absolute Neutrophil Count 4.4 X10^3/uL (2.0-7.7); Basophil# 0.05 X10^3/uL; Basophil% 0.8 % (0-1); Eosinophil# 0.11 X10^3/uL; Eosinophils% 1.8 % (0-5); Hematocrit 40.6 % (37-47); Hemoglobin 13.4 g/dL (12.0-15.0); Lymphocyte # 1.04 X10^3/ul (0.83-4.51); Mean Platelet Vol. 10.9 fl (6.2-12.0); Monocyte# 0.54 X10^3/uL; Monocyte% 8.8 % (0-10); NRBC Flagged by Analyzer 0 % (0-5); Neutrophil # 4.36 X10^3/uL (2.7-7.7); Neutrophil % 71.3 % (47-70); Platelet Count 202 K/mm3 (150-450); RBC Distribution Width SD 43.1 fl (35.1-43.9); Red Blood Count 4.46 M/mm3 (4.2-5.4); White Blood Count 6.1 K/mm3 (4.4-11.0)
[2021-09-17 17:51] LABS: AST(SGOT) 22 U/L (15-37); Alanine Aminotransfer ALT/SGPT 31 U/L (13-56); Albumin, Serum 3.5 g/dL (3.2-5.0); Alkaline Phosphatase 94 U/L (45-117); Bilirubin, Direct 0.11 mg/dL (0.00-0.30); Creatinine, Serum 1.06 mg/dL (0.55-1.02); EST Glomerular Filtration Rate 55 mL/min (>60); Est Glom Filt Rate - Afr Amer 66 mL/min (>60); Globulin 3.4 g/dL (2.2-4.2); Protein, Total 6.9 g/dL (6.4-8.2)
== END | disposition home or self-care (01) ==
LOC: MTLAB 16:35
PROVIDERS: PCP Family Medicine; Referring Provider Internal Medicine Rheumatology; Visit Provider Internal Medicine Rheumatology
DX: M05.79 Rheumatoid arthritis with rheumatoid factor of multiple sites without organ or systems involvement (principal); Z79.899 Other long term (current) drug therapy
CPT/HCPCS: 36415; 80076; 82565; 85025; 85652; 86140

== ENCOUNTER → 2021-10-08 | Outpatient (CLI) | payer MEDICARE, SELFPAY ==
[2021-10-08 15:52] LABS: BUN 20 mg/dL (7-18); Creatinine, Serum 0.98 mg/dL (0.55-1.02); EST Glomerular Filtration Rate 60 mL/min (>60); Est Glom Filt Rate - Afr Amer 72 mL/min (>60)
== END | disposition home or self-care (01) ==
PROVIDERS: PCP Family Medicine; Referring Provider Internal Medicine Rheumatology; Visit Provider Internal Medicine Rheumatology
DX: R94.4 Abnormal results of kidney function studies (principal)
CPT/HCPCS: 36415; 82565; 84520

== ENCOUNTER → 2021-12-03 | Outpatient (CLI) | payer MEDICARE, SELFPAY | END | disposition home or self-care (01) | PROVIDERS: PCP Family Medicine; Visit Provider Family Medicine | DX: Z20.822 Contact with and (suspected) exposure to COVID-19 (principal) | CPT/HCPCS: 87635; U0003; U0005 ==

== ENCOUNTER → 2021-12-10 | Outpatient (CLI) | payer MEDICARE, SELFPAY ==
[2021-12-10 17:48] LABS: T4 Free Direct 1.11 ng/dL (0.76-1.46); Thyroid Stim Hormone (TSH) 0.67 uIU/mL (0.358-3.74)
== END | disposition home or self-care (01) ==
LOC: MFPLAB 14:34
PROVIDERS: PCP Family Medicine; Referring Provider Family Medicine; Visit Provider Family Medicine
DX: E03.9 Hypothyroidism, unspecified (principal)
CPT/HCPCS: 36415; 84439; 84443; 84481

== ENCOUNTER → 2022-01-14 | Outpatient (CLI) | payer MEDICARE, SELFPAY ==
[2022-01-14 15:18] LABS: Absolute Lymphocyte Count 1.49 X10^3/uL (0.83-4.51); Absolute Neutrophil Count 3.4 X10^3/uL (2.0-7.7); Basophil# 0.04 X10^3/uL; Basophil% 0.7 % (0-1); Eosinophil# 0.14 X10^3/uL; Eosinophils% 2.5 % (0-5); Hematocrit 41.6 % (37-47); Hemoglobin 14.2 g/dL (12.0-15.0); Lymphocyte # 1.49 X10^3/ul (0.83-4.51); Lymphocyte % 27.1 % (19-41); Mean Corp Hgb Conc 34.1 g/dL (32-36); Mean Corpuscular Hgb 31.3 pg (27.0-32.0); Mean Corpuscular Volume 91.6 fL (81-99); Monocyte# 0.42 X10^3/uL; Monocyte% 7.6 % (0-10); NRBC Flagged by Analyzer 0 % (0-5); Neutrophil # 3.39 X10^3/uL (2.7-7.7); Neutrophil % 61.7 % (47-70); Platelet Count 252 K/mm3 (150-450); RBC Distribution Width CV 12.8 % (11.6-14.6); RBC Distribution Width SD 43.2 fl (35.1-43.9); Red Blood Count 4.54 M/mm3 (4.2-5.4); White Blood Count 5.5 K/mm3 (4.4-11.0)
[2022-01-14 15:30] LABS: AST(SGOT) 20 U/L (15-37); Alanine Aminotransfer ALT/SGPT 24 U/L (13-56); Albumin, Serum 3.7 g/dL (3.2-5.0); Alkaline Phosphatase 107 U/L (45-117); BUN 17 mg/dL (7-18); CPK Total, Creatine Kinase 56 U/L (26-192); CRP < 2.90 mg/L (0.0-3.0); Creatinine, Serum 1.15 mg/dL (0.55-1.02); EST Glomerular Filtration Rate 50 mL/min (>60); Est Glom Filt Rate - Afr Amer 60 mL/min (>60); Globulin 3.3 g/dL (2.2-4.2)
[2022-01-14 15:34] LABS: Vitamin D,25 Hydroxy 40.8 ng/mL
[2022-01-14 17:09] LABS: Erythrocyte Sedimentation Rate 7 mm/hr (0-30)
[2022-01-18 15:53] LABS: Aldolase 3.6 U/L (3.3-10.3)
== END | disposition home or self-care (01) ==
LOC: MTLAB 13:39
PROVIDERS: PCP Family Medicine; Referring Provider Internal Medicine Rheumatology; Visit Provider Internal Medicine Rheumatology
DX: M05.79 Rheumatoid arthritis with rheumatoid factor of multiple sites without organ or systems involvement (principal); M79.7 Fibromyalgia; E55.9 Vitamin D deficiency, unspecified; R94.4 Abnormal results of kidney function studies; Z79.899 Other long term (current) drug therapy
CPT/HCPCS: 36415; 80076; 82085; 82306; 82550; 82565; 84520; 85025; 85652; 86140

== ENCOUNTER → 2022-02-03 | Outpatient (CLI) | payer MEDICARE, SELFPAY ==
[2022-02-03 12:34] LABS: BUN 16 mg/dL (7-18); Creatinine, Serum 0.82 mg/dL (0.55-1.02); EST Glomerular Filtration Rate 74 mL/min (>60); Est Glom Filt Rate - Afr Amer 89 mL/min (>60)
== END | disposition home or self-care (01) ==
LOC: MTLAB 10:10
PROVIDERS: PCP Family Medicine; Referring Provider Internal Medicine Rheumatology; Visit Provider Internal Medicine Rheumatology
DX: R94.4 Abnormal results of kidney function studies (principal)
CPT/HCPCS: 36415; 82565; 84520

== ENCOUNTER → 2022-04-13 | Outpatient (CLI) | payer MEDICARE, SELFPAY ==
--- NOTE | 2022-04-13 12:33 | BI_ITS ---
MAMMOGRAPHY - BILATERAL SCREENING REASON FOR EXAM: Female, 71 years old. Routine annual screening examination. PERTINENT HISTORY: Mother with breast cancer. TECHNIQUE: Digital bilateral breast joy (3D mammographic acquisition) in the CC and MLO projections. 2-D mediolateral oblique (MLO) and craniocaudad (CC) views of both breasts were obtained. CAD: Full Field Digital Mammography with Computer Added Detection was performed. COMPARISON: Comparison is made with prior study dated 04/09/2021 and 04/08/2020. FINDINGS: Breast Composition: There are scattered areas of fibroglandular density. There are no dominant masses or suspicious calcifications. Stable small benign-appearing bilateral axillary lymph nodes. No other significant abnormalities are identified. There has been no significant change since the prior study. BI/SCRN MAMM (CAD)W/JOY BILAT IMPRESSION: Stable bilateral screening mammogram. Yearly follow-up mammogram recommended. (A) ASSESSMENT CATEGORY: BIRADS Category 2: Benign. A letter regarding these results will be sent to the patient by the facility within 30 days. Approximately 10% of breast cancers are not detected by mammography. A normal mammogram should not delay biopsy of a clinically suspicious abnormality. [id number] Electronically Signed: Mark Bourgeois MD at 13:42 EST ,
== END | disposition home or self-care (01) ==
LOC: OPBI 12:31
PROVIDERS: PCP Family Medicine; Visit Provider Obstetrics & Gynecology
DX: Z12.31 Encounter for screening mammogram for malignant neoplasm of breast (principal); Z80.3 Family history of malignant neoplasm of breast
CPT/HCPCS: 77063; 77067

== ENCOUNTER → 2022-05-28 | Outpatient (CLI) | payer MEDICARE, SELFPAY ==
[2022-05-28 12:53] LABS: BUN 19 mg/dL (7-18); Creatinine, Serum 1.07 mg/dL (0.55-1.02); EST Glomerular Filtration Rate 54 mL/min (>60); Est Glom Filt Rate - Afr Amer 65 mL/min (>60)
== END | disposition home or self-care (01) ==
LOC: MTLAB 10:02
PROVIDERS: PCP Family Medicine; Referring Provider Internal Medicine Rheumatology; Visit Provider Internal Medicine Rheumatology
DX: R94.4 Abnormal results of kidney function studies (principal)
CPT/HCPCS: 36415; 82565; 84520

== ENCOUNTER → 2022-09-25 | Outpatient (CLI) | payer MEDICARE, SELFPAY ==
[2022-09-25 12:33] LABS: Absolute Lymphocyte Count 1.53 X10^3/uL (0.83-4.51); Absolute Neutrophil Count 2.9 X10^3/uL (2.0-7.7); Basophil# 0.06 X10^3/uL; Basophil% 1.2 % (0-1); Eosinophil# 0.16 X10^3/uL; Eosinophils% 3.2 % (0-5); Hemoglobin 14.6 g/dL (12.0-15.0); Lymphocyte # 1.53 X10^3/ul (0.83-4.51); Lymphocyte % 30.5 % (19-41); Mean Corp Hgb Conc 33.2 g/dL (32-36); Mean Corpuscular Hgb 31.1 pg (27.0-32.0); Mean Corpuscular Volume 93.6 fL (81-99); Monocyte# 0.38 X10^3/uL; Monocyte% 7.6 % (0-10); NRBC Flagged by Analyzer 0 % (0-5); Neutrophil # 2.88 X10^3/uL (2.7-7.7); Neutrophil % 57.3 % (47-70); Platelet Count 266 K/mm3 (150-450); RBC Distribution Width SD 44.8 fl (35.1-43.9)
[2022-09-25 13:00] LABS: Erythrocyte Sedimentation Rate 3 mm/hr (0-30)
[2022-09-25 13:12] LABS: AST(SGOT) 24 U/L (15-37); Alanine Aminotransfer ALT/SGPT 23 U/L (13-56); Albumin, Serum 3.6 g/dL (3.2-5.0); Alkaline Phosphatase 97 U/L (45-117); BUN 20 mg/dL (7-18); Bilirubin, Direct 0.11 mg/dL (0.00-0.30); Cholesterol 240 mg/dL (200); Creatinine, Serum 1.09 mg/dL (0.55-1.02); EST Glomerular Filtration Rate 53 mL/min (>60); Est Glom Filt Rate - Afr Amer 64 mL/min (>60); Free T3 2.3 pg/mL (2.18-3.98); Globulin 3.2 g/dL (2.2-4.2); High Density Lipoprotein 72 mg/dL; Protein, Total 6.8 g/dL (6.4-8.2); T4 Free Direct 1.12 ng/dL (0.76-1.46); Thyroid Stim Hormone (TSH) 0.77 uIU/mL (0.358-3.74); Triglycerides 146 mg/dL; Very Low Density Lipoprotein 29 mg/dL (5-40)
== END | disposition home or self-care (01) ==
LOC: MFPLAB 10:00
PROVIDERS: PCP Family Medicine; Visit Provider Family Medicine
DX: Z00.00 Encounter for general adult medical examination without abnormal findings (principal); M05.79 Rheumatoid arthritis with rheumatoid factor of multiple sites without organ or systems involvement; E03.9 Hypothyroidism, unspecified; R94.4 Abnormal results of kidney function studies; Z79.899 Other long term (current) drug therapy
CPT/HCPCS: 36415; 80061; 80076; 82565; 84439; 84443; 84481; 84520; 85025; 85652; 86140

== ENCOUNTER → 2023-01-18 | Outpatient (CLI) | payer MEDICARE, SELFPAY ==
[2023-01-18 12:35] LABS: Vitamin D,25 Hydroxy 47.8 ng/mL
[2023-01-18 12:50] LABS: Anion Gap 2 (5-15); BUN 12 mg/dL (7-18); BUN/Creat Ratio 12.6 RATIO (10-20); Calcium,Total 8.7 mg/dL (8.5-10.1); Chloride 108 mmol/L (98-107); Cholesterol 197 mg/dL (200); Creatinine, Serum 0.95 mg/dL (0.55-1.02); EST Glomerular Filtration Rate 62 mL/min (>60); Est Glom Filt Rate - Afr Amer 75 mL/min (>60); Free T3 2.1 pg/mL (2.18-3.98); Glucose 93 mg/dL (74-106); High Density Lipoprotein 68 mg/dL; Sodium Level 142 mmol/L (136-145); Thyroid Stim Hormone (TSH) 0.36 uIU/mL (0.358-3.74); Triglycerides 133 mg/dL; Very Low Density Lipoprotein 27 mg/dL (5-40)
== END | disposition home or self-care (01) ==
LOC: MFPLAB 10:17
PROVIDERS: PCP Family Medicine; Visit Provider Family Medicine
DX: Z00.00 Encounter for general adult medical examination without abnormal findings (principal); E55.9 Vitamin D deficiency, unspecified; E03.9 Hypothyroidism, unspecified
CPT/HCPCS: 36415; 80048; 80061; 82306; 84439; 84443; 84481

== ENCOUNTER → 2023-03-15 | Outpatient (CLI) | payer MEDICARE, SELFPAY ==
[2023-03-15 18:43] LABS: Free T3 2.1 pg/mL (2.18-3.98); T4 Free Direct 1.27 ng/dL (0.76-1.46); Thyroid Stim Hormone (TSH) 0.17 uIU/mL (0.358-3.74)
== END | disposition home or self-care (01) ==
LOC: MFPLAB 16:12
PROVIDERS: PCP Family Medicine; Visit Provider Family Medicine
DX: E03.9 Hypothyroidism, unspecified (principal)
CPT/HCPCS: 36415; 84439; 84443; 84481

== ENCOUNTER → 2023-05-10 | Outpatient (CLI) | payer MEDICARE, SELFPAY ==
--- OUTSIDE RECORDS SUMMARY | 2023-05-10 11:57 | XMS RPT_ITS | CCD ---
Author Name Unknown Address [address] [place] [address] Organization [facility] Care Team Providers Care Mask Design Engineer Name Role Phone Unavailable Primary Care Provider UnavailVince Steiner Primary Care Provider Unavailabl e Allergies Allergy Classification Reported Allergen(s) Allergy Type Date of Onset Reaction(s) Facility (1 source) House dust mite Allergy to substance 08-13-2015 Rash [facility] Medications Completed/Discontinued Medications Medication Drug Class(es) Dates Sig (Normalized) Sig (Original) aspirin 325 mg / butalbital 50 mg / caffeine 40 mg / codeine phosphate 30 mg oral capsule (1 source) Platelet Aggregation Inhibitor, Opioid Agonist, Barbiturate, Nonsteroidal Anti-inflammatory Drug, Central Nervous System Stimulant, Methylxanthine take 1 capsule by mouth every four hours as needed butalbital-aspirin -caffeine-codeine (FIORINAL WITH CODEINE) capsule Take 1 capsule by mouth every 4 hours as needed. 0 Active Problems Active Problems Problem Classification Problem Date Documented Da te Episodic/Chronic Headache; including migraine (2 sources) Migraine without aura; Translations: [Migraine without aura, not intractable, without status migrainosus] Onset: 09-25-2003 01-20-2010 Chronic Miscellaneous mental health disorders (1 source) Bruxism (teeth grinding); Translations: [Other somatoform disorders] Onset: 03-04-2009 03-04-2009 Chronic Rheumatoid arthritis and related disease (1 source) Inflammatory polyarthropathy; Translations: [Inflammatory polyarthropathy] Onset: 08-13-2015 08-13-2015 Chronic Past or Other Problems Problem Classification Problem Date Documented Da te Episodic/Chronic Other connective tissue disease (1 source) Muscle pain; Translations: [Myalgia and myositis, unspecified] Onset: 10-05-2005 01-20-2010 Episodic Results Test Name Value Interpretation Reference Range Facil ity Encounters Encounter Date Encounter Type Care Provider Facility Start: 03-05-2021 End: 03-05-2021 Subsequent hospital visit by physician Damien Jimenes MD Work Phone: [facility] Procedures Date Procedure Procedure Detail Performing Clinician Start: 02-13-2019 Mri any jt lower ext rem w/o contrast matrl Juan Shields Work Phone: Start: 10-15-2009 Adult depression screening assessment Damien Jimenes MD Work Phone: Plan of Treatment Date Care Activity Detail Author Start: 11-27-2020 Influenza vaccination INFLUENZA (#1) [facility] Start: 11-27-2018 Influenza vaccination Flu vaccine (#1) [place] Start: 2017 ADVANCE DIRECTIVE DISCUSSION ADVANCE DIRECTIVE DISCUSSION [facility] Start: 2017 BONE DENSITY BONE DENSITY [facility] Start: 2017 DEXA (modify frequency per FRAX score) DEXA (modify frequency per FRAX score) [place] Start: 2017 Pneumococcal 65+ years Vaccine (1 of 1 - PPSV23) Pneumococcal 65+ years Vaccine (1 of 1 - PPSV23) [place] Start: 2017 PNEUMOVAX AGE 65 AND OVER WITH 5YR LOOKBACK (#1) PNEUMOVAX AGE 65 AND OVER WITH 5YR LOOKBACK (#1) [facility] Start: 08-31-2011 DIABETES SCREEN DIABETES SCREEN [facility] Start: 10-15-2010 Adult depression screening assessment DEPRESSION SCREENING [facility] Start: 2002 Breast cancer screen Breast cancer screen [place] Start: 2002 Colon cancer screen colonoscopy Colon cancer screen colonoscopy [place] Start: 2002 Shingles Vaccine (1 of 2) Shingles Vaccine (1 of 2) [place] Start: 2002 SHINGRIX VACCINE (1 of 2) SHINGRIX VACCINE (1 of 2) [facility] Start: 1997 COLOGUARD (FIT-DNA) COLOGUARD (FIT-DNA) [facility] Start: 1997 Colonoscopy COLONOSCOPY [facility] Start: 1997 COLORECTAL CANCER SCREENING COLORECTAL CANCER SCREENING [facility] Start: [address] COLONOGRAPHY [facility] Start: 1997 FECAL OCCULT BLOOD FECAL OCCULT BLOOD [facility] Start: 1997 LIPID SCREEN LIPID SCREEN [facility] Start: 1997 SIGMOIDOSCOPY SIGMOIDOSCOPY [facility] Start: 1992 Lipid screen Lipid screen [place] Start: 1992 Mammography MAMMOGRAM [facility] Start: 11-24-1971 Urine microalbumin profile DTAP,TDAP,TD (1 - Tdap) [facility] Start: 1970 HEPATITIS C SCREENING HEPATITIS C SCREENING [facility] Start: 1964 COVID-19 VACCINE (1) COVID-19 VACCINE (1) [facility] Start: 11-24-1963 DTaP/Tdap/Td vaccine (1 - Tdap) DTaP/Tdap/Td vaccine (1 - Tdap) [place], [place] Start: 1952 Hepatitis C screen Hepatitis C screen [place] Payers Date Payer Category Payer Unknown MMO MMO [employer] [id number] 2015-Present [phone] [address] [place] [address] O [id number] Social History Date Type Detail [facility] [place] [place] Start: 1950 Sex Assigned At Not on file [place] [facility] Start: 08-13-2015 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 Advance Directives and Living Will Power of Coarse Wire Drawer Summary Purpose Family History No Family History Records FoundNo Family History Records Found Additional Source Comments INFORMATION SOURCE (unrecogn ized section and content) DATE CREATED AUTHOR AUTHOR'S ORGANIZ ATION 07/01/2021 [facility] Helen Rojas Source Comments (unrecognize d section and content) In the event this informatio n is protected by the Federal Confidentiality of Alcohol and Drug Abuse Patient Records regulations: The Federal rules restrict any use of the information to criminally investigate or prosecute any alcohol or drug abuse patient.[facility] Care Teams (unrecognized sec tion and content) FOR RECORDS PERTAINING TO PATIENTS WHO ARE OR HAVE BEEN ENROLLED IN A CHEMICAL DEPENDENCY/SUBSTANCEABUSE PROGRAM, SOME INFORMATION MAY BE OMITTED. This clinical summary was aggregated from multiple sources. Caution should be exercised in using it in the provision of clinical care. This summary normalizes information from multiple sources, and as a consequence, information in this document may materially change the coding, format and clinical context of patient data. In addition, data may be omitted in some cases. CLINICAL DECISIONS SHOULD BE BASED ON THE PRIMARY CLINICAL RECORDS. [facility] provides no warranty or guarantee of the accuracy or completeness of information in this document.
[2023-05-10 15:32] LABS: Absolute Lymphocyte Count 1.74 X10^3/uL (0.83-4.51); Absolute Neutrophil Count 3.7 X10^3/uL (2.0-7.7); Basophil# 0.06 X10^3/uL; Eosinophil# 0.11 X10^3/uL; Eosinophils% 1.8 % (0-5); Hematocrit 45.3 % (37-47); Hemoglobin 14.4 g/dL (12.0-15.0); Lymphocyte # 1.74 X10^3/ul (0.83-4.51); Lymphocyte % 28.7 % (19-41); Mean Corp Hgb Conc 31.8 g/dL (32-36); Mean Corpuscular Hgb 29.4 pg (27.0-32.0); Mean Corpuscular Volume 92.6 fL (81-99); Mean Platelet Vol. 11.1 fl (6.2-12.0); Monocyte# 0.41 X10^3/uL; Monocyte% 6.8 % (0-10); NRBC Flagged by Analyzer 0 % (0-5); Neutrophil # 3.73 X10^3/uL (2.7-7.7); Neutrophil % 61.4 % (47-70); Platelet Count 309 K/mm3 (150-450); RBC Distribution Width SD 44.4 fl (35.1-43.9); Red Blood Count 4.89 M/mm3 (4.2-5.4); White Blood Count 6.1 K/mm3 (4.4-11.0)
[2023-05-10 15:49] LABS: Erythrocyte Sedimentation Rate 2 mm/hr (0-30); Vitamin B12 848 pg/mL (211-911)
[2023-05-10 16:34] LABS: ALB/GLOB Ratio 1.1 RATIO (0.9-2.4); AST(SGOT) 20 U/L (15-37); Alanine Aminotransfer ALT/SGPT 20 U/L (13-56); Albumin, Serum 3.5 g/dL (3.2-5.0); Alkaline Phosphatase 118 U/L (45-117); Anion Gap 8 (5-15); BUN 13 mg/dL (7-18); BUN/Creat Ratio 14.2 RATIO (10-20); CRP < 2.90 mg/L (0.0-3.0); Chloride 107 mmol/L (98-107); Creatinine, Serum 0.91 mg/dL (0.55-1.02); EST Glomerular Filtration Rate 65 mL/min (>60); Est Glom Filt Rate - Afr Amer 78 mL/min (>60); Globulin 3.2 g/dL (2.2-4.2); Glucose 80 mg/dL (74-106); Potassium 3.8 mmol/L (3.5-5.1); Protein, Total 6.7 g/dL (6.4-8.2); Sodium Level 142 mmol/L (136-145); Thyroid Stim Hormone (TSH) 0.51 uIU/mL (0.358-3.74)
== END | disposition home or self-care (01) ==
PROVIDERS: PCP Family Medicine; Referring Provider Nurse Practitioner Family; Visit Provider Nurse Practitioner Family
DX: G30.9 Alzheimer's disease, unspecified (principal); F02.80 Dementia in other diseases classified elsewhere, unspecified severity, without behavioral disturbance, psychotic disturbance, mood disturbance, and anxiety; R41.3 Other amnesia
CPT/HCPCS: 36415; 80053; 82607; 84443; 85025; 85652; 86140

== ENCOUNTER → 2023-06-17 | Outpatient (CLI) | payer MEDICARE, SELFPAY ==
--- NOTE | 2023-06-17 06:32 | MRI_ITS ---
EXAM: MR HEAD WITHOUT INTRAVENOUS CONTRAST CLINICAL INDICATION: Memory loss. TECHNIQUE: Multiplanar and multisequence MR images of the brain were obtained without intravenous contrast. COMPARISON: MRI brain without contrast and MRA head without contrast 01/27/2016. CT head without contrast 04/09/2008. FINDINGS: BRAIN AND EXTRA-AXIAL SPACES: Moderate cerebral atrophy, central and cortical. This accounts for the dilatation of the third and lateral ventricles. Normal cerebral aqueduct and fourth ventricle. No intra- or extra-axial hemorrhage. No evidence of acute infarct. No intracranial mass or mass effect. There is preservation of the lyle/white matter interface. Posterior fossa structures are unremarkable. No hydrocephalus. Basal cisterns are patent. No focal signal abnormalities throughout the brain parenchyma in all pulse sequences. SELLA: Unremarkable. Normal sella turcica, pituitary gland, infundibular stalk, optic chiasm and hypothalamus. AUDITORY SYSTEM: Unremarkable. The internal auditory canals are patent. BONES/JOINTS: Unremarkable. No discrete lytic or blastic abnormalities. SINUSES: Unremarkable as visualized. Clear. MASTOID AIR CELLS: Unremarkable as visualized. Clear. ORBITS: Unremarkable as visualized. Both globes, extraocular muscles, optic nerves and retrobulbar fat appear unremarkable. VASCULATURE: Unremarkable as visualized. Normal flow voids in the major intracranial circulation. MRI/Brain without Contrast IMPRESSION: Moderate cerebral atrophy, more central and cortical. This accounts for disproportionate dilatation of the third and lateral ventricles. Otherwise negative MRI brain without contrast. Electronically Signed: Felix Rivera MD at 9:12 EDT ,
== END | disposition home or self-care (01) ==
LOC: MRI 06:24
PROVIDERS: PCP Family Medicine; Referring Provider Nurse Practitioner Family; Visit Provider Nurse Practitioner Family
DX: R41.3 Other amnesia (principal)
CPT/HCPCS: 70551

== ENCOUNTER → 2023-07-08 | Outpatient (CLI) | payer MEDICARE, SELFPAY ==
--- NOTE | 2023-07-08 14:02 | BI_ITS ---
MAMMOGRAPHY - BILATERAL SCREENING REASON FOR EXAM: Female, 72 years old. Routine annual screening examination. PERTINENT HISTORY: Mother with breast cancer. TECHNIQUE: Digital bilateral breast joy (3D mammographic acquisition) in the CC and MLO projections. 2-D mediolateral oblique (MLO) and craniocaudad (CC) views of both breasts were obtained. CAD: Full Field Digital Mammography with Computer Added Detection was performed. COMPARISON: Comparison is made with prior examination dated October 11, 2022 and 2021. FINDINGS: Breast Composition: There are scattered areas of fibroglandular density. There are no dominant masses or suspicious calcifications. Stable small benign-appearing. Bilateral axillary lymph nodes. Stable scattered calcifications in both breasts. No other significant abnormalities are identified. There has been no significant change since the prior study. BI/SCRN MAMM (CAD)W/JOY BILAT IMPRESSION: Stable bilateral screening mammogram. Yearly follow-up mammogram recommended. (A) ASSESSMENT CATEGORY: BIRADS Category 2: Benign. A letter regarding these results will be sent to the patient by the facility within 30 days. Approximately 10% of breast cancers are not detected by mammography. A normal mammogram should not delay biopsy of a clinically suspicious abnormality. [id number] Electronically Signed: Mark Bourgeios MD at 14:58 EDT ,
== END | disposition home or self-care (01) ==
LOC: OPBD 14:00
PROVIDERS: PCP Family Medicine; Referring Provider Nurse Practitioner Women's Health; Visit Provider Nurse Practitioner Women's Health
DX: Z12.31 Encounter for screening mammogram for malignant neoplasm of breast (principal); Z80.3 Family history of malignant neoplasm of breast
CPT/HCPCS: 77063; 77067

== ENCOUNTER → 2023-07-21 | Outpatient (CLI) | payer MEDICARE, SELFPAY ==
[2023-07-21 16:12] LABS: Free T3 2.2 pg/mL (2.18-3.98); T4 Free Direct 1.14 ng/dL (0.76-1.46); Thyroid Stim Hormone (TSH) 0.29 uIU/mL (0.358-3.74)
== END | disposition home or self-care (01) ==
LOC: MFPLAB 13:54
PROVIDERS: PCP Family Medicine; Visit Provider Family Medicine
DX: E03.9 Hypothyroidism, unspecified (principal)
CPT/HCPCS: 36415; 84439; 84443; 84481

== ENCOUNTER → 2024-01-19 | Outpatient (CLI) | payer MEDICARE, SELFPAY ==
--- OUTSIDE RECORDS SUMMARY | 2024-01-19 16:59 | XMS RPT_ITS | CCD ---
Author Organization [facility] Care Team Providers Care Mathematics Education Professor Name Role Phone Unavailable Primary Care Provider Vince Correa Primary Care Provider UnavailZOHRA Sandhu Attending Unavailable ZOHRA PAUL Attending Unavailable UNIQUE WILL Attending Unavailable ZOHRA PAUL Attending Unavailable Horacio Ivey MD Primary Care Provider INEZ CHADWICK Attending Unavailable HORACIO IVEY Primary Care Unavailable SELF Referring Unavailable INEZ CHADWICK Referring Unavailable HORACIO IVEY Primary Care Unavailable INEZ CHADWICK Referring Unavailable HORACIO IVEY Primary Care Unavailable INEZ CHADWICK Attending Unavailable HORACIO IVEY Primary Care Unavailable Allergies Allergy Classification Reported Allergen(s) Allergy Type Date of Onset Reaction(s) Facility (7 sources) House dust mite; Translations: [DUST MITES] Allergy to substance 08-13-[address] [facility] Medications Current Medications Medication Drug Class(es) Dates Sig (Normalized) Sig (Original) aspirin 325 mg / butalbital 50 mg / caffeine 40 mg / codeine phosphate 30 mg oral capsule (6 sources) Platelet Aggregation Inhibitor, Opioid Agonist, Barbiturate, Nonsteroidal Anti-inflammatory Drug, Central Nervous System Stimulant, Methylxanthine take 1 capsule by mouth every four hours as needed butalbital-aspiri k-csgcbaee-mxgoav e (FIORINAL WITH CODEINE) capsule Take 1 capsule by mouth every 4 hours as needed. Active Comment on above: Take [address] [facility] every 4 hours as needed. aspirin 400 mg / caffeine 32 mg oral tablet (6 sources) Platelet Aggregation Inhibitor, Nonsteroidal Anti-inflammatory Drug, Central Nervous System Stimulant, Methylxanthine Aspirin-Caffeine 400-32 mg tab Take by mouth as needed. Active Comment on above: Take by mouth as nee ded. Calcium Carbonate / vitamin D3 (5 sources) calcium carbonate/vitamin D3 (CALTRATE 600 PLUS D ORAL) Take by mouth. Active cholecalciferol 0.05 mg oral capsule (6 sources) Vitamin D Cholecalciferol, Vitamin D3, 2,000 unit cap Take by mouth once daily. Active Comment on above: Take by mouth once d aily. DULoxetine 30 mg oral tablet (5 sources) Serotonin and Norepinephrine Reuptake Inhibitor duloxetine HCl (CYMBALTA ORAL) Take 30 mg by mouth. Active fexofenadine (6 sources) Histamine-1 Receptor Antagonist DINORAH 60 MG CAP 60 mg. Active DINORAH 60 MG CA P 60 mg. 0 Active Comment on above: 60 mg. galcanezumab-gnlm (EMGALITY PEN SUBCUTANEOUS) (5 sources) galcanezumab-gnl m (EMGALITY PEN SUBCUTANEOUS) Inject subcutaneously. Active hydroxychloroquine sulfate 200 mg oral tablet (6 sources) Antimalarial, Antirheumatic Agent take 1 tablet by mouth once daily hydroxychloroquine (PLAQUENIL) 200 mg tablet Take 200 mg by mouth once daily. Active Comment on above: Take 200 mg by mouth once daily. levothyroxine sodium 0.125 mg oral tablet (6 sources) l-Thyroxine Start: 2003 SYNTHROID 125MCG TABLET Take one(1) tablet daily. 0 05/04/2003 Active Comment on above: Take one(1) tablet d aily. mv-mn/folic ac/calcium/vit K1 (WOMEN'S 50 PLUS MULTIVITAMIN ORAL) (5 sources) mv-mn/folic ac/calcium/vit K1 (WOMEN'S 50 PLUS MULTIVITAMIN ORAL) Take by mouth. Active naproxen sodium 220 mg oral tablet (6 sources) Nonsteroidal Anti-inflammatory Drug Start: 2009 naproxen sodium(ALEVE 220 MG TAB) Indications: Migraine without aura, without mention of intractable migraine without mention of status migrainosus Take one(1) tablet twice daily. 0 10/15/2009 Active Comment on above: Take one(1) tablet t wice daily. omeprazole 20 mg delayed release oral capsule (5 sources) Proton Pump Inhibitor take 1 capsule by mouth once daily omeprazole (PRILOSEC) 20 mg capsule Take 20 mg by mouth once daily. Active rizatriptan 5 mg disintegrating oral tablet (6 sources) Serotonin-1b and Serotonin-1d Receptor Agonist take 1 tablet by mouth every two hours as needed rizatriptan (MAXALT PLODDING OPERATOR) 5 mg disintegrating tablet Take 5 mg by mouth as needed. May repeat in 2 hours if needed Active Comment on above: Take 5 mg by mouth a s needed. May repeat in 2 hours if needed rosuvastatin calcium 5 mg oral tablet (5 sources) HMG-CoA Reductase Inhibitor rosuvastatin (CRESTO R) 5 mg tablet Take 5 mg by mouth. Every three days Active ubidecarenone 100 mg oral tablet (5 sources) ubidecarenone (C OENZYME Q10) 100 mg tab Take by mouth. Active Problems Active Problems Problem Classification Problem Date Documented Da te Episodic/Chronic Headache; including migraine (12 sources) Migraine without aura; Translations: [Migraine without aura, not intractable, without status migrainosus] Onset: 09-25-2003 01-20-2010 Chronic Malaise and fatigue (3 sources) Malaise and fatigue; Translations: [Other malaise] Onset: 12-06-2023 12-06-2023 Episodic Miscellaneous mental health disorders (6 sources) Bruxism (teeth grinding); Translations: [Other somatoform disorders] Onset: 03-04-2009 03-04-2009 Chronic Nutritional deficiencies (2 sources) Vitamin D deficiency; Translations: [Vitamin D deficiency, unspecified] Onset: 12-06-2023 12-06-2023 Chronic Osteoarthritis (2 sources) Degenerative joint disease involving multiple joints; Translations: [Primary generalized (osteo)arthritis] Onset: 12-06-2023 12-06-2023 Chronic Osteoporosis (2 sources) Osteoporosis; Translations: [Age-related osteoporosis without current pathological fracture] Onset: 12-06-2023 12-06-2023 Chronic Other connective tissue disease (1 source) Fibromyalgia; Translations: [Fibromyalgia] 12-06-2023 Episodic Other connective tissue disease (1 source) Fibromyalgia; Translations: [Fibromyalgia] Onset: 12-06-2023 Episodic Other non-traumatic joint disorders (3 sources) Multiple joint pain; Translations: [Pain in unspecified joint] 12-06-2023 Episodic Other non-traumatic joint disorders (1 source) Pain in unspecified joint; Translations: [Pain in joint, multiple sites] Onset: 12-06-2023 Episodic Rheumatoid arthritis and related disease (8 sources) Inflammatory polyarthropathy; Translations: [Inflammatory polyarthropathy] Onset: 08-13-2015 08-13-2015 Chronic Past or Other Problems Problem Classification Problem Date Documented Da te Episodic/Chronic Other connective tissue disease (6 sources) Muscle pain; Translations: [Myalgia and myositis, unspecified] Onset: 10-05-2005 01-20-2010 Episodic Results Test Name Value Interpretation Reference Range Facility [facility] 01-14-2024 [facility] Telephone (RHBATH) KAINJIE Quiroz ([id number]) 1950 F Date Time Provider Department 01/14/24 INEZ CHADWICK [facility] During your visit today, we recorded the following information about you: Lamonte Pedersen LPN 01/14/2024 1:01 PM Addendum ----- Message from Bre Vera sent at 01/14/2024 12:36 PM EDT ----- Regarding: Daniel/ Dr. Yu MD/ Question Subject Line Format: Daniel/ Dr. Yu MD/ Question = Patient: Jie Lr Date of : 1950 Primary Care Provider: Horacio Ivey MD Patient has been identified by name and Date of (Y/N): y Patient: Jie Lr Date of : 1950 Provider for this encounter: Horacio Ivey MD Reason for the call/escalation: Question Was Patient Referred to /Seek Emergency Treatment (Y/N): n Did Patient Agree (Y/N): n Was An Attempt Made To Transfer The Patient To The Office (Y/N): n Were You Able To Reach Someone At The Office (Y/N): n If Yes - Patient Was Transferred To (Caregivers Name): n If No - Which [facility] Leadership Mathematics Education Professor Did You Speak With Regarding This Patient: n Was an appointment scheduled (Y/N): y Reason patient was requesting visit (RFV/signs and symptoms/diagnosis) : pt had a question for Dr. Chadwick, she states she is seeing her pcp soon and wanted to know if she should see her pcp for her rheumatology medications or should she get her medications from Dr. Chadwick Person calling if other than patient: no Return call to if other than patient: no Best contact number: [phone] Thank you, Bre Castrejon January 14, 2024 12:36 PM Lamonte Pedersen LPN 01/14/2024 1:20 PM Signed Patient called for refill on Plaquenil. This will be a new prescription from our office. Previously prescribed by former [employer]. Patient was getting the prescription from [place] with instructions to take daily, but she reports the dose below. Patient is taking Plaquenil 200 mg PO and she has been alternating one tablet (200 mg) and two tablets (400 mg) every other day. Patient last appointment: 12/29/2023 Next Appointment: 04/24/2024 Request is for script(s) to be escript to pharmacy. [facility] - [place] [id number] - [address] [place] [address] [place], [place] [id number] NANCIE Post Amanda K, PA-C 01/14/2024 5:59 PM Signed Addended by: SIMON MCPHERSON on: 01/14/2024 05:59 PM Modules accepted: Orders Allergies As of Date: 01/14/2024 Noted Allergy Reaction DUST MITES 08/13/2015 2 - Rash Date Reviewed: 08/13/2015 Reviewed by: Robert Weiss (Ct)(Hist), CT - Fully Assessed Reason for Visit: Refill Request [94] Cmt: New Prescription for Plaquenil Primary Visit Diagnosis:Inflammatory polyarthropathy (HCC) [M06.4] Order(s):hydrOXYchloro QUINE (PLAQUENIL) 200 mg tabletAlternate 200 mg and 400 mg every other dayDisp: 135 tabletRfl: 0 Prescriptions as of 01/14/2024 - hydrOXYchloroQUINE (PLAQUENIL) 200 mg tablet Alternate 200 mg and 400 mg every other day - galcanezumab-gnlm (EMGALITY PEN SUBCUTANEOUS) Inject subcutaneously. - ubidecarenone (COENZYME Q10) 100 mg tab Take by mouth. - calcium carbonate/vitamin D3 (CALTRATE 600 PLUS D ORAL) Take by mouth. - mv-mn/folic ac/calcium/vit K1 (WOMEN'S 50 PLUS MULTIVITAMIN ORAL) Take by mouth. - duloxetine HCl (CYMBALTA ORAL) Take 30 mg by mouth. - rosuvastatin (CRESTOR) 5 mg tablet Take 5 mg by mouth. Every three days - omeprazole (PRILOSEC) 20 mg capsule Take 20 mg by mouth once daily. - Aspirin-Caffeine 400-32 mg tab Take by mouth as needed. - jepvmozdxd-wjxfqtm-tzf feine-codeine (FIORINAL WITH CODEINE) capsule Take 1 capsule by mouth every 4 hours as needed. - rizatriptan (MAXALT PLODDING OPERATOR) 5 mg disintegrating tablet Take 5 mg by mouth as needed. May repeat in 2 hours if needed - DINORAH 60 MG CAP 60 mg. - Cholecalciferol, Vitamin D3, 2,000 unit cap Take by mouth once daily. - naproxen sodium(ALEVE 220 MG TAB) Take one(1) tablet twice daily. - SYNTHROID 125MCG TABLET Take one(1) tablet daily. Problem List As Of Date 01/14/2024 Noted Resolved 1.1 MIGRAINE W/O AURA, W/O INTRACTIBLE [346.10]*09/25/2003 COMMON MIGRAINE INTRACTABLE [G43.019] 08/17/2005 MYALGIA AND MYOSITIS NOS [CAL4834] 10/05/2005 Bruxism [F45.8] 03/04/2009 Inflammatory polyarthropathy (HCC) [M06.4] 08/13/2015 Prescriptions ordered this encounter Disp Refills Start End HYDROXYCHLOROQUINE 200 MG TABLET 135 * 0 01/14/2024 Sig: Alternate 200 mg and 400 mg every other day Medications Discontinued During This Encounter Prescriptions - hydroxychloroquine (PLAQUENIL) 200 mg tablet (Discontinued) Take 200 mg by mouth once daily. Encounter Status:Closed by LAMONTE PEDERSEN on 01/14/24 [facility] Mikaela 01-04-2024 CNPN Telephone (AGSPINE3) JIE LR ([id number]) 1950 F Date Time Provider Department 01/04/24 MONIKA HERNANDEZ AGSPINE3 During your visit today, we recorded the following information about you: Lorena Pham 01/04/2024 1:40 PM Signed 01/03- Received a referral from for patient to be seen by pain management for pain in joints, LV to schedule. Lorena Pham Allergies As of Date: 01/04/2024 Noted Allergy Reaction DUST MITES 08/13/2015 2 - Rash Date Reviewed: 08/13/2015 Reviewed by: Robert Weiss (Ct)(Hist), CT - Fully Assessed Prescriptions as of 01/04/2024 - galcanezumab-gnlm (EMGALITY PEN SUBCUTANEOUS) Inject subcutaneously. - ubidecarenone (COENZYME Q10) 100 mg tab Take by mouth. - calcium carbonate/vitamin D3 (CALTRATE 600 PLUS D ORAL) Take by mouth. - mv-mn/folic ac/calcium/vit K1 (WOMEN'S 50 PLUS MULTIVITAMIN ORAL) Take by mouth. - duloxetine HCl (CYMBALTA ORAL) Take 30 mg by mouth. - rosuvastatin (CRESTOR) 5 mg tablet Take 5 mg by mouth. Every three days - omeprazole (PRILOSEC) 20 mg capsule Take 20 mg by mouth once daily. - Aspirin-Caffeine 400-32 mg tab Take by mouth as needed. - hvmmijviap-ehwouso-pya feine-codeine (FIORINAL WITH CODEINE) capsule Take 1 capsule by mouth every 4 hours as needed. - rizatriptan (MAXALT PLODDING OPERATOR) 5 mg disintegrating tablet Take 5 mg by mouth as needed. May repeat in 2 hours if needed - DINORAH 60 MG CAP 60 mg. - hydroxychloroquine (PLAQUENIL) 200 mg tablet Take 200 mg by mouth once daily. - Cholecalciferol, Vitamin D3, 2,000 unit cap Take by mouth once daily. - naproxen sodium(ALEVE 220 MG TAB) Take one(1) tablet twice daily. - SYNTHROID 125MCG TABLET Take one(1) tablet daily. Problem List As Of Date 01/04/2024 Noted Resolved 1.1 MIGRAINE W/O AURA, W/O INTRACTIBLE [346.10]*09/25/2003 COMMON MIGRAINE INTRACTABLE [G43.019] 08/17/2005 MYALGIA AND MYOSITIS NOS [[id number]] 10/05/2005 Bruxism [F45.8] 03/04/2009 Inflammatory polyarthropathy (HCC) [M06.4] 08/13/2015 Encounter Status:Closed by LORENA PHAM on 01/04/24 [facility] No Panel Informationon 12-06 IMPRESSION: See above. Distance Learning Unit Leader: VIV Transcribe Date/Time: Dec 07 2023 10:10A Dictated by : JEANETTE LUBIN MD This examination was interpreted and the report reviewed and electronically signed by: JEANETTE LUBIN MD on Dec 07 2023 10:17AM [facility] No Panel InformationOrdered By: Ccf Provider on 12-07-2023 [facility] XR Cervical spine AP and Lat eralon 12-07-2023 * * *Final Report* * * DATE OF EXAM: Dec 06 2023 3:13PM [id number] - XR CERVICAL 2V AP/LAT / PROCEDURE REASON: Pain in joint, multiple sites * * * * Physician Interpretation * * * * EXAM TITLE: XR HIP 3V PELV+ AP/LAT RT, XR HAND 3V PA/LAT/OBL RT, XR HAND 3V PA/LAT/OBL LT, XR KNEE SURVEY 1V AP ROSITA, XR HIP 3V PELV+ AP/LAT LT, XR CERVICAL 2V AP/LAT, XR SHLDR >/=3V AP/EUFEMIA AP/OTHR RT, XR SHLDR >/=3V AP/EUFEMIA AP/OTHR LT, XR LUMBAR 3V AP/LAT/L5-S1, XR SI JTS 2V AP PELV/AKINS DATE: 12/07/2023 10:10 AM INDICATION: Pain in multiple joints COMPARISON: None. FINDINGS: AP pelvis and both hips: No fracture or dislocation. No acute joint or soft tissue abnormality. Few pelvic vascular calcifications. 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 Milder osteoarthritis at the interphalangeal joints otherwise. No erosions. No fractures or dislocations. No soft tissue abnormality. AP view of the knees: Joint spaces are symmetrically maintained. No acute bone or soft tissue abnormality otherwise. Bilateral shoulders: No fracture or dislocation. No joint or soft tissue abnormality. Cervical spine: Moderate degenerative disc disease at C5-6. Mild multilevel facet joint arthrosis. No fracture or dislocation. No acute soft tissue abnormality. Lumbar spine: Moderately advanced degenerative disc disease at L5-S1. Moderate facet joint arthrosis at L4-5 and L5-S1. No fracture or dislocation. Normal alignment. No acute soft tissue abnormality. Sacroiliac joints: The sacroiliac joints are symmetric without evidence for erosions, fractures, or dislocations. The soft tissues are normal. [facility] Provider, [facility] - 12/07/2023 * * *Final Report* * * DATE OF EXAM: Dec 06 2023 3:13PM [id number] - XR CERVICAL 2V AP/LAT / PROCEDURE REASON: Pain in joint, multiple sites * * * * Physician Interpretation * * * * EXAM TITLE: XR HIP 3V PELV+ AP/LAT RT, XR HAND 3V PA/LAT/OBL RT, XR HAND 3V PA/LAT/OBL LT, XR KNEE SURVEY 1V AP ROSITA, XR HIP 3V PELV+ AP/LAT LT, XR CERVICAL 2V AP/LAT, XR SHLDR >/=3V AP/EUFEMIA AP/OTHR RT, XR SHLDR >/=3V AP/EUFEMIA AP/OTHR LT, XR LUMBAR 3V AP/LAT/L5-S1, XR SI JTS 2V AP PELV/AKINS DATE: 12/07/2023 10:10 AM INDICATION: Pain in multiple joints COMPARISON: None. FINDINGS: AP pelvis and both hips: No fracture or dislocation. No acute joint or soft tissue abnormality. Few pelvic vascular calcifications. 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 Milder osteoarthritis at the interphalangeal joints otherwise. No erosions. No fractures or dislocations. No soft tissue abnormality. AP view of the knees: Joint spaces are symmetrically maintained. No acute bone or soft tissue abnormality otherwise. Bilateral shoulders: No fracture or dislocation. No joint or soft tissue abnormality. Cervical spine: Moderate degenerative disc disease at C5-6. Mild multilevel facet joint arthrosis. No fracture or dislocation. No acute soft tissue abnormality. Lumbar spine: Moderately advanced degenerative disc disease at L5-S1. Moderate facet joint arthrosis at L4-5 and L5-S1. No fracture or dislocation. Normal alignment. No acute soft tissue abnormality. Sacroiliac joints: The sacroiliac joints are symmetric without evidence for erosions, fractures, or dislocations. The soft tissues are normal. IMPRESSION IMPRESSION: See above. Distance Learning Unit Leader: Persado Transcribe Date/Time: Dec 07 2023 10:10A Dictated by : JEANETTE LUBIN MD This examination was interpreted and the report reviewed and electronically signed by: JEANETTE LUBIN MD on Dec 07 2023 10:17AM EST [facility] XR Hand - left PA and Latera l and Obliqueon 12-07-2023 * * *Final Report* * * DATE OF EXAM: Dec 06 2023 3:13PM [id number] - XR HAND 3V PA/LAT/OBL LT / PROCEDURE REASON: Pain in joint, multiple sites * * * * Physician Interpretation * * * * EXAM TITLE: XR HIP 3V PELV+ AP/LAT RT, XR HAND 3V PA/LAT/OBL RT, XR HAND 3V PA/LAT/OBL LT, XR KNEE SURVEY 1V AP ROSITA, XR HIP 3V PELV+ AP/LAT LT, XR CERVICAL 2V AP/LAT, XR SHLDR >/=3V AP/EUFEMIA AP/OTHR RT, XR SHLDR >/=3V AP/EUFEMIA AP/OTHR LT, XR LUMBAR 3V AP/LAT/L5-S1, XR SI JTS 2V AP PELV/AKINS DATE: 12/07/2023 10:10 AM INDICATION: Pain in multiple joints COMPARISON: None. FINDINGS: AP pelvis and both hips: No fracture or dislocation. No acute joint or soft tissue abnormality. Few pelvic vascular calcifications. 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 Milder osteoarthritis at the interphalangeal joints otherwise. No erosions. No fractures or dislocations. No soft tissue abnormality. AP view of the knees: Joint spaces are symmetrically maintained. No acute bone or soft tissue abnormality otherwise. Bilateral shoulders: No fracture or dislocation. No joint or soft tissue abnormality. Cervical spine: Moderate degenerative disc disease at C5-6. Mild multilevel facet joint arthrosis. No fracture or dislocation. No acute soft tissue abnormality. Lumbar spine: Moderately advanced degenerative disc disease at L5-S1. Moderate facet joint arthrosis at L4-5 and L5-S1. No fracture or dislocation. Normal alignment. No acute soft tissue abnormality. Sacroiliac joints: The sacroiliac joints are symmetric without evidence for erosions, fractures, or dislocations. The soft tissues are normal. [facility] Provider, [facility] - 12/07/2023 * * *Final Report* * * DATE OF EXAM: Dec 06 2023 3:13PM [id number] - XR HAND 3V PA/LAT/OBL LT / PROCEDURE REASON: Pain in joint, multiple sites * * * * Physician Interpretation * * * * EXAM TITLE: XR HIP 3V PELV+ AP/LAT RT, XR HAND 3V PA/LAT/OBL RT, XR HAND 3V PA/LAT/OBL LT, XR KNEE SURVEY 1V AP ROSITA, XR HIP 3V PELV+ AP/LAT LT, XR CERVICAL 2V AP/LAT, XR SHLDR >/=3V AP/EUFEMIA AP/OTHR RT, XR SHLDR >/=3V AP/EUFEMIA AP/OTHR LT, XR LUMBAR 3V AP/LAT/L5-S1, XR SI JTS 2V AP PELV/AKINS DATE: 12/07/2023 10:10 AM INDICATION: Pain in multiple joints COMPARISON: None. FINDINGS: AP pelvis and both hips: No fracture or dislocation. No acute joint or soft tissue abnormality. Few pelvic vascular calcifications. 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 Milder osteoarthritis at the interphalangeal joints otherwise. No erosions. No fractures or dislocations. No soft tissue abnormality. AP view of the knees: Joint spaces are symmetrically maintained. No acute bone or soft tissue abnormality otherwise. Bilateral shoulders: No fracture or dislocation. No joint or soft tissue abnormality. Cervical spine: Moderate degenerative disc disease at C5-6. Mild multilevel facet joint arthrosis. No fracture or dislocation. No acute soft tissue abnormality. Lumbar spine: Moderately advanced degenerative disc disease at L5-S1. Moderate facet joint arthrosis at L4-5 and L5-S1. No fracture or dislocation. Normal alignment. No acute soft tissue abnormality. Sacroiliac joints: The sacroiliac joints are symmetric without evidence for erosions, fractures, or dislocations. The soft tissues are normal. IMPRESSION IMPRESSION: See above. Distance Learning Unit Leader: VIV Transcribe Date/Time: Dec 07 2023 10:10A Dictated by : JEANETTE LUBIN MD This examination was interpreted and the report reviewed and electronically signed by: JEANETTE LUBIN MD on Dec 07 2023 10:17AM [facility] XR Hand - right PA and Later al and Obliqueon 12-07-2023 * * *Final Report* * * DATE OF EXAM: Dec 06 2023 3:13PM [id number] - XR HAND 3V PA/LAT/OBL RT / PROCEDURE REASON: Pain in joint, multiple sites * * * * Physician Interpretation * * * * EXAM TITLE: XR HIP 3V PELV+ AP/LAT RT, XR HAND 3V PA/LAT/OBL RT, XR HAND 3V PA/LAT/OBL LT, XR KNEE SURVEY 1V AP ROSITA, XR HIP 3V PELV+ AP/LAT LT, XR CERVICAL 2V AP/LAT, XR SHLDR >/=3V AP/EUFEMIA AP/OTHR RT, XR SHLDR >/=3V AP/EUFEMIA AP/OTHR LT, XR LUMBAR 3V AP/LAT/L5-S1, XR SI JTS 2V AP PELV/AKINS DATE: 12/07/2023 10:10 AM INDICATION: Pain in multiple joints COMPARISON: None. FINDINGS: AP pelvis and both hips: No fracture or dislocation. No acute joint or soft tissue abnormality. Few pelvic vascular calcifications. 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 Milder osteoarthritis at the interphalangeal joints otherwise. No erosions. No fractures or dislocations. No soft tissue abnormality. AP view of the knees: Joint spaces are symmetrically maintained. No acute bone or soft tissue abnormality otherwise. Bilateral shoulders: No fracture or dislocation. No joint or soft tissue abnormality. Cervical spine: Moderate degenerative disc disease at C5-6. Mild multilevel facet joint arthrosis. No fracture or dislocation. No acute soft tissue abnormality. Lumbar spine: Moderately advanced degenerative disc disease at L5-S1. Moderate facet joint arthrosis at L4-5 and L5-S1. No fracture or dislocation. Normal alignment. No acute soft tissue abnormality. Sacroiliac joints: The sacroiliac joints are symmetric without evidence for erosions, fractures, or dislocations. The soft tissues are normal. [facility] Provider, [facility] - 12/07/2023 * * *Final Report* * * DATE OF EXAM: Dec 06 2023 3:13PM [id number] - XR HAND 3V PA/LAT/OBL RT / PROCEDURE REASON: Pain in joint, multiple sites * * * * Physician Interpretation * * * * EXAM TITLE: XR HIP 3V PELV+ AP/LAT RT, XR HAND 3V PA/LAT/OBL RT, XR HAND 3V PA/LAT/OBL LT, XR KNEE SURVEY 1V AP ROSITA, XR HIP 3V PELV+ AP/LAT LT, XR CERVICAL 2V AP/LAT, XR SHLDR >/=3V AP/EUFEMIA AP/OTHR RT, XR SHLDR >/=3V AP/EUFEMIA AP/OTHR LT, XR LUMBAR 3V AP/LAT/L5-S1, XR SI JTS 2V AP PELV/AKINS DATE: 12/07/2023 10:10 AM INDICATION: Pain in multiple joints COMPARISON: None. FINDINGS: AP pelvis and both hips: No fracture or dislocation. No acute joint or soft tissue abnormality. Few pelvic vascular calcifications. 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 Milder osteoarthritis at the interphalangeal joints otherwise. No erosions. No fractures or dislocations. No soft tissue abnormality. AP view of the knees: Joint spaces are symmetrically maintained. No acute bone or soft tissue abnormality otherwise. Bilateral shoulders: No fracture or dislocation. No joint or soft tissue abnormality. Cervical spine: Moderate degenerative disc disease at C5-6. Mild multilevel facet joint arthrosis. No fracture or dislocation. No acute soft tissue abnormality. Lumbar spine: Moderately advanced degenerative disc disease at L5-S1. Moderate facet joint arthrosis at L4-5 and L5-S1. No fracture or dislocation. Normal alignment. No acute soft tissue abnormality. Sacroiliac joints: The sacroiliac joints are symmetric without evidence for erosions, fractures, or dislocations. The soft tissues are normal. IMPRESSION IMPRESSION: See above. Distance Learning Unit Leader: VIV Transcribe Date/Time: Dec 07 2023 10:10A Dictated by : JEANETTE LUBIN MD This examination was interpreted and the report reviewed and electronically signed by: JEANETTE LUBIN MD on Dec 07 2023 10:17AM EST [facility] XR Knee - bilateral APon * * *Final Report* * * DATE OF EXAM: Dec 06 2023 3:13PM [id number] - XR KNEE SURVEY 1V AP ROSITA / PROCEDURE REASON: Pain in joint, multiple sites * * * * Physician Interpretation * * * * EXAM TITLE: XR HIP 3V PELV+ AP/LAT RT, XR HAND 3V PA/LAT/OBL RT, XR HAND 3V PA/LAT/OBL LT, XR KNEE SURVEY 1V AP ROSITA, XR HIP 3V PELV+ AP/LAT LT, XR CERVICAL 2V AP/LAT, XR SHLDR >/=3V AP/EUFEMIA AP/OTHR RT, XR SHLDR >/=3V AP/EUFEMIA AP/OTHR LT, XR LUMBAR 3V AP/LAT/L5-S1, XR SI JTS 2V AP PELV/AKINS DATE: 12/07/2023 10:10 AM INDICATION: Pain in multiple joints COMPARISON: None. FINDINGS: AP pelvis and both hips: No fracture or dislocation. No acute joint or soft tissue abnormality. Few pelvic vascular calcifications. 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 Milder osteoarthritis at the interphalangeal joints otherwise. No erosions. No fractures or dislocations. No soft tissue abnormality. AP view of the knees: Joint spaces are symmetrically maintained. No acute bone or soft tissue abnormality otherwise. Bilateral shoulders: No fracture or dislocation. No joint or soft tissue abnormality. Cervical spine: Moderate degenerative disc disease at C5-6. Mild multilevel facet joint arthrosis. No fracture or dislocation. No acute soft tissue abnormality. Lumbar spine: Moderately advanced degenerative disc disease at L5-S1. Moderate facet joint arthrosis at L4-5 and L5-S1. No fracture or dislocation. Normal alignment. No acute soft tissue abnormality. Sacroiliac joints: The sacroiliac joints are symmetric without evidence for erosions, fractures, or dislocations. The soft tissues are normal. [facility] Provider, [facility] - 12/07/2023 * * *Final Report* * * DATE OF EXAM: Dec 06 2023 3:13PM [id number] - XR KNEE SURVEY 1V AP ROSITA / PROCEDURE REASON: Pain in joint, multiple sites * * * * Physician Interpretation * * * * EXAM TITLE: XR HIP 3V PELV+ AP/LAT RT, XR HAND 3V PA/LAT/OBL RT, XR HAND 3V PA/LAT/OBL LT, XR KNEE SURVEY 1V AP ROSITA, XR HIP 3V PELV+ AP/LAT LT, XR CERVICAL 2V AP/LAT, XR SHLDR >/=3V AP/EUFEMIA AP/OTHR RT, XR SHLDR >/=3V AP/EUFEMIA AP/OTHR LT, XR LUMBAR 3V AP/LAT/L5-S1, XR SI JTS 2V AP PELV/AKINS DATE: 12/07/2023 10:10 AM INDICATION: Pain in multiple joints COMPARISON: None. FINDINGS: AP pelvis and both hips: No fracture or dislocation. No acute joint or soft tissue abnormality. Few pelvic vascular calcifications. 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 Milder osteoarthritis at the interphalangeal joints otherwise. No erosions. No fractures or dislocations. No soft tissue abnormality. AP view of the knees: Joint spaces are symmetrically maintained. No acute bone or soft tissue abnormality otherwise. Bilateral shoulders: No fracture or dislocation. No joint or soft tissue abnormality. Cervical spine: Moderate degenerative disc disease at C5-6. Mild multilevel facet joint arthrosis. No fracture or dislocation. No acute soft tissue abnormality. Lumbar spine: Moderately advanced degenerative disc disease at L5-S1. Moderate facet joint arthrosis at L4-5 and L5-S1. No fracture or dislocation. Normal alignment. No acute soft tissue abnormality. Sacroiliac joints: The sacroiliac joints are symmetric without evidence for erosions, fractures, or dislocations. The soft tissues are normal. IMPRESSION IMPRESSION: See above. Distance Learning Unit Leader: PSCB Transcribe Date/Time: Dec 07 2023 10:10A Dictated by : JEANETTE LUBIN MD This examination was interpreted and the report reviewed and electronically signed by: JEANETTE LUBIN MD on Dec 07 2023 10:17AM [facility] XR Lumbar spine 3 Viewson * * *Final Report* * * DATE OF EXAM: Dec 06 2023 3:13PM [id number] - XR LUMBAR 3V AP/LAT/L5-S1 / PROCEDURE REASON: Pain in joint, multiple sites * * * * Physician Interpretation * * * * EXAM TITLE: XR HIP 3V PELV+ AP/LAT RT, XR HAND 3V PA/LAT/OBL RT, XR HAND 3V PA/LAT/OBL LT, XR KNEE SURVEY 1V AP ROSITA, XR HIP 3V PELV+ AP/LAT LT, XR CERVICAL 2V AP/LAT, XR SHLDR >/=3V AP/EUFEMIA AP/OTHR RT, XR SHLDR >/=3V AP/EUFEMIA AP/OTHR LT, XR LUMBAR 3V AP/LAT/L5-S1, XR SI JTS 2V AP PELV/AKINS DATE: 12/07/2023 10:10 AM INDICATION: Pain in multiple joints COMPARISON: None. FINDINGS: AP pelvis and both hips: No fracture or dislocation. No acute joint or soft tissue abnormality. Few pelvic vascular calcifications. 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 Milder osteoarthritis at the interphalangeal joints otherwise. No erosions. No fractures or dislocations. No soft tissue abnormality. AP view of the knees: Joint spaces are symmetrically maintained. No acute bone or soft tissue abnormality otherwise. Bilateral shoulders: No fracture or dislocation. No joint or soft tissue abnormality. Cervical spine: Moderate degenerative disc disease at C5-6. Mild multilevel facet joint arthrosis. No fracture or dislocation. No acute soft tissue abnormality. Lumbar spine: Moderately advanced degenerative disc disease at L5-S1. Moderate facet joint arthrosis at L4-5 and L5-S1. No fracture or dislocation. Normal alignment. No acute soft tissue abnormality. Sacroiliac joints: The sacroiliac joints are symmetric without evidence for erosions, fractures, or dislocations. The soft tissues are normal. [facility] Provider, [facility] - 12/07/2023 * * *Final Report* * * DATE OF EXAM: Dec 06 2023 3:13PM [id number] - XR LUMBAR 3V AP/LAT/L5-S1 / PROCEDURE REASON: Pain in joint, multiple sites * * * * Physician Interpretation * * * * EXAM TITLE: XR HIP 3V PELV+ AP/LAT RT, XR HAND 3V PA/LAT/OBL RT, XR HAND 3V PA/LAT/OBL LT, XR KNEE SURVEY 1V AP ROSITA, XR HIP 3V PELV+ AP/LAT LT, XR CERVICAL 2V AP/LAT, XR SHLDR >/=3V AP/EUFEMIA AP/OTHR RT, XR SHLDR >/=3V AP/EUFEMIA AP/OTHR LT, XR LUMBAR 3V AP/LAT/L5-S1, XR SI JTS 2V AP PELV/AKINS DATE: 12/07/2023 10:10 AM INDICATION: Pain in multiple joints COMPARISON: None. FINDINGS: AP pelvis and both hips: No fracture or dislocation. No acute joint or soft tissue abnormality. Few pelvic vascular calcifications. 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 Milder osteoarthritis at the interphalangeal joints otherwise. No erosions. No fractures or dislocations. No soft tissue abnormality. AP view of the knees: Joint spaces are symmetrically maintained. No acute bone or soft tissue abnormality otherwise. Bilateral shoulders: No fracture or dislocation. No joint or soft tissue abnormality. Cervical spine: Moderate degenerative disc disease at C5-6. Mild multilevel facet joint arthrosis. No fracture or dislocation. No acute soft tissue abnormality. Lumbar spine: Moderately advanced degenerative disc disease at L5-S1. Moderate facet joint arthrosis at L4-5 and L5-S1. No fracture or dislocation. Normal alignment. No acute soft tissue abnormality. Sacroiliac joints: The sacroiliac joints are symmetric without evidence for erosions, fractures, or dislocations. The soft tissues are normal. IMPRESSION IMPRESSION: See above. Distance Learning Unit Leader: VIV Transcribe Date/Time: Dec 07 2023 10:10A Dictated by : JEANETTE LUBIN MD This examination was interpreted and the report reviewed and electronically signed by: JEANETTE LUBIN MD on Dec 07 2023 10:17AM [facility] XR Pelvis and Hip - left AP and Lateral frogon 12-07-2023 * * *Final Report* * * DATE OF EXAM: Dec 06 2023 3:13PM [id number] - XR HIP 3V PELV+ AP/LAT LT / PROCEDURE REASON: Pain in joint, multiple sites * * * * Physician Interpretation * * * * EXAM TITLE: XR HIP 3V PELV+ AP/LAT RT, XR HAND 3V PA/LAT/OBL RT, XR HAND 3V PA/LAT/OBL LT, XR KNEE SURVEY 1V AP ROSITA, XR HIP 3V PELV+ AP/LAT LT, XR CERVICAL 2V AP/LAT, XR SHLDR >/=3V AP/EUFEMIA AP/OTHR RT, XR SHLDR >/=3V AP/EUFEMIA AP/OTHR LT, XR LUMBAR 3V AP/LAT/L5-S1, XR SI JTS 2V AP PELV/AKINS DATE: 12/07/2023 10:10 AM INDICATION: Pain in multiple joints COMPARISON: None. FINDINGS: AP pelvis and both hips: No fracture or dislocation. No acute joint or soft tissue abnormality. Few pelvic vascular calcifications. 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 Milder osteoarthritis at the interphalangeal joints otherwise. No erosions. No fractures or dislocations. No soft tissue abnormality. AP view of the knees: Joint spaces are symmetrically maintained. No acute bone or soft tissue abnormality otherwise. Bilateral shoulders: No fracture or dislocation. No joint or soft tissue abnormality. Cervical spine: Moderate degenerative disc disease at C5-6. Mild multilevel facet joint arthrosis. No fracture or dislocation. No acute soft tissue abnormality. Lumbar spine: Moderately advanced degenerative disc disease at L5-S1. Moderate facet joint arthrosis at L4-5 and L5-S1. No fracture or dislocation. Normal alignment. No acute soft tissue abnormality. Sacroiliac joints: The sacroiliac joints are symmetric without evidence for erosions, fractures, or dislocations. The soft tissues are normal. [facility], [facility] [place] - 12/07/2023 * * *Final Report* * * DATE OF EXAM: Dec 06 2023 3:13PM [id number] - XR HIP 3V PELV+ AP/LAT LT / PROCEDURE REASON: Pain in joint, multiple sites * * * * Physician Interpretation * * * * EXAM TITLE: XR HIP 3V PELV+ AP/LAT RT, XR HAND 3V PA/LAT/OBL RT, XR HAND 3V PA/LAT/OBL LT, XR KNEE SURVEY 1V AP ROSITA, XR HIP 3V PELV+ AP/LAT LT, XR CERVICAL 2V AP/LAT, XR SHLDR >/=3V AP/EUFEMIA AP/OTHR RT, XR SHLDR >/=3V AP/EUFEMIA AP/OTHR LT, XR LUMBAR 3V AP/LAT/L5-S1, XR SI JTS 2V AP PELV/AKINS DATE: 12/07/2023 10:10 AM INDICATION: Pain in multiple joints COMPARISON: None. FINDINGS: AP pelvis and both hips: No fracture or dislocation. No acute joint or soft tissue abnormality. Few pelvic vascular calcifications. 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 Milder osteoarthritis at the interphalangeal joints otherwise. No erosions. No fractures or dislocations. No soft tissue abnormality. AP view of the knees: Joint spaces are symmetrically maintained. No acute bone or soft tissue abnormality otherwise. Bilateral shoulders: No fracture or dislocation. No joint or soft tissue abnormality. Cervical spine: Moderate degenerative disc disease at C5-6. Mild multilevel facet joint arthrosis. No fracture or dislocation. No acute soft tissue abnormality. Lumbar spine: Moderately advanced degenerative disc disease at L5-S1. Moderate facet joint arthrosis at L4-5 and L5-S1. No fracture or dislocation. Normal alignment. No acute soft tissue abnormality. Sacroiliac joints: The sacroiliac joints are symmetric without evidence for erosions, fractures, or dislocations. The soft tissues are normal. IMPRESSION IMPRESSION: See above. Distance Learning Unit Leader: VIV Transcribe Date/Time: Dec 07 2023 10:10A Dictated by : JEANETTE LUBIN MD This examination was interpreted and the report reviewed and electronically signed by: JEANETTE LUBIN MD on Dec 07 2023 10:17AM [facility] XR Pelvis and Hip - right AP and Lateral frogon 12-07-2023 * * *Final Report* * * DATE OF EXAM: Dec 06 2023 3:13PM [id number] - XR HIP 3V PELV+ AP/LAT RT / PROCEDURE REASON: Pain in joint, multiple sites * * * * Physician Interpretation * * * * EXAM TITLE: XR HIP 3V PELV+ AP/LAT RT, XR HAND 3V PA/LAT/OBL RT, XR HAND 3V PA/LAT/OBL LT, XR KNEE SURVEY 1V AP ROSITA, XR HIP 3V PELV+ AP/LAT LT, XR CERVICAL 2V AP/LAT, XR SHLDR >/=3V AP/EUFEMIA AP/OTHR RT, XR SHLDR >/=3V AP/EUFEMIA AP/OTHR LT, XR LUMBAR 3V AP/LAT/L5-S1, XR SI JTS 2V AP PELV/AKINS DATE: 12/07/2023 10:10 AM INDICATION: Pain in multiple joints COMPARISON: None. FINDINGS: AP pelvis and both hips: No fracture or dislocation. No acute joint or soft tissue abnormality. Few pelvic vascular calcifications. 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 Milder osteoarthritis at the interphalangeal joints otherwise. No erosions. No fractures or dislocations. No soft tissue abnormality. AP view of the knees: Joint spaces are symmetrically maintained. No acute bone or soft tissue abnormality otherwise. Bilateral shoulders: No fracture or dislocation. No joint or soft tissue abnormality. Cervical spine: Moderate degenerative disc disease at C5-6. Mild multilevel facet joint arthrosis. No fracture or dislocation. No acute soft tissue abnormality. Lumbar spine: Moderately advanced degenerative disc disease at L5-S1. Moderate facet joint arthrosis at L4-5 and L5-S1. No fracture or dislocation. Normal alignment. No acute soft tissue abnormality. Sacroiliac joints: The sacroiliac joints are symmetric without evidence for erosions, fractures, or dislocations. The soft tissues are normal. [facility] Provider, [facility] [place] - 12/07/2023 * * *Final Report* * * DATE OF EXAM: Dec 06 2023 3:13PM [id number] - XR HIP 3V PELV+ AP/LAT RT / PROCEDURE REASON: Pain in joint, multiple sites * * * * Physician Interpretation * * * * EXAM TITLE: XR HIP 3V PELV+ AP/LAT RT, XR HAND 3V PA/LAT/OBL RT, XR HAND 3V PA/LAT/OBL LT, XR KNEE SURVEY 1V AP ROSITA, XR HIP 3V PELV+ AP/LAT LT, XR CERVICAL 2V AP/LAT, XR SHLDR >/=3V AP/EUFEMIA AP/OTHR RT, XR SHLDR >/=3V AP/EUFEMIA AP/OTHR LT, XR LUMBAR 3V AP/LAT/L5-S1, XR SI JTS 2V AP PELV/AKINS DATE: 12/07/2023 10:10 AM INDICATION: Pain in multiple joints COMPARISON: None. FINDINGS: AP pelvis and both hips: No fracture or dislocation. No acute joint or soft tissue abnormality. Few pelvic vascular calcifications. 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 Milder osteoarthritis at the interphalangeal joints otherwise. No erosions. No fractures or dislocations. No soft tissue abnormality. AP view of the knees: Joint spaces are symmetrically maintained. No acute bone or soft tissue abnormality otherwise. Bilateral shoulders: No fracture or dislocation. No joint or soft tissue abnormality. Cervical spine: Moderate degenerative disc disease at C5-6. Mild multilevel facet joint arthrosis. No fracture or dislocation. No acute soft tissue abnormality. Lumbar spine: Moderately advanced degenerative disc disease at L5-S1. Moderate facet joint arthrosis at L4-5 and L5-S1. No fracture or dislocation. Normal alignment. No acute soft tissue abnormality. Sacroiliac joints: The sacroiliac joints are symmetric without evidence for erosions, fractures, or dislocations. The soft tissues are normal. IMPRESSION IMPRESSION: See above. Distance Learning Unit Leader: VIV Transcribe Date/Time: Dec 07 2023 10:10A Dictated by : JEANETTE LUBIN MD This examination was interpreted and the report reviewed and electronically signed by: JEANETTE LUBIN MD on Dec 07 2023 10:17AM [facility] XR Sacroiliac Joint Viewson 12-07-2023 * * *Final Report* * * DATE OF EXAM: Dec 06 2023 3:13PM [id number] - XR SI JTS 2V AP PELV/AKINS / PROCEDURE REASON: Pain in joint, multiple sites * * * * Physician Interpretation * * * * EXAM TITLE: XR HIP 3V PELV+ AP/LAT RT, XR HAND 3V PA/LAT/OBL RT, XR HAND 3V PA/LAT/OBL LT, XR KNEE SURVEY 1V AP ROSITA, XR HIP 3V PELV+ AP/LAT LT, XR CERVICAL 2V AP/LAT, XR SHLDR >/=3V AP/EUFEMIA AP/OTHR RT, XR SHLDR >/=3V AP/EUFEMIA AP/OTHR LT, XR LUMBAR 3V AP/LAT/L5-S1, XR SI JTS 2V AP PELV/AKINS DATE: 12/07/2023 10:10 AM INDICATION: Pain in multiple joints COMPARISON: None. FINDINGS: AP pelvis and both hips: No fracture or dislocation. No acute joint or soft tissue abnormality. Few pelvic vascular calcifications. 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 Milder osteoarthritis at the interphalangeal joints otherwise. No erosions. No fractures or dislocations. No soft tissue abnormality. AP view of the knees: Joint spaces are symmetrically maintained. No acute bone or soft tissue abnormality otherwise. Bilateral shoulders: No fracture or dislocation. No joint or soft tissue abnormality. Cervical spine: Moderate degenerative disc disease at C5-6. Mild multilevel facet joint arthrosis. No fracture or dislocation. No acute soft tissue abnormality. Lumbar spine: Moderately advanced degenerative disc disease at L5-S1. Moderate facet joint arthrosis at L4-5 and L5-S1. No fracture or dislocation. Normal alignment. No acute soft tissue abnormality. Sacroiliac joints: The sacroiliac joints are symmetric without evidence for erosions, fractures, or dislocations. The soft tissues are normal. [facility] Provider, [facility] [place] - 12/07/2023 * * *Final Report* * * DATE OF EXAM: Dec 06 2023 3:13PM [id number] - XR SI JTS 2V AP PELV/AKINS / PROCEDURE REASON: Pain in joint, multiple sites * * * * Physician Interpretation * * * * EXAM TITLE: XR HIP 3V PELV+ AP/LAT RT, XR HAND 3V PA/LAT/OBL RT, XR HAND 3V PA/LAT/OBL LT, XR KNEE SURVEY 1V AP ROSITA, XR HIP 3V PELV+ AP/LAT LT, XR CERVICAL 2V AP/LAT, XR SHLDR >/=3V AP/EUFEMIA AP/OTHR RT, XR SHLDR >/=3V AP/EUFEMIA AP/OTHR LT, XR LUMBAR 3V AP/LAT/L5-S1, XR SI JTS 2V AP PELV/AKINS DATE: 12/07/2023 10:10 AM INDICATION: Pain in multiple joints COMPARISON: None. FINDINGS: AP pelvis and both hips: No fracture or dislocation. No acute joint or soft tissue abnormality. Few pelvic vascular calcifications. 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 Milder osteoarthritis at the interphalangeal joints otherwise. No erosions. No fractures or dislocations. No soft tissue abnormality. AP view of the knees: Joint spaces are symmetrically maintained. No acute bone or soft tissue abnormality otherwise. Bilateral shoulders: No fracture or dislocation. No joint or soft tissue abnormality. Cervical spine: Moderate degenerative disc disease at C5-6. Mild multilevel facet joint arthrosis. No fracture or dislocation. No acute soft tissue abnormality. Lumbar spine: Moderately advanced degenerative disc disease at L5-S1. Moderate facet joint arthrosis at L4-5 and L5-S1. No fracture or dislocation. Normal alignment. No acute soft tissue abnormality. Sacroiliac joints: The sacroiliac joints are symmetric without evidence for erosions, fractures, or dislocations. The soft tissues are normal. IMPRESSION IMPRESSION: See above. Distance Learning Unit Leader: VIV Transcribe Date/Time: Dec 07 2023 10:10A Dictated by : JEANETTE LUBIN MD This examination was interpreted and the report reviewed and electronically signed by: JEANETTE LUBIN MD on Dec 07 2023 10:17AM EST [facility] XR Shoulder - left 3 Viewson 12-07-2023 * * *Final Report* * * DATE OF EXAM: Dec 06 2023 3:13PM [id number] - XR SHLDR >/=3V AP/EUFEMIA AP/OTHR LT / PROCEDURE REASON: Pain in joint, multiple sites * * * * Physician Interpretation * * * * EXAM TITLE: XR HIP 3V PELV+ AP/LAT RT, XR HAND 3V PA/LAT/OBL RT, XR HAND 3V PA/LAT/OBL LT, XR KNEE SURVEY 1V AP ROSITA, XR HIP 3V PELV+ AP/LAT LT, XR CERVICAL 2V AP/LAT, XR SHLDR >/=3V AP/EUFEMIA AP/OTHR RT, XR SHLDR >/=3V AP/EUFEMIA AP/OTHR LT, XR LUMBAR 3V AP/LAT/L5-S1, XR SI JTS 2V AP PELV/AKINS DATE: 12/07/2023 10:10 AM INDICATION: Pain in multiple joints COMPARISON: None. FINDINGS: AP pelvis and both hips: No fracture or dislocation. No acute joint or soft tissue abnormality. Few pelvic vascular calcifications. 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 Milder osteoarthritis at the interphalangeal joints otherwise. No erosions. No fractures or dislocations. No soft tissue abnormality. AP view of the knees: Joint spaces are symmetrically maintained. No acute bone or soft tissue abnormality otherwise. Bilateral shoulders: No fracture or dislocation. No joint or soft tissue abnormality. Cervical spine: Moderate degenerative disc disease at C5-6. Mild multilevel facet joint arthrosis. No fracture or dislocation. No acute soft tissue abnormality. Lumbar spine: Moderately advanced degenerative disc disease at L5-S1. Moderate facet joint arthrosis at L4-5 and L5-S1. No fracture or dislocation. Normal alignment. No acute soft tissue abnormality. Sacroiliac joints: The sacroiliac joints are symmetric without evidence for erosions, fractures, or dislocations. The soft tissues are normal. [facility] Provider, [facility] [place] - 12/07/2023 * * *Final Report* * * DATE OF EXAM: Dec 06 2023 3:13PM [id number] - XR SHLDR >/=3V AP/EUFEMIA AP/OTHR LT / PROCEDURE REASON: Pain in joint, multiple sites * * * * Physician Interpretation * * * * EXAM TITLE: XR HIP 3V PELV+ AP/LAT RT, XR HAND 3V PA/LAT/OBL RT, XR HAND 3V PA/LAT/OBL LT, XR KNEE SURVEY 1V AP ROSITA, XR HIP 3V PELV+ AP/LAT LT, XR CERVICAL 2V AP/LAT, XR SHLDR >/=3V AP/EUFEMIA AP/OTHR RT, XR SHLDR >/=3V AP/EUFEMIA AP/OTHR LT, XR LUMBAR 3V AP/LAT/L5-S1, XR SI JTS 2V AP PELV/AKINS DATE: 12/07/2023 10:10 AM INDICATION: Pain in multiple joints COMPARISON: None. FINDINGS: AP pelvis and both hips: No fracture or dislocation. No acute joint or soft tissue abnormality. Few pelvic vascular calcifications. 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 Milder osteoarthritis at the interphalangeal joints otherwise. No erosions. No fractures or dislocations. No soft tissue abnormality. AP view of the knees: Joint spaces are symmetrically maintained. No acute bone or soft tissue abnormality otherwise. Bilateral shoulders: No fracture or dislocation. No joint or soft tissue abnormality. Cervical spine: Moderate degenerative disc disease at C5-6. Mild multilevel facet joint arthrosis. No fracture or dislocation. No acute soft tissue abnormality. Lumbar spine: Moderately advanced degenerative disc disease at L5-S1. Moderate facet joint arthrosis at L4-5 and L5-S1. No fracture or dislocation. Normal alignment. No acute soft tissue abnormality. Sacroiliac joints: The sacroiliac joints are symmetric without evidence for erosions, fractures, or dislocations. The soft tissues are normal. IMPRESSION IMPRESSION: See above. Distance Learning Unit Leader: VIV Transcribe Date/Time: Dec 07 2023 10:10A Dictated by : JEANETTE LUBIN MD This examination was interpreted and the report reviewed and electronically signed by: JEANETTE LUBIN MD on Dec 07 2023 10:17AM EST [facility] XR Shoulder - right 3 Viewso n 12-07-2023 * * *Final Report* * * DATE OF EXAM: Dec 06 2023 3:13PM [id number] - XR SHLDR >/=3V AP/EUFEMIA AP/OTHR RT / PROCEDURE REASON: Pain in joint, multiple sites * * * * Physician Interpretation * * * * EXAM TITLE: XR HIP 3V PELV+ AP/LAT RT, XR HAND 3V PA/LAT/OBL RT, XR HAND 3V PA/LAT/OBL LT, XR KNEE SURVEY 1V AP ROSITA, XR HIP 3V PELV+ AP/LAT LT, XR CERVICAL 2V AP/LAT, XR SHLDR >/=3V AP/EUFEMIA AP/OTHR RT, XR SHLDR >/=3V AP/EUFEMIA AP/OTHR LT, XR LUMBAR 3V AP/LAT/L5-S1, XR SI JTS 2V AP PELV/AKINS DATE: 12/07/2023 10:10 AM INDICATION: Pain in multiple joints COMPARISON: None. FINDINGS: AP pelvis and both hips: No fracture or dislocation. No acute joint or soft tissue abnormality. Few pelvic vascular calcifications. 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 Milder osteoarthritis at the interphalangeal joints otherwise. No erosions. No fractures or dislocations. No soft tissue abnormality. AP view of the knees: Joint spaces are symmetrically maintained. No acute bone or soft tissue abnormality otherwise. Bilateral shoulders: No fracture or dislocation. No joint or soft tissue abnormality. Cervical spine: Moderate degenerative disc disease at C5-6. Mild multilevel facet joint arthrosis. No fracture or dislocation. No acute soft tissue abnormality. Lumbar spine: Moderately advanced degenerative disc disease at L5-S1. Moderate facet joint arthrosis at L4-5 and L5-S1. No fracture or dislocation. Normal alignment. No acute soft tissue abnormality. Sacroiliac joints: The sacroiliac joints are symmetric without evidence for erosions, fractures, or dislocations. The soft tissues are normal. [facility] Provider, [facility] Paddy [facility] - 12/07/2023 * * *Final Report* * * DATE OF EXAM: Dec 06 2023 3:13PM [id number] [id number] - XR SHLDR >/=3V AP/EUFEMIA AP/OTHR RT / PROCEDURE REASON: Pain in joint, multiple sites * * * * Physician Interpretation * * * * EXAM TITLE: XR HIP 3V PELV+ AP/LAT RT, XR HAND 3V PA/LAT/OBL RT, XR HAND 3V PA/LAT/OBL LT, XR KNEE SURVEY 1V AP ROSITA, XR HIP 3V PELV+ AP/LAT LT, XR CERVICAL 2V AP/LAT, XR SHLDR >/=3V AP/EUFEMIA AP/OTHR RT, XR SHLDR >/=3V AP/EUFEMIA AP/OTHR LT, XR LUMBAR 3V AP/LAT/L5-S1, XR SI JTS 2V AP PELV/AKINS DATE: 12/07/2023 10:10 AM INDICATION: Pain in multiple joints COMPARISON: None. FINDINGS: AP pelvis and both hips: No fracture or dislocation. No acute joint or soft tissue abnormality. Few pelvic vascular calcifications. 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 Milder osteoarthritis at the interphalangeal joints otherwise. No erosions. No fractures or dislocations. No soft tissue abnormality. AP view of the knees: Joint spaces are symmetrically maintained. No acute bone or soft tissue abnormality otherwise. Bilateral shoulders: No fracture or dislocation. No joint or soft tissue abnormality. Cervical spine: Moderate degenerative disc disease at C5-6. Mild multilevel facet joint arthrosis. No fracture or dislocation. No acute soft tissue abnormality. Lumbar spine: Moderately advanced degenerative disc disease at L5-S1. Moderate facet joint arthrosis at L4-5 and L5-S1. No fracture or dislocation. Normal alignment. No acute soft tissue abnormality. Sacroiliac joints: The sacroiliac joints are symmetric without evidence for erosions, fractures, or dislocations. The soft tissues are normal. IMPRESSION IMPRESSION: See above. Distance Learning Unit Leader: VIV Transcribe Date/Time: Dec 07 2023 10:10A Dictated by : JEANETTE LUBIN MD This examination was interpreted and the report reviewed and electronically signed by: JEANETTE LUBIN MD on Dec 07 2023 10:17AM EST [facility] 25(OH)D3 SerPl-mCncon 2023 25-hydroxyvitamin D3 [Mass/Vol] 46.8 ng/mL Normal >=30.0 [facility] Comment on above: Order Comment: Speci men Type: BLOOD SPECIMENOrdering Facility: [facility] Address: [address] [place] [address] Result Comment: Clas sification of 25 [place] Vitamin D status: Deficiency: <= 20.0 ng/ml. Insufficiency: 21.0-29.0 ng/ml. Sufficiency: >= 30.0 ng/ml. Performed By: #### 1 989-3 ####[facility] LABORATORYCLIA [id number] [place] [address] [place] [facility] 25-hydroxyvitamin D3 [Mass/V ol]on 12-06-2023 Interpretation and review of laboratory results Normal [facility] CBC W Auto Differential pane l (Bld)on 12-06-2023 Basophils (Bld) [#/Vol] 0.07 10*3/uL [facility] Basophils/100 WBC (Bld) 0.9 % [facility] Differential cell count method Nom (Bld) Auto [facility] Eosinophils (Bld) [#/Vol] 0.20 10*3/uL [facility] Eosinophils/100 WBC (Bld) 2.5 % [facility] Erythrocyte distribution width (RBC) [Ratio] 13.2 % 11.5 - 15.0 % [facility] Hematocrit (Bld) [Volume fraction] 44.6 % 36.0 - 46.0 % [facility] Hemoglobin (Bld) [Mass/Vol] 14.2 g/dL 11.5 - 15.5 g/dL [facility] Immature granulocytes (Bld) [#/Vol] 0.04 10*3/uL [facility] Immature granulocytes/100 WBC (Bld) 0.5 % [facility] Lymphocytes (Bld) [#/Vol] 1.81 10*3/uL [facility] Lymphocytes/100 WBC (Bld) 22.9 % [facility] MCH (RBC) [Entitic mass] 30.4 pg 26.0 - 34.[address] [facility] MCHC (RBC) [Mass/Vol] 31.8 g/dL 30.5 - 36.0 g/dL [facility] MCV (RBC) [Entitic vol] 95.5 fL 80.0 - 100.[address] [facility] Monocytes (Bld) [#/Vol] 0.43 10*3/uL [facility] Monocytes/100 WBC (Bld) 5.4 % [facility] Neutrophils (Bld) [#/Vol] 5.37 10*3/uL [facility] Neutrophils/100 WBC (Bld) 67.8 % [facility] Nucleated RBC (Bld) [#/Vol] NINF [facility] Nucleated RBC/100 WBC (Bld) [Ratio] 0.0 % /[address] [facility] Platelet mean volume (Bld) [Entitic vol] 11.1 fL 9.0 - 12.[address] [facility] Platelets (Bld) [#/Vol] 258 10*3/uL [facility] RBC (Bld) [#/Vol] 4.67 10*6/uL 3.90 - 5.2 0 m/uL [facility] WBC (Bld) [#/Vol] 7.92 10*3/uL [facility] Basophils (Bld) [#/Vol] 0.07 10*3/uL Normal <0.11 [facility] Comment on above: Order Comment: Speci men Type: BLOOD SPECIMEN [facility] Address: [address] [place] [address] Performed By: #### 5 7021-8 #### [facility] CLIA [id number] [address] Basophils/100 WBC (Bld) 0.9 % Normal [facility] Comment on above: Order Comment: Speci men Type: BLOOD SPECIMEN [facility] Facility: [facility] Address: [address] [place] [address] Performed By: #### 5 7021-8 #### [facility] CLIA [id number] [address] [place] [address] [place] Differential cell count method Nom (Bld) Auto Normal [facility] Comment on above: Order Comment: Speci men Type: BLOOD SPECIMEN [facility] Address: [address] [place] [address] Performed By: #### 5 7021-8 #### [facility] CLIA [id number] [address] [place] Eosinophils (Bld) [#/Vol] 0.20 10*3/uL Normal <0.46 [facility] Comment on above: Order Comment: Speci men Type: BLOOD SPECIMEN [facility] Address: [address] [place] [address] Performed By: #### 5 7021-8 #### [facility] CLIA [id number] [address] Eosinophils/100 WBC (Bld) 2.5 % Normal [facility] Comment on above: Order Comment: Speci men Type: BLOOD SPECIMEN [facility] Address: [address] [place] [address] Performed By: #### 5 7021-8 #### [facility] CLIA [id number] [address] STATES [facility] Erythrocyte distribution width (RBC) [Ratio] 13.2 % Normal 11.5-15.0 [facility] Comment on above: Order Comment: Speci men Type: BLOOD SPECIMEN [facility] Address: [address] [place] [address] Performed By: #### 5 7021-8 #### [facility] CLIA [id number] [address] [place] Hematocrit (Bld) [Volume fraction] 44.6 % Normal 36.0-46.0 [facility] Comment on above: Order Comment: Speci men Type: BLOOD SPECIMEN [facility] Address: [address] [place] [address] Performed By: #### 5 7021-8 #### [facility] CLIA [id number] [address] [place] Hemoglobin (Bld) [Mass/Vol] 14.2 g/dL Normal 11.5-15.5 [facility] Comment on above: Order Comment: Speci men Type: BLOOD SPECIMEN [facility] Address: [address] [place] [address] Performed By: #### 5 7021-8 #### [facility] CLIA [id number] [address] [place] Immature granulocytes (Bld) [#/Vol] 0.04 10*3/uL Normal <0.10 [facility] Comment on above: Order Comment: Speci men Type: BLOOD SPECIMEN [facility] Address: [address] [place] [address] Performed By: #### 5 7021-8 #### [facility] CLIA [id number] [address] Immature granulocytes/100 WBC (Bld) 0.5 % Normal [facility] Comment on above: Order Comment: Speci men Type: BLOOD SPECIMEN [facility] Address: [address] [place] [address] Performed By: #### 5 7021-8 #### [facility] CLIA [id number] [address] [place] Lymphocytes (Bld) [#/Vol] 1.81 10*3/uL Normal 1.00-4.00 [facility] Comment on above: Order Comment: Speci men Type: BLOOD SPECIMEN [facility] Address: [address] [place] [address] Performed By: #### 5 7021-8 #### [facility] CLIA [id number] [address] [place] Lymphocytes/100 WBC (Bld) 22.9 % Normal [facility] Comment on above: Order Comment: Speci men Type: BLOOD SPECIMEN [facility] Address: [address] [place] [address] Performed By: #### 5 7021-8 #### [facility] CLIA [id number] [address] MCH (RBC) [Entitic mass] 30.4 pg Normal 26.0-34.0 [facility] Comment on above: Order Comment: Speci men Type: BLOOD SPECIMEN [facility] Address: [address] [place] [address] Performed By: #### 5 7021-8 #### [facility] CLIA [id number] [address] [place] MCHC (RBC) [Mass/Vol] 31.8 g/dL Normal 30.5-36.0 [facility] Comment on above: Order Comment: Speci men Type: BLOOD SPECIMEN [facility] Address: [address] [place] [address] Performed By: #### 5 7021-8 #### [facility] CLIA [id number] [address] MCV (RBC) [Entitic vol] 95.5 fL Normal 80.0-100.0 [facility] Comment on above: Order Comment: Speci men Type: BLOOD SPECIMEN [facility] Address: [address] [place] [address] Performed By: #### 5 7021-8 #### [facility] CLIA [id number] [address] OF [facility] Monocytes (Bld) [#/Vol] 0.43 10*3/uL Normal <0.87 [facility] Comment on above: Order Comment: Speci men Type: BLOOD SPECIMEN [facility] Address: [address] [place] [address] Performed By: #### 5 7021-8 #### [facility] CLIA [id number] [address] Monocytes/100 WBC (Bld) 5.4 % Normal [facility] Comment on above: Order Comment: Speci men Type: BLOOD SPECIMEN [facility] Address: [address] [place] [address] Performed By: #### 5 7021-8 #### [facility] CLIA [id number] [address] [place] Neutrophils (Bld) [#/Vol] 5.37 10*3/uL Normal 1.45-7.50 [facility] Comment on above: Order Comment: Speci men Type: BLOOD SPECIMEN [facility] Address: [address] [place] [address] Performed By: #### 5 7021-8 #### [facility] CLIA [id number] [address] Neutrophils/100 WBC (Bld) 67.8 % Normal [facility] Comment on above: Order Comment: Speci men Type: BLOOD SPECIMEN [facility] Address: [address] [place] [address] Performed By: #### 5 7021-8 #### [facility] CLIA [id number] [address] [place] Nucleated RBC (Bld) [#/Vol] 10*3/uL Normal <0.01 [facility] Comment on above: Order Comment: Speci men Type: BLOOD SPECIMEN [facility] Address: [address] [place] [address] Performed By: #### 5 7021-8 #### [facility] CLIA [id number] [address] [place] Nucleated RBC/100 WBC (Bld) [Ratio] 0.0 /100 WBC Normal [facility] Comment on above: Order Comment: Speci men Type: BLOOD SPECIMEN [facility] Address: [address] [place] [address] Performed By: #### 5 7021-8 #### [facility] CLIA [id number] [address] [place] Platelet mean volume (Bld) [Entitic vol] 11.1 fL Normal 9.0-12.7 [facility] Comment on above: Order Comment: Speci men Type: BLOOD SPECIMEN [facility] Address: [address] [place] [address] Performed By: #### 5 7021-8 #### [facility] CLIA [id number] [address] Platelets (Bld) [#/Vol] 258 10*3/uL Normal 150-400 [facility] Comment on above: Order Comment: Speci men Type: BLOOD SPECIMEN [facility] Address: [address] [place] [address] Performed By: #### 5 7021-8 #### [facility] CLIA [id number] [address] RBC (Bld) [#/Vol] 4.67 10*6/uL Normal 3.90-5.20 [facility] Comment on above: Order Comment: Speci men Type: BLOOD SPECIMEN [facility] Address: [address] [place] [address] Performed By: #### 5 7021-8 #### [facility] CLIA [id number] [address] WBC (Bld) [#/Vol] 7.92 10*3/uL Normal 3.70-11.00 [facility] Comment on above: Order Comment: Speci men Type: BLOOD SPECIMEN [facility] Address: [address] [place] [address] Performed By: #### 5 7021-8 #### [facility] CLIA [id number] [address] CNOVon 12-06-2023 CNOV Office Visit (RHBATH ) JIE LR ([id number]) 1950 F Date Time Provider Department 12/06/23 1:20 PM INEZ CHADWICK During your visit today, we recorded the following information about you: Temperature Pulse Blood pressure Weight 95.3 degrees 78/minute 139/81 68 kg Height 1.676 m Inez Chadwick MD 12/08/2023 10:14 AM Signed RHEUMATOLOGY NEW PATIENT NOTE REFERRING PHYSICIAN: Self CHIEF COMPLAINT: Patient presents with: Joint Pain New Patient HPI: Jie Lr is a 73 year old female who presents with joint pain. Ache all over. Challenging year upper, back, shoulder blades, low back, legs, hips. Flare ups stress. She takes aspirin for pain. She takes on Cymbalta. Pain has been worse this year. She was started on Plaquenil by [facility] for early RA. May have helped. Eye exams have been okay. She has seen different rheumatologists. She was also diagnosed with fibromyalgia. Trigger thumb injection. Hip pain - PRP injections. IT band syndrome. Bunions surgery Total Hysterectomy 2001. No fractures. Reports falls. Due for DEXA. Last BMD 2019 osteopenia Cataract Thyroid disease Allergic to sulfa Family history of autoimmune disease: cousin with RA Smoking status: Tobacco Use: Never Rheumatology REVIEW OF SYSTEMS: Constitutional: Recent Weight Change: YES gaining Fatigue: YES episodic Fever: No Night sweats: No Heent: Alopecia: No H/o Inflammatory eye disease (iritis/scleritis): No Hearing loss: No Frequent sinusitis: No Oral ulcers: No Sicca: No Parotid swelling: No Hoarseness: No Dysphagia: No Heme/lymph: Lymphadenopathy: No Hematological abnormalities (anemia, thrombocytopenia, leukopenia): No Abnormal bleeding: No Skin: Malar or discoid lesions: No Photosensitivity: No Other rashes: No Raynaud's phenomenon: YES white Hives: No Tightness: No Nodules/bumps: No Easy Bruising: No Nail changes: No H/o psoriasis: No Gastroenterology: Nausea: No Vomiting: No Change in bowel movements: No Heartburn: No Respiratory: Dry cough/SOB: No Cardiovascular: Pain in chest: No Musculoskeletal: Per HPI Genitourinary: Vaginal dryness: No Rash/ulcers: No Neurological: Headaches: YES Sensitivity or pain of hands and/or feet: No Psychiatry: Anxiety: No Depression: No Poor sleep: YES KATERINA on CPAP H/o loss: No H/o thrombosis: No Increased susceptibility to infection: No PAST MEDICAL HISTORY No date: Other and unspecified hyperlipidemia No date: Rosacea No date: Temporomandibular joint disorders, unspecified PAST SURGICAL HISTORY No date: VAGINAL HYSTERECTOMY Comment: BSO Current Outpatient Medications Medication Sig galcanezumab-gnlm (EMGALITY PEN SUBCUTANEOUS) Inject subcutaneously. ubidecarenone (COENZYME Q10) 100 mg tab Take by mouth. calcium carbonate/vitamin D3 (CALTRATE 600 PLUS D ORAL) Take by mouth. mv-mn/folic ac/calcium/vit K1 (WOMEN'S 50 PLUS MULTIVITAMIN ORAL) Take by mouth. duloxetine HCl (CYMBALTA ORAL) Take 30 mg by mouth. rosuvastatin (CRESTOR) 5 mg tablet Take 5 mg by mouth. Every three days omeprazole (PRILOSEC) 20 mg capsule Take 20 mg by mouth once daily. Aspirin-Caffeine 400-32 mg tab Take by mouth as needed. vsxxzuetml-hjlyucy-trz feine-codeine (FIORINAL WITH CODEINE) capsule Take 1 capsule by mouth every 4 hours as needed. rizatriptan (MAXALT PLODDING OPERATOR) 5 mg disintegrating tablet Take 5 mg by mouth as needed. May repeat in 2 hours if needed DINORAH 60 MG CAP 60 mg. hydroxychloroquine (PLAQUENIL) 200 mg tablet Take 200 mg by mouth once daily. Cholecalciferol, Vitamin D3, 2,000 unit cap Take by mouth once daily. SYNTHROID 125MCG TABLET Take one(1) tablet daily. naproxen sodium(ALEVE 220 MG TAB) Take one(1) tablet twice daily. No current facility-administered medications for this visit. ALLERGIES Allergen Reactions Dust Mites Rash FAMILY HISTORY Problem Relation Age of Onset Headache Mother Headache Father Cancer Father Brain tumor Social History Tobacco Use Smoking status: Never Occupation: Employer And Job Title: None on file Years Of Education Completed: Not specified Marital Status: History Review: I have reviewed and modified as needed, the following during this visit: Allergies, Past Medical History, Past Surgical History, Past Family History, Past Social History. BP 139/81 Pulse 78 Temp (!) 35.2 ?C (95.3 ?F) (Temporal) Ht 167.6 cm (5' 6 ) Wt 68 kg (150 lb) SpO2 99% BMI 24.21 kg/m? Physical Exam GENERAL: Well appearing, alert, comfortable, in no acute distress, well-hydrated, well nourished. HEENT: Negative for external ears normal. Canals are clear. Both TMs visualized and are normal. Eye Exam normal. External nose normal, no nasal ulcer or throat ulcer. NECK: NECK Supple, no adenopathy; (more content not included)... Normal [facility] Comprehensive metabolic 2000 panelon 12-06-2023 Albumin [Mass/Vol] 4.3 g/dL 3.9 - 4.9 g/dL [facility] ALP [Catalytic activity/Vol] 111 U/L 34 - 123 U/L [facility] ALT With P-5'-P [Catalytic activity/Vol] 21 U/L 7 - 38 U/L [facility] Anion gap [Moles/Vol] 11 mmol/L 8 - 15 mmol/L [facility] AST With P-5'-P [Catalytic activity/Vol] 30 U/L 13 - 35 U/L [facility] Bilirubin [Mass/Vol] mg/dL Low 0.2 - 1 .3 mg/dL [facility] Calcium [Mass/Vol] 9.5 mg/dL 8.5 - 10. 2 mg/dL [facility] Chloride [Moles/Vol] 102 mmol/L 98 - 10 7 mmol/L [facility] CO2 [Moles/Vol] 26 mmol/L 22 - 30 mmol/L [facility] Creatinine [Mass/Vol] 0.98 mg/dL High 0.58 - 0.96 mg/dL [facility] GFR/1.73 sq M.predicted among non-blacks MDRD (S/P/Bld) [Vol rate/Area] 62 mL/min/{1.73_m2} - PINF [facility] Comment on above: Estimated Glomerular Filtration Rate (eGFR) is calculated using the 2020 CKD-EPI creatinine equation. This equation utilizes serum creatinine, sex, and age as parameters. The creatinine assay has traceable calibration to isotope dilution-mass spectrometry. Refer to KDIGO guidelines for clinical interpretation. In patients with unstable renal function, e.g. those with acute kidney injury, the eGFR may not accurately reflect actual GFR. Glucose [Mass/Vol] 84 mg/dL 74 - 99 mg/dL [facility] Comment on above: The [place] Diabete s Association (ADA) provides guidance for cutoff values for fasting glucose and random glucose. The ADA defines fasting as no caloric intake for at least 8 hours. Fasting plasma glucose results between 100 to 125 mg/dL indicate increased risk for diabetes (prediabetes). Fasting plasma glucose results greater than or equal to 126 mg/dL meet the criteria for diagnosis of diabetes. In the absence of unequivocal hyperglycemia, results should be confirmed by repeat testing. In a patient with classic symptoms of hyperglycemia or hyperglycemic crisis, random plasma glucose results greater than or equal to 200 mg/dL meet the criteria for diagnosis of diabetes. Reference: Standards of Medical Care in Diabetes 2016, [place] [employer] Association. Diabetes Care. 2016.39(Suppl 1). Interpretation and review of laboratory results Abnormal [facility] Potassium [Moles/Vol] 3.7 mmol/L 3.7 - 5.1 mmol/L [facility] Protein [Mass/Vol] 7.1 g/dL 6.3 - 8.0 g/dL [facility] Sodium [Moles/Vol] 139 mmol/L 136 - 144 mmol/L [facility] Urea nitrogen [Mass/Vol] 17 mg/dL 7 - 21 mg/dL [facility] Albumin [Mass/Vol] 4.3 g/dL Normal 3.9-4.9 [facility] Comment on above: Order Comment: Speci men Type: BLOOD SPECIMENOrdering Facility: [facility] Address: [address] [place] [address] Performed By: #### 2 4323-8 ####[facility]ORYCLIA [id number] [address] ALP [Catalytic activity/Vol] 111 U/L Normal 34-123 [facility] Comment on above: Order Comment: Speci men Type: BLOOD SPECIMENOrdering Facility: [facility] Address: [address] [place] [address] Performed By: #### 2 4323-8 ####[facility]ATORYCLIA [id number] [address] STATES OF [facility] ALT With P-5'-P [Catalytic activity/Vol] 21 U/L Normal 7-38 [facility] Comment on above: Order Comment: Speci men Type: BLOOD SPECIMENOrdering Facility: [facility] Address: [address] [place] [address] Performed By: #### 2 4323-8 ####[facility]ORYCLIA [id number] [address] OF [facility] Anion gap [Moles/Vol] 11 mmol/L Normal 8-15 [facility] Comment on above: Order Comment: Speci men Type: BLOOD SPECIMENOrdering Facility: [facility] Address: [address] [place] [address] Performed By: #### 2 4323-8 ####[facility]ORYCLIA [id number] [address] AST With P-5'-P [Catalytic activity/Vol] 30 U/L Normal 13-35 [facility] Comment on above: Order Comment: Speci men Type: BLOOD SPECIMENOrdering Facility: [facility] Address: [address] [place] [address] Performed By: #### 2 4323-8 ####[facility]ORYCLIA [id number] [address] Bilirubin [Mass/Vol] mg/dL Low 0.2-1.3 [facility] Comment on above: Order Comment: Speci men Type: BLOOD SPECIMENOrdering Facility: [facility] Address: [address] [place] [address] Performed By: #### 2 4323-8 ####[facility]ATORYCLIA [id number] [address] STATES OF [facility] Calcium [Mass/Vol] 9.5 mg/dL Normal 8.5-10.2 [facility] Comment on above: Order Comment: Speci men Type: BLOOD SPECIMENOrdering Facility: [facility] Address: [address] [place] [address] Performed By: #### 2 4323-8 ####[facility] LABORATORYCLIA [id number] [address] Chloride [Moles/Vol] 102 mmol/L Normal 98-107 [facility] Comment on above: Order Comment: Speci men Type: BLOOD SPECIMENOrdering Facility: [facility] Address: [address] [place] [address] Performed By: #### 2 4323-8 ####[facility] LABORATORYCLIA [id number] [address] OF [facility] CO2 [Moles/Vol] 26 mmol/L Normal 22-30 [facility] Comment on above: Order Comment: Speci men Type: BLOOD SPECIMENOrdering Facility: [facility] Address: [address] [place] [address] Performed By: #### 2 4323-8 ####[facility]ATIONCLIA [id number] [address] [facility] Creatinine [Mass/Vol] 0.98 mg/dL High 0.58-0.96 [facility] Comment on above: Order Comment: Speci men Type: BLOOD SPECIMENOrdering Facility: [facility] Address: [address] [place] [address] Performed By: #### 2 4323-8 ####[facility] LABORATORYCLIA [id number] [address] Creatinine and Glomerular filtration rate.predicted panel (S/P/Bld) 62 mL/min/1.73m??? Normal >=60 [facility] Comment on above: Order Comment: Speci men Type: BLOOD SPECIMENOrdering Facility: [facility] Address: [address] [place] [address] Result Comment: Beryl mated Glomerular Filtration Rate (eGFR) is calculated using the 2020 CKD-EPI creatinine equation. This equation utilizes serum creatinine, sex, and age as parameters. The creatinine assay has traceable calibration to isotope dilution-mass spectrometry. Refer to KDIGO guidelines for clinical interpretation. In patients with unstable renal function, e.g. those with acute kidney injury, the eGFR may not accurately reflect actual GFR. Performed By: #### 2 4323-8 ####[facility] LABORATORYCLIA [id number] [place] [address] [place] Glucose [Mass/Vol] 84 mg/dL Normal 74-99 [facility] Comment on above: Order Comment: Phi gloria Type: BLOOD SPECIMENOrdering Facility: [facility] Address: [address] [place] [address] Result Comment: The [place] [employer] (ADA) provides guidance for cutoff values for fasting glucose and random glucose. The ADA defines fasting as no caloric intake for at least 8 hours. Fasting plasma glucose results between 100 to 125 mg/dL indicate increased risk for diabetes (prediabetes). Fasting plasma glucose results greater than or equal to 126 mg/dL meet the criteria for diagnosis of diabetes. In the absence of unequivocal hyperglycemia, results should be confirmed by repeat testing. In a patient with classic symptoms of hyperglycemia or hyperglycemic crisis, random plasma glucose results greater than or equal to 200 mg/dL meet the criteria for diagnosis of diabetes. Reference: Standards of Medical Care in Diabetes 2016, [place] [employer]. Diabetes Care. 2016.39(Suppl 1). Performed By: #### 2 4323-8 ####[facility] LABORATORYCLIA [id number] [place] [address] [place] Potassium [Moles/Vol] 3.7 mmol/L Normal 3.7-5.1 [facility] Comment on above: Order Comment: Phi gloria Type: BLOOD SPECIMENOrdering Facility: [facility] Address: [address] [place] [address] Performed By: #### 2 4323-8 ####[facility] LABORATORYCLIA [id number] [place] [address] [place] Protein [Mass/Vol] 7.1 g/dL Normal 6.3-8.0 [facility] Comment on above: Order Comment: Phi gloria Type: BLOOD SPECIMENOrdering Facility: [facility] Address: [address] [place] [address] Performed By: #### 2 4323-8 ####[facility] LABORATORYCLIA [id number] [place] [address] [place] Sodium [Moles/Vol] 139 mmol/L Normal 136-144 [facility] Comment on above: Order Comment: Speci men Type: BLOOD SPECIMENOrdering Facility: [facility] Address: [address] [place], [place] [id number] Performed By: #### 2 4323-8 ####[facility] LABORATORYCLIA [id number] [place] [address] [place] [facility] Urea nitrogen [Mass/Vol] 17 mg/dL Normal 7-21 [facility] Comment on above: Order Comment: Speci men Type: BLOOD SPECIMENOrdering Facility: [facility] Address: [address] [place], [place] [id number] Performed By: #### 2 4323-8 ####[facility] LABORATORYCLIA [id number] [place] [id number] [facility] No Panel Informationon 12-05 Radiology Study observation (narrative) [facility] VITAMIN D 25 HYDROXYon 12-05 25-hydroxyvitamin D3 [Mass/Vol] 46.8 ng/mL 30.0 - PINF ng/mL [facility] Comment on above: Classification of 25 [place] Vitamin D status: Deficiency: <= 20.0 ng/ml. Insufficiency: 21.0-29.0 ng/ml. Sufficiency: >= 30.0 ng/ml. XR CERVICAL 2V AP/LATon XR CERVICAL 2V AP/LAT * * *Final Report* * * DATE OF EXAM: Dec 06 2023 3:13PM AWX [id number] - XR CERVICAL 2V AP/LAT / PROCEDURE REASON: Pain in joint, multiple sites * * * * Physician Interpretation * * * * EXAM TITLE: XR HIP 3V PELV+ AP/LAT RT, XR HAND 3V PA/LAT/OBL RT, XR HAND 3V PA/LAT/OBL LT, XR KNEE SURVEY 1V AP ROSITA, XR HIP 3V PELV+ AP/LAT LT, XR CERVICAL 2V AP/LAT, XR SHLDR >/=3V AP/EUFEMIA AP/OTHR RT, XR SHLDR >/=3V AP/EUFEMIA AP/OTHR LT, XR LUMBAR 3V AP/LAT/L5-S1, XR SI JTS 2V AP PELV/AKINS DATE: 12/07/2023 10:10 AM INDICATION: Pain in multiple joints COMPARISON: None. FINDINGS: AP pelvis and both hips: No fracture or dislocation. No acute joint or soft tissue abnormality. Few pelvic vascular calcifications. 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 Milder osteoarthritis at the interphalangeal joints otherwise. No erosions. No fractures or dislocations. No soft tissue abnormality. AP view of the knees: Joint spaces are symmetrically maintained. No acute bone or soft tissue abnormality otherwise. Bilateral shoulders: No fracture or dislocation. No joint or soft tissue abnormality. Cervical spine: Moderate degenerative disc disease at C5-6. Mild multilevel facet joint arthrosis. No fracture or dislocation. No acute soft tissue abnormality. Lumbar spine: Moderately advanced degenerative disc disease at L5-S1. Moderate facet joint arthrosis at L4-5 and L5-S1. No fracture or dislocation. Normal alignment. No acute soft tissue abnormality. Sacroiliac joints: The sacroiliac joints are symmetric without evidence for erosions, fractures, or dislocations. The soft tissues are normal. IMPRESSION: See above. Distance Learning Unit Leader: VIV Transcribe Date/Time: Dec 07 2023 10:10A Dictated by : JEANETTE LUBIN MD This examination was interpreted and the report reviewed and electronically signed by: JEANETTE LUBIN MD on Dec 07 2023 10:17AM EST [id number] Normal [facility] XR HAND 3V PA/LAT/OBL LTon 0 12-06-2023 XR HAND 3V PA/LAT/OBL LT * * *Final Report* * * DATE OF EXAM: Dec 06 2023 3:13PM AWX 5345 - XR HAND 3V PA/LAT/OBL LT / PROCEDURE REASON: Pain in joint, multiple sites * * * * Physician Interpretation * * * * EXAM TITLE: XR HIP 3V PELV+ AP/LAT RT, XR HAND 3V PA/LAT/OBL RT, XR HAND 3V PA/LAT/OBL LT, XR KNEE SURVEY 1V AP ROSITA, XR HIP 3V PELV+ AP/LAT LT, XR CERVICAL 2V AP/LAT, XR SHLDR >/=3V AP/EUFEMIA AP/OTHR RT, XR SHLDR >/=3V AP/EUFEMIA AP/OTHR LT, XR LUMBAR 3V AP/LAT/L5-S1, XR SI JTS 2V AP PELV/AKINS DATE: 12/07/2023 10:10 AM INDICATION: Pain in multiple joints COMPARISON: None. FINDINGS: AP pelvis and both hips: No fracture or dislocation. No acute joint or soft tissue abnormality. Few pelvic vascular calcifications. 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 Milder osteoarthritis at the interphalangeal joints otherwise. No erosions. No fractures or dislocations. No soft tissue abnormality. AP view of the knees: Joint spaces are symmetrically maintained. No acute bone or soft tissue abnormality otherwise. Bilateral shoulders: No fracture or dislocation. No joint or soft tissue abnormality. Cervical spine: Moderate degenerative disc disease at C5-6. Mild multilevel facet joint arthrosis. No fracture or dislocation. No acute soft tissue abnormality. Lumbar spine: Moderately advanced degenerative disc disease at L5-S1. Moderate facet joint arthrosis at L4-5 and L5-S1. No fracture or dislocation. Normal alignment. No acute soft tissue abnormality. Sacroiliac joints: The sacroiliac joints are symmetric without evidence for erosions, fractures, or dislocations. The soft tissues are normal. IMPRESSION: See above. Distance Learning Unit Leader: PSCB Transcribe Date/Time: Dec 07 2023 10:10A Dictated by : JEANETTE LUBIN MD This examination was interpreted and the report reviewed and electronically signed by: JEANETTE LUBIN MD on Dec 07 2023 10:17AM EST [id number] Normal [facility] XR HAND 3V PA/LAT/OBL RTon 0 12-06-2023 XR HAND 3V PA/LAT/OBL RT * * *Final Report* * * DATE OF EXAM: Dec 06 2023 3:13PM AWX 5346 - XR HAND 3V PA/LAT/OBL RT / PROCEDURE REASON: Pain in joint, multiple sites * * * * Physician Interpretation * * * * EXAM TITLE: XR HIP 3V PELV+ AP/LAT RT, XR HAND 3V PA/LAT/OBL RT, XR HAND 3V PA/LAT/OBL LT, XR KNEE SURVEY 1V AP ROSITA, XR HIP 3V PELV+ AP/LAT LT, XR CERVICAL 2V AP/LAT, XR SHLDR >/=3V AP/EUFEMIA AP/OTHR RT, XR SHLDR >/=3V AP/EUFEMIA AP/OTHR LT, XR LUMBAR 3V AP/LAT/L5-S1, XR SI JTS 2V AP PELV/AKINS DATE: 12/07/2023 10:10 AM INDICATION: Pain in multiple joints COMPARISON: None. FINDINGS: AP pelvis and both hips: No fracture or dislocation. No acute joint or soft tissue abnormality. Few pelvic vascular calcifications. 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 Milder osteoarthritis at the interphalangeal joints otherwise. No erosions. No fractures or dislocations. No soft tissue abnormality. AP view of the knees: Joint spaces are symmetrically maintained. No acute bone or soft tissue abnormality otherwise. Bilateral shoulders: No fracture or dislocation. No joint or soft tissue abnormality. Cervical spine: Moderate degenerative disc disease at C5-6. Mild multilevel facet joint arthrosis. No fracture or dislocation. No acute soft tissue abnormality. Lumbar spine: Moderately advanced degenerative disc disease at L5-S1. Moderate facet joint arthrosis at L4-5 and L5-S1. No fracture or dislocation. Normal alignment. No acute soft tissue abnormality. Sacroiliac joints: The sacroiliac joints are symmetric without evidence for erosions, fractures, or dislocations. The soft tissues are normal. IMPRESSION: See above. Distance Learning Unit Leader: VIV Transcribe Date/Time: Dec 07 2023 10:10A Dictated by : JEANETTE LUBIN MD This examination was interpreted and the report reviewed and electronically signed by: JEANETTE LUBIN MD on Dec 07 2023 10:17AM EST [id number] Normal [facility] XR HIP 3V PELV+ AP/LAT LTon 12-06-2023 XR HIP 3V PELV+ AP/LAT LT * * *Final Report* * * DATE OF EXAM: Dec 06 2023 3:13PM AWX 5351 - XR HIP 3V PELV+ AP/LAT LT / PROCEDURE REASON: Pain in joint, multiple sites * * * * Physician Interpretation * * * * EXAM TITLE: XR HIP 3V PELV+ AP/LAT RT, XR HAND 3V PA/LAT/OBL RT, XR HAND 3V PA/LAT/OBL LT, XR KNEE SURVEY 1V AP ROSITA, XR HIP 3V PELV+ AP/LAT LT, XR CERVICAL 2V AP/LAT, XR SHLDR >/=3V AP/EUFEMIA AP/OTHR RT, XR SHLDR >/=3V AP/EUFEMIA AP/OTHR LT, XR LUMBAR 3V AP/LAT/L5-S1, XR SI JTS 2V AP PELV/AKINS DATE: 12/07/2023 10:10 AM INDICATION: Pain in multiple joints COMPARISON: None. FINDINGS: AP pelvis and both hips: No fracture or dislocation. No acute joint or soft tissue abnormality. Few pelvic vascular calcifications. 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 Milder osteoarthritis at the interphalangeal joints otherwise. No erosions. No fractures or dislocations. No soft tissue abnormality. AP view of the knees: Joint spaces are symmetrically maintained. No acute bone or soft tissue abnormality otherwise. Bilateral shoulders: No fracture or dislocation. No joint or soft tissue abnormality. Cervical spine: Moderate degenerative disc disease at C5-6. Mild multilevel facet joint arthrosis. No fracture or dislocation. No acute soft tissue abnormality. Lumbar spine: Moderately advanced degenerative disc disease at L5-S1. Moderate facet joint arthrosis at L4-5 and L5-S1. No fracture or dislocation. Normal alignment. No acute soft tissue abnormality. Sacroiliac joints: The sacroiliac joints are symmetric without evidence for erosions, fractures, or dislocations. The soft tissues are normal. IMPRESSION: See above. Distance Learning Unit Leader: VIV Transcribe Date/Time: Dec 07 2023 10:10A Dictated by : JEANETTE LUBIN MD This examination was interpreted and the report reviewed and electronically signed by: JEANETTE LUBIN MD on Dec 07 2023 10:17AM EST [id number] Normal [facility] XR HIP 3V PELV+ AP/LAT RTon 12-06-2023 XR HIP 3V PELV+ AP/LAT RT * * *Final Report* * * DATE OF EXAM: Dec 06 2023 3:13PM AWX 5352 - XR HIP 3V PELV+ AP/LAT RT / PROCEDURE REASON: Pain in joint, multiple sites * * * * Physician Interpretation * * * * EXAM TITLE: XR HIP 3V PELV+ AP/LAT RT, XR HAND 3V PA/LAT/OBL RT, XR HAND 3V PA/LAT/OBL LT, XR KNEE SURVEY 1V AP ROSITA, XR HIP 3V PELV+ AP/LAT LT, XR CERVICAL 2V AP/LAT, XR SHLDR >/=3V AP/EUFEMIA AP/OTHR RT, XR SHLDR >/=3V AP/EUFEMIA AP/OTHR LT, XR LUMBAR 3V AP/LAT/L5-S1, XR SI JTS 2V AP PELV/AKINS DATE: 12/07/2023 10:10 AM INDICATION: Pain in multiple joints COMPARISON: None. FINDINGS: AP pelvis and both hips: No fracture or dislocation. No acute joint or soft tissue abnormality. Few pelvic vascular calcifications. 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 Milder osteoarthritis at the interphalangeal joints otherwise. No erosions. No fractures or dislocations. No soft tissue abnormality. AP view of the knees: Joint spaces are symmetrically maintained. No acute bone or soft tissue abnormality otherwise. Bilateral shoulders: No fracture or dislocation. No joint or soft tissue abnormality. Cervical spine: Moderate degenerative disc disease at C5-6. Mild multilevel facet joint arthrosis. No fracture or dislocation. No acute soft tissue abnormality. Lumbar spine: Moderately advanced degenerative disc disease at L5-S1. Moderate facet joint arthrosis at L4-5 and L5-S1. No fracture or dislocation. Normal alignment. No acute soft tissue abnormality. Sacroiliac joints: The sacroiliac joints are symmetric without evidence for erosions, fractures, or dislocations. The soft tissues are normal. IMPRESSION: See above. Distance Learning Unit Leader: VIV Transcribe Date/Time: Dec 07 2023 10:10A Dictated by : JEANETTE LUBIN MD This examination was interpreted and the report reviewed and electronically signed by: JEANETTE LUBIN MD on Dec 07 2023 10:17AM EST [id number] Normal [facility] XR KNEE SURVEY 1V AP BILon 0 12-06-2023 XR KNEE SURVEY 1V AP ROSITA * * *Final Report* * * DATE OF EXAM: Dec 06 2023 3:13PM [id number] [id number] - XR KNEE SURVEY 1V AP ROSITA / PROCEDURE REASON: Pain in joint, multiple sites * * * * Physician Interpretation * * * * EXAM TITLE: XR HIP 3V PELV+ AP/LAT RT, XR HAND 3V PA/LAT/OBL RT, XR HAND 3V PA/LAT/OBL LT, XR KNEE SURVEY 1V AP ROSITA, XR HIP 3V PELV+ AP/LAT LT, XR CERVICAL 2V AP/LAT, XR SHLDR >/=3V AP/EUFEMIA AP/OTHR RT, XR SHLDR >/=3V AP/EUFEMIA AP/OTHR LT, XR LUMBAR 3V AP/LAT/L5-S1, XR SI JTS 2V AP PELV/AKINS DATE: 12/07/2023 10:10 AM INDICATION: Pain in multiple joints COMPARISON: None. FINDINGS: AP pelvis and both hips: No fracture or dislocation. No acute joint or soft tissue abnormality. Few pelvic vascular calcifications. 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 Milder osteoarthritis at the interphalangeal joints otherwise. No erosions. No fractures or dislocations. No soft tissue abnormality. AP view of the knees: Joint spaces are symmetrically maintained. No acute bone or soft tissue abnormality otherwise. Bilateral shoulders: No fracture or dislocation. No joint or soft tissue abnormality. Cervical spine: Moderate degenerative disc disease at C5-6. Mild multilevel facet joint arthrosis. No fracture or dislocation. No acute soft tissue abnormality. Lumbar spine: Moderately advanced degenerative disc disease at L5-S1. Moderate facet joint arthrosis at L4-5 and L5-S1. No fracture or dislocation. Normal alignment. No acute soft tissue abnormality. Sacroiliac joints: The sacroiliac joints are symmetric without evidence for erosions, fractures, or dislocations. The soft tissues are normal. IMPRESSION: See above. Distance Learning Unit Leader: PSCB Transcribe Date/Time: Dec 07 2023 10:10A Dictated by : JEANETTE LUBIN MD This examination was interpreted and the report reviewed and electronically signed by: JEANETTE LUBIN MD on Dec 07 2023 10:17AM EST [id number] Normal [facility] XR LUMBAR 3V AP/LAT/L5-S1on 12-06-2023 XR LUMBAR 3V AP/LAT/L5-S1 * * *Final Report* * * DATE OF EXAM: Dec 06 2023 3:13PM AWX [id number] - XR LUMBAR 3V AP/LAT/L5-S1 / PROCEDURE REASON: Pain in joint, multiple sites * * * * Physician Interpretation * * * * EXAM TITLE: XR HIP 3V PELV+ AP/LAT RT, XR HAND 3V PA/LAT/OBL RT, XR HAND 3V PA/LAT/OBL LT, XR KNEE SURVEY 1V AP ROSITA, XR HIP 3V PELV+ AP/LAT LT, XR CERVICAL 2V AP/LAT, XR SHLDR >/=3V AP/EUFEMIA AP/OTHR RT, XR SHLDR >/=3V AP/EUFEMIA AP/OTHR LT, XR LUMBAR 3V AP/LAT/L5-S1, XR SI JTS 2V AP PELV/AKINS DATE: 12/07/2023 10:10 AM INDICATION: Pain in multiple joints COMPARISON: None. FINDINGS: AP pelvis and both hips: No fracture or dislocation. No acute joint or soft tissue abnormality. Few pelvic vascular calcifications. 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 Milder osteoarthritis at the interphalangeal joints otherwise. No erosions. No fractures or dislocations. No soft tissue abnormality. AP view of the knees: Joint spaces are symmetrically maintained. No acute bone or soft tissue abnormality otherwise. Bilateral shoulders: No fracture or dislocation. No joint or soft tissue abnormality. Cervical spine: Moderate degenerative disc disease at C5-6. Mild multilevel facet joint arthrosis. No fracture or dislocation. No acute soft tissue abnormality. Lumbar spine: Moderately advanced degenerative disc disease at L5-S1. Moderate facet joint arthrosis at L4-5 and L5-S1. No fracture or dislocation. Normal alignment. No acute soft tissue abnormality. Sacroiliac joints: The sacroiliac joints are symmetric without evidence for erosions, fractures, or dislocations. The soft tissues are normal. IMPRESSION: See above. Distance Learning Unit Leader: VIV Transcribe Date/Time: Dec 07 2023 10:10A Dictated by : JEANETTE LUBIN MD This examination was interpreted and the report reviewed and electronically signed by: JEANETTE LUBIN MD on Dec 07 2023 10:17AM EST [id number] Normal [facility] XR SHLDR >/=3V AP/EUFEMIA AP/OTH R LTon 12-06-2023 XR SHLDR >/=3V AP/EUFEMIA AP/OTHR LT * * *Final Report* * * DATE OF EXAM: Dec 06 2023 3:13PM [id number] [id number] - XR SHLDR >/=3V AP/EUFEMIA AP/OTHR LT / PROCEDURE REASON: Pain in joint, multiple sites * * * * Physician Interpretation * * * * EXAM TITLE: XR HIP 3V PELV+ AP/LAT RT, XR HAND 3V PA/LAT/OBL RT, XR HAND 3V PA/LAT/OBL LT, XR KNEE SURVEY 1V AP ROSITA, XR HIP 3V PELV+ AP/LAT LT, XR CERVICAL 2V AP/LAT, XR SHLDR >/=3V AP/EUFEMIA AP/OTHR RT, XR SHLDR >/=3V AP/EFUEMIA AP/OTHR LT, XR LUMBAR 3V AP/LAT/L5-S1, XR SI JTS 2V AP PELV/AKINS DATE: 12/07/2023 10:10 AM INDICATION: Pain in multiple joints COMPARISON: None. FINDINGS: AP pelvis and both hips: No fracture or dislocation. No acute joint or soft tissue abnormality. Few pelvic vascular calcifications. 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 Milder osteoarthritis at the interphalangeal joints otherwise. No erosions. No fractures or dislocations. No soft tissue abnormality. AP view of the knees: Joint spaces are symmetrically maintained. No acute bone or soft tissue abnormality otherwise. Bilateral shoulders: No fracture or dislocation. No joint or soft tissue abnormality. Cervical spine: Moderate degenerative disc disease at C5-6. Mild multilevel facet joint arthrosis. No fracture or dislocation. No acute soft tissue abnormality. Lumbar spine: Moderately advanced degenerative disc disease at L5-S1. Moderate facet joint arthrosis at L4-5 and L5-S1. No fracture or dislocation. Normal alignment. No acute soft tissue abnormality. Sacroiliac joints: The sacroiliac joints are symmetric without evidence for erosions, fractures, or dislocations. The soft tissues are normal. IMPRESSION: See above. Distance Learning Unit Leader: VIV Transcribe Date/Time: Dec 07 2023 10:10A Dictated by : JEANETTE LUBIN MD This examination was interpreted and the report reviewed and electronically signed by: JEANETTE LUBIN MD on Dec 07 2023 10:17AM EST [id number] Normal [facility] XR SHLDR >/=3V AP/EUFEMIA AP/OTH R RTon 12-06-2023 XR SHLDR >/=3V AP/EUFEMIA AP/OTHR RT * * *Final Report* * * DATE OF EXAM: Dec 06 2023 3:13PM [id number] [id number] - XR SHLDR >/=3V AP/EUFEMIA AP/OTHR RT / PROCEDURE REASON: Pain in joint, multiple sites * * * * Physician Interpretation * * * * EXAM TITLE: XR HIP 3V PELV+ AP/LAT RT, XR HAND 3V PA/LAT/OBL RT, XR HAND 3V PA/LAT/OBL LT, XR KNEE SURVEY 1V AP ROSITA, XR HIP 3V PELV+ AP/LAT LT, XR CERVICAL 2V AP/LAT, XR SHLDR >/=3V AP/UEFEMIA AP/OTHR RT, XR SHLDR >/=3V AP/EUFEMIA AP/OTHR LT, XR LUMBAR 3V AP/LAT/L5-S1, XR SI JTS 2V AP PELV/AKINS DATE: 12/07/2023 10:10 AM INDICATION: Pain in multiple joints COMPARISON: None. FINDINGS: AP pelvis and both hips: No fracture or dislocation. No acute joint or soft tissue abnormality. Few pelvic vascular calcifications. 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 Milder osteoarthritis at the interphalangeal joints otherwise. No erosions. No fractures or dislocations. No soft tissue abnormality. AP view of the knees: Joint spaces are symmetrically maintained. No acute bone or soft tissue abnormality otherwise. Bilateral shoulders: No fracture or dislocation. No joint or soft tissue abnormality. Cervical spine: Moderate degenerative disc disease at C5-6. Mild multilevel facet joint arthrosis. No fracture or dislocation. No acute soft tissue abnormality. Lumbar spine: Moderately advanced degenerative disc disease at L5-S1. Moderate facet joint arthrosis at L4-5 and L5-S1. No fracture or dislocation. Normal alignment. No acute soft tissue abnormality. Sacroiliac joints: The sacroiliac joints are symmetric without evidence for erosions, fractures, or dislocations. The soft tissues are normal. IMPRESSION: See above. Distance Learning Unit Leader: VIV Transcribe Date/Time: Dec 07 2023 10:10A Dictated by : JEANETTE LUBIN MD This examination was interpreted and the report reviewed and electronically signed by: JEANETTE LUBIN MD on Dec 07 2023 10:17AM EST [id number] Normal [facility] XR SI JTS 2V AP PELV/FERGUSO Non 12-06-2023 XR SI JTS 2V AP PELV/AKINS * * *Final Report* * * DATE OF EXAM: Dec 06 2023 3:13PM AWX [id number] - XR SI JTS 2V AP PELV/AKINS / PROCEDURE REASON: Pain in joint, multiple sites * * * * Physician Interpretation * * * * EXAM TITLE: XR HIP 3V PELV+ AP/LAT RT, XR HAND 3V PA/LAT/OBL RT, XR HAND 3V PA/LAT/OBL LT, XR KNEE SURVEY 1V AP ROSITA, XR HIP 3V PELV+ AP/LAT LT, XR CERVICAL 2V AP/LAT, XR SHLDR >/=3V AP/EUFEMIA AP/OTHR RT, XR SHLDR >/=3V AP/EUFEMIA AP/OTHR LT, XR LUMBAR 3V AP/LAT/L5-S1, XR SI JTS 2V AP PELV/AKINS DATE: 12/07/2023 10:10 AM INDICATION: Pain in multiple joints COMPARISON: None. FINDINGS: AP pelvis and both hips: No fracture or dislocation. No acute joint or soft tissue abnormality. Few pelvic vascular calcifications. 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 Milder osteoarthritis at the interphalangeal joints otherwise. No erosions. No fractures or dislocations. No soft tissue abnormality. AP view of the knees: Joint spaces are symmetrically maintained. No acute bone or soft tissue abnormality otherwise. Bilateral shoulders: No fracture or dislocation. No joint or soft tissue abnormality. Cervical spine: Moderate degenerative disc disease at C5-6. Mild multilevel facet joint arthrosis. No fracture or dislocation. No acute soft tissue abnormality. Lumbar spine: Moderately advanced degenerative disc disease at L5-S1. Moderate facet joint arthrosis at L4-5 and L5-S1. No fracture or dislocation. Normal alignment. No acute soft tissue abnormality. Sacroiliac joints: The sacroiliac joints are symmetric without evidence for erosions, fractures, or dislocations. The soft tissues are normal. IMPRESSION: See above. Distance Learning Unit Leader: PSCB Transcribe Date/Time: Dec 07 2023 10:10A Dictated by : JEANETTE LUBIN MD This examination was interpreted and the report reviewed and electronically signed by: JEANETTE LUBIN MD on Dec 07 2023 10:17AM EST [id number] Normal [facility] ANAon 06-28-2021 AVA SCR (TITER) Negative Normal () [facility] Comment on above: Result Comment: Nega tive <1:80 Borderline 1:80 Positive >1:80 ICAP nomenclature: AC-0 For more information about Hep-2 cell patterns use ANApatterns.org, the official website for the International Consensus on Antinuclear Antibody (AVA) Patterns (ICAP). Performed At: [facility] [address] [place], [place] [id number] Elio Griffith PhD [id number] Performed At: [facility] [address] [id number] Claude Henley MD [id number] Performed By: #### L 500.64812, L500.63197, L500.38582 #### [facility] [address] [place] [address] #### L550.26413 #### [facility] [address] [place] [address] CCP-ABSon 06-28-2021 CCP-ABS > 250 High 0-19 [facility] Comment on above: Result Comment: Nega tive <20 Weak positive 20 - 39 Moderate positive 40 - 59 Strong positive >59 Performed By: #### L 700.92460, L750.05057, L700.22255, L700.77810, L700.99487, L750.95282, L700.08628, L750.64675, L700.48580, L750.75338, L700.75502 #### [facility] [address] [address] CENTROMERE B ABon 06-28-2021 CENTROMERE B AB < 0.2 Normal 0.0-0.9 [facility] Comment on above: Performed By: #### L 500.03782, L500.92936, L500.67994 #### [facility] [address] [place] [address] #### L550.51867 #### [facility] [address] [address] CHROMATIN ABon 06-28-2021 CHROMATIN ABS < 0.2 Normal 0.0-0.9 [facility] Comment on above: Performed By: #### L 500.80577, L500.35036, L500.47534 #### [facility] [address] [place], [place] [address] #### L550.40043 #### [facility] [address] [address] COMPL C4on 06-28-2021 COMPL C4 24 mg/dL Normal 12-38 [facility] Comment on above: Performed By: #### L 500.34981, L500.03168, L500.99413 #### [facility] [address] [place] [address] #### L550.26693 #### [facility] [address] [address] DNA DLB STR AABon 06-28-2021 DNA DLB STR AAB < 1 Normal 0-9 [facility] Comment on above: Result Comment: Nega tive <5 Equivocal 5 - 9 Positive >9 Performed By: #### L 700.67218, L750.22387, L700.11402, L700.31481, L700.29227, L750.91074, L700.37127, L750.88450, L700.15681, L750.99623, L700.66777 #### [facility] [address] [place] [address] JT ABS HOSPITAL INSURANCE REPRESENTATIVE/SMon 06-28-2021 HOSPITAL INSURANCE REPRESENTATIVE ANTIBODIES < 0.2 Normal 0.0-0.9 [facility] Comment on above: Performed By: #### L 500.61733, L500.81826, L500.16203 #### [facility] [address] [place] [address] #### L550.60726 #### [facility] [address] [address] JAVIER ABS < 0.2 Normal 0.0-0.9 [facility] Comment on above: Performed By: #### L 500.81714, L500.90637, L500.11110 #### [facility] [address] [place] [address] #### L550.91527 #### [facility] [address] [place] [address] CARMENZA 1 ANTIBODYon 06-28-2021 ANTI-CARMENZA-1 < 0.2 Normal 0.0-0.9 [facility] Comment on above: Performed By: #### L 500.61054, L500.16007, L500.28404 #### [facility] [address] [place] [address] #### L550.29764 #### [facility] [address] [place] [address] RIBOSOMAL P ABon 06-28-2021 RIBOSOMAL P AB < 0.2 Normal 0.0-0.9 [facility] Comment on above: Performed By: #### L 500.14335, L500.09003, L500.39114 #### [facility] [address] [place] [address] #### L550.41632 #### [facility] [address] [address] SCLERODERMA ABon 06-28-2021 SCLERO 70 ABS < 0.2 Normal 0.0-0.9 [facility] Comment on above: Performed By: #### L 500.51163, L500.28408, L500.59568 #### [facility] [address] [place], [place] [address] #### L550.18065 #### [facility] [address] [address] SJOGRENS ABSon 06-28-2021 SJOGREN'S SS-A < 0.2 Normal 0.0-0.9 [facility] Comment on above: Performed By: #### L 500.13554, L500.55623, L500.15947 #### [facility] [address] [place] [address] #### L550.25335 #### [facility] [address] [address] SJOGREN'S SS-B < 0.2 Normal 0.0-0.9 [facility] Comment on above: Performed By: #### L 500.53899, L500.88691, L500.91848 #### [facility] [address] [place] [address] #### L550.09974 #### [facility] [place] [id number] [place] [address] ALDOLASEon 06-27-2021 ALDOLASE 4.1 U/L Normal 3.3-10.3 [facility] Comment on above: Result Comment: Perf ormed At: [facility] [id number] Elio Griffith PhD [id number] Performed By: #### L 500.63998, L500.62576, L500.87187 #### [facility] [address] [place] [address] #### L550.17521 #### [facility] [address] [address] COMPL C3on 06-27-2021 COMPL C3 138 mg/dL Normal 82-167 [facility] Comment on above: Result Comment: Perf ormed At: [facility] [id number] Elio Griffith PhD [id number] Performed By: #### L 750.62588 #### [facility] [address] [address] BILI TOTALon 06-25-2021 BILI TOTAL 0.30 MG/DL Normal 0.2-1.0 [facility] Comment on above: Performed By: #### L 500.77382, L500.55693, L500.50502 #### [facility] [address] [place] [address] #### L550.00321 #### [facility] [address] [address] CKon 06-25-2021 CK [Catalytic activity/Vol] 80 U/L Normal 28-152 [facility] Comment on above: Result Comment: Slig ht Hemolysis, Result may be affected. NOTE NEW NORMAL RANGE DUE TO REAGENT CHANGE Performed By: #### L 500.10448, L500.28310, L500.48242 #### [facility] [address] [place] [address] #### L550.18808 #### [facility] [address] TPon 06-25-2021 Protein [Mass/Vol] 7.0 g/dL Normal 6.0-8.5 [facility] Comment on above: Performed By: #### L 500.67913, L500.20057, L500.05880 #### [facility] [address] [place] [address] #### L550.98470 #### [facility] [address] ANAon 03-08-2021 AVA SCR (TITER) Negative Normal () [facility] Comment on above: Result Comment: Nega tive <1:80 Borderline 1:80 Positive >1:80 ICAP nomenclature: AC-0 For more information about Hep-2 cell patterns use ANApatterns.org, the official website for the International Consensus on Antinuclear Antibody (AVA) Patterns (ICAP). Performed At: [facility] [id number] Elio Griffith PhD [id number] Performed At: [facility] [id number] Claude Henley MD [id number] Performed By: #### L 500.48945, L500.23370, L500.96489 #### [facility] [address] [place] [address] #### L550.96610 #### [facility] [address] CCP-ABSon 03-08-2021 CCP-ABS > 250 High 0-19 [facility] Comment on above: Result Comment: Nega tive <20 Weak positive 20 - 39 Moderate positive 40 - 59 Strong positive >59 Performed By: #### L 500.25717, L500.23267, L500.99965 #### [facility] [address] [place] [address] #### L550.36787 #### [facility] [address] [address] # [phone] CENTROMERE B ABon 03-08-2021 CENTROMERE B AB < 0.2 Normal 0.0-0.9 [facility] Comment on above: Performed By: #### L 500.28745, L500.31759, L500.73333 #### [facility] [address] [place] [address] #### L550.79362 #### [facility] [address] [address] CHROMATIN ABo 03-08-2021 CHROMATIN ABS < 0.2 Normal 0.0-0.9 [facility] Comment on above: Performed By: #### L 500.79823, L500.95247, L500.21795 #### [facility] [address] [place] [address] #### L550.57122 #### [facility] [address] [address] COMPL C4on 03-08-2021 COMPL C4 30 mg/dL Normal 12-38 [facility] Comment on above: Performed By: #### L 500.10475, L500.91697, L500.54824 #### [facility] [address] [place] [address] #### L550.88028 #### [facility] [address] [address] DNA DLB STR AABon 03-08-2021 DNA DLB STR AAB < 1 Normal 0-9 [facility] Comment on above: Result Comment: Nega tive <5 Equivocal 5 - 9 Positive >9 Performed By: #### L 500.71518, L500.53999, L500.44608 #### [facility] [address] [place] [address] #### L550.24313 #### [facility] [address] [place] [address] JT ABS HOSPITAL INSURANCE REPRESENTATIVE/SMon 03-08-2021 HOSPITAL INSURANCE REPRESENTATIVE ANTIBODIES < 0.2 Normal 0.0-0.9 [facility] Comment on above: Performed By: #### L 500.90065, L500.46796, L500.34987 #### [facility] [address] [place] [address] #### L550.66444 #### [facility] [address] [address] JAVIER ABS < 0.2 Normal 0.0-0.9 [facility] Comment on above: Performed By: #### L 500.47627, L500.62518, L500.82577 #### [facility] [address] [place] [address] #### L550.08035 #### [facility] [address] [place] [address] CARMENZA 1 ANTIBODYon 03-08-2021 ANTI-CARMENZA-1 < 0.2 Normal 0.0-0.9 [facility] Comment on above: Performed By: #### L 500.22602, L500.69413, L500.38800 #### [facility] [address] [place] [address] #### L550.69602 #### [facility] [address] [place] [address] RIBOSOMAL P ABon 03-08-2021 RIBOSOMAL P AB < 0.2 Normal 0.0-0.9 [facility] Comment on above: Performed By: #### L 500.85554, L500.76558, L500.14179 #### [facility] [address] [place] [address] #### L550.98044 #### [facility] [address] [address] SCLERODERMA ABon 03-08-2021 SCLERO 70 ABS < 0.2 Normal 0.0-0.9 [facility] Comment on above: Performed By: #### L 500.24306, L500.70711, L500.96698 #### [facility] [address] [place], [place] [address] #### L550.62102 #### [facility] [address] [address] SJOGRENS ABSon 03-08-2021 SJOGREN'S SS-A < 0.2 Normal 0.0-0.9 [facility] Comment on above: Performed By: #### L 500.84418, L500.88541, L500.30574 #### [facility] [address] [place] [address] #### L550.23255 #### [facility] [address] [address] SJOGREN'S SS-B < 0.2 Normal 0.0-0.9 [facility] Comment on above: Performed By: #### L 500.35350, L500.69114, L500.51982 #### [facility] [address] [place] [address] #### L550.37916 #### [facility] [address] [place] [address] COMPL C3on 03-07-2021 COMPL C3 172 mg/dL High 82-167 [facility] Comment on above: Result Comment: Perf ormed At: [facility] [address] [place] [id number] Elio Griffith PhD [id number] Performed By: #### L 750.74821 #### [facility] [address] [place] [address] BILI TOTALon 03-05-2021 BILI TOTAL 0.40 MG/DL Normal 0.2-1.0 [facility] Comment on above: Performed By: #### L 500.42096, L500.74709 #### [facility] [address] [place] [address] TPon 03-05-2021 Protein [Mass/Vol] 7.7 g/dL Normal 6.0-8.5 [facility] Comment on above: Performed By: #### L 500.04043, L500.69389 #### [facility] [address] [place] [address] MRI LOWER EXTREMITY RIGHT W JT WO CONTRASTon 02-13-2019 Patient Name: JIE LR ---MRI--- Exam Date/Time 02/13/2019 13:33:29 EST Exam MRI Low Ext Joint w/o Contrast Right Ordering Physician MD CORNELIUS, JUAN BAUTISTA Accession Number [id number] CPT4 Codes 53230 () Reason For Exam strain of muscle right hip Report Exam Type: MRI Low Ext Joint w/o Contrast Right Exam Date and Time: 02/13/2019 1:33 PM EST Demographics: Gender: Female; Age: 68 years Indication: Right hip pain; Comparison: None available TECHNIQUE: MRI of bilateral hips with dedicated imaging of the right hip was performed in three planes (axial, sagittal, and coronal) using a standard non-contrast protocol. FINDINGS: RIGHT HIP JOINT: Effusion: No hip joint effusion. Labrum: No labral tear by non-arthrogram MRI. Cartilage: No chondrosis or focal cartilage defect. Femoroacetabular impingement (LILY): Mild cam type femoral acetabular impingement morphology with an alpha angle of 60 degrees and mild subcortical edema at the anterior femoral head neck junction. Small osseous cam lesion. Normal acetabular anteversion. Normal lateral center edge angle. Survey images of the left demonstrate No joint effusion, secondary findings of labral tear, or osteoarthritis. OTHER OSSEOUS STRUCTURES and JOINTS: Alignment is anatomic. No acute fracture or osseous stress response. No avascular necrosis in either femoral head. No osteitis pubis at the pubic symphysis. Sacroiliac joints demonstrate no significant degenerative changes, evidence of sacroiliitis or joint effusion. Visualized lower lumbar spine demonstrates multilevel degenerative changes of the imaged spine. Loss of disc height at L5-S1. No suspicious osseous lesions. TENDONS and BURSAE: Rectus femoris tendon origins: Intact without tendinosis or tear. Iliopsoas tendons: Intact without tendinosis or tear. Hamstring tendon origins: Moderate right and mild left hamstring origin tendinosis. Low-grade undersurface tearing at the right hamstring origin as well as the left conjoined tendon origin. Gluteal tendons: Surgical changes of prior right gluteus minimus and medius repair with suture anchor at the greater tuberosity. There is moderate tendinosis of the right gluteus minimus and medius intermedius at the insertion with low-grade undersurface tearing of the tendons and relative sparing of the posterior gluteus minimus medius. Moderate left gluteus minimus and medius insertional tendinosis without high-grade tear. Bursae: Trace bilateral greater trochanteric bursitis. No iliopsoas bursitis. MUSCLES: Mild right gluteus minimus fatty atrophy at the iliac crest. No muscle strains. There is narrowing of the bilateral ischiofemoral spaces, severe on the right. Mild edema within the right quadratus femoris muscle. No significant edema within the left quadratus femoris muscle. OTHER: Sciatic nerves: Symmetric in size and signal. Preserved perineural fat planes. Pelvic viscera (only partially imaged): Unremarkable. IMPRESSION: 1. Surgical changes of prior right gluteus insertional tendon repair with suture anchor at the greater trochanter. 2. Moderate tendinosis of the right gluteus minimus and medius intermedius at the insertion with low-grade undersurface tearing. Mild right gluteus minimus fatty atrophy at the iliac crest. 3. Bilateral ischiofemoral impingement, right greater than left. 4. Moderate right and mild left hamstring origin tendinosis. Low-grade undersurface tearing at the right hamstring origin as well as the left conjoined tendon origin. 5. Mild bilateral hip osteoarthritis. Report Dictated on --- Final --- Dictated: 02/13/2019 3:54 pm Dictating Physician: MD MARTIN NEIL Signed Date and Time: 02/13/2019 4:21 pm Signed by: MD MARTIN NEIL Transcribed Date and Time: 02/13/2019 3:54 [facility] [place], [place] Results From [facility] - 02/13/2019 4:23 PM EST Patient Name: JIE LR ---MRI--- Exam Date/Time 02/13/2019 13:33:29 EST Exam MRI Low Ext Joint w/o Contrast Right Ordering Physician MD CORNELIUS, JUAN BAUTISTA Accession Number [id number] CPT4 Codes 10852 () Reason For Exam strain of muscle right hip Report Exam Type: MRI Low Ext Joint w/o Contrast Right Exam Date and Time: 02/13/2019 1:33 PM EST Demographics: Gender: Female; Age: 68 years Indication: Right hip pain; Comparison: None available TECHNIQUE: MRI of bilateral hips with dedicated imaging of the right hip was performed in three planes (axial, sagittal, and coronal) using a standard non-contrast protocol. FINDINGS: RIGHT HIP JOINT: Effusion: No hip joint effusion. Labrum: No labral tear by non-arthrogram MRI. Cartilage: No chondrosis or focal cartilage defect. Femoroacetabular impingement (LILY): Mild cam type femoral acetabular impingement morphology with an alpha angle of 60 degrees and mild subcortical edema at the anterior femoral head neck junction. Small osseous cam lesion. Normal acetabular anteversion. Normal lateral center edge angle. Survey images of the left demonstrate No joint effusion, secondary findings of labral tear, or osteoarthritis. OTHER OSSEOUS STRUCTURES and JOINTS: Alignment is anatomic. No acute fracture or osseous stress response. No avascular necrosis in either femoral head. No osteitis pubis at the pubic symphysis. Sacroiliac joints demonstrate no significant degenerative changes, evidence of sacroiliitis or joint effusion. Visualized lower lumbar spine demonstrates multilevel degenerative changes of the imaged spine. Loss of disc height at L5-S1. No suspicious osseous lesions. TENDONS and BURSAE: Rectus femoris tendon origins: Intact without tendinosis or tear. Iliopsoas tendons: Intact without tendinosis or tear. Hamstring tendon origins: Moderate right and mild left hamstring origin tendinosis. Low-grade undersurface tearing at the right hamstring origin as well as the left conjoined tendon origin. Gluteal tendons: Surgical changes of prior right gluteus minimus and medius repair with suture anchor at the greater tuberosity. There is moderate tendinosis of the right gluteus minimus and medius intermedius at the insertion with low-grade undersurface tearing of the tendons and relative sparing of the posterior gluteus minimus medius. Moderate left gluteus minimus and medius insertional tendinosis without high-grade tear. Bursae: Trace bilateral greater trochanteric bursitis. No iliopsoas bursitis. MUSCLES: Mild right gluteus minimus fatty atrophy at the iliac crest. No muscle strains. There is narrowing of the bilateral ischiofemoral spaces, severe on the right. Mild edema within the right quadratus femoris muscle. No significant edema within the left quadratus femoris muscle. OTHER: Sciatic nerves: Symmetric in size and signal. Preserved perineural fat planes. Pelvic viscera (only partially imaged): Unremarkable. IMPRESSION: 1. Surgical changes of prior right gluteus insertional tendon repair with suture anchor at the greater trochanter. 2. Moderate tendinosis of the right gluteus minimus and medius intermedius at the insertion with low-grade undersurface tearing. Mild right gluteus minimus fatty atrophy at the iliac crest. 3. Bilateral ischiofemoral impingement, right greater than left. 4. Moderate right and mild left hamstring origin tendinosis. Low-grade undersurface tearing at the right hamstring origin as well as the left conjoined tendon origin. 5. Mild bilateral hip osteoarthritis. Report Dictated on --- Final --- Dictated: 02/13/2019 3:54 pm Dictating Physician: MD MARTIN NEIL Signed Date and Time: 02/13/2019 4:21 pm Signed by: MD MARTIN NEIL Transcribed Date and Time: 02/13/2019 3:54 [place], [place] MRI Low Ext Joint w/o Contra st [facility] 02-13-2019 MRI Low Ext Joint w/o Contrast Right Patient Name: JIE LR MRI Exam Date/Time 02/13/2019 13:33:29 EST Exam MRI Low Ext Joint w/o Contrast Right Ordering Physician MD SHIELDS JOVAN RISTE Accession Number [id number] CPT4 Codes 47679 () Reason For Exam strain of muscle right hip Report Exam Type: MRI Low Ext Joint w/o Contrast Right Exam Date and Time: 02/13/2019 1:33 PM EST Demographics: Gender: Female; Age: 68 years Indication: Right hip pain; Comparison: None available TECHNIQUE: MRI of bilateral hips with dedicated imaging of the right hip was performed in three planes (axial, sagittal, and coronal) using a standard non-contrast protocol. FINDINGS: RIGHT HIP JOINT: Effusion: No hip joint effusion. Labrum: No labral tear by non-arthrogram MRI. Cartilage: No chondrosis or focal cartilage defect. Femoroacetabular impingement (LILY): Mild cam type femoral acetabular impingement morphology with an alpha angle of 60 degrees and mild subcortical edema at the anterior femoral head neck junction. Small osseous cam lesion. Normal acetabular anteversion. Normal lateral center edge angle. Survey images of the left demonstrate No joint effusion, secondary findings of labral tear, or osteoarthritis. OTHER OSSEOUS STRUCTURES and JOINTS: Alignment is anatomic. No acute fracture or osseous stress response. No avascular necrosis in either femoral head. No osteitis pubis at the pubic symphysis. Sacroiliac joints demonstrate no significant degenerative changes, evidence of sacroiliitis or joint effusion. Visualized lower lumbar spine demonstrates multilevel degenerative changes of the imaged spine. Loss of disc height at L5-S1. No suspicious osseous lesions. TENDONS and BURSAE: Rectus femoris tendon origins: Intact without tendinosis or tear. Iliopsoas tendons: Intact without tendinosis or tear. Hamstring tendon origins: Moderate right and mild left hamstring origin tendinosis. Low-grade undersurface tearing at the right hamstring origin as well as the left conjoined tendon origin. Gluteal tendons: Surgical changes of prior right gluteus minimus and medius repair with suture anchor at the greater tuberosity. There is moderate tendinosis of the right gluteus minimus and medius intermedius at the insertion with low-grade undersurface tearing of the tendons and relative sparing of the posterior gluteus minimus medius. Moderate left gluteus minimus and medius insertional tendinosis without high-grade tear. Bursae: Trace bilateral greater trochanteric bursitis. No iliopsoas bursitis. MUSCLES: Mild right gluteus minimus fatty atrophy at the iliac crest. No muscle strains. There is narrowing of the bilateral ischiofemoral spaces, severe on the right. Mild edema within the right quadratus femoris muscle. No significant edema within the left quadratus femoris muscle. OTHER: Sciatic nerves: Symmetric in size and signal. Preserved perineural fat planes. Pelvic viscera (only partially imaged): Unremarkable. IMPRESSION: 1. Surgical changes of prior right gluteus insertional tendon repair with suture anchor at the greater trochanter. 2. Moderate tendinosis of the right gluteus minimus and medius intermedius at the insertion with low-grade undersurface tearing. Mild right gluteus minimus fatty atrophy at the iliac crest. 3. Bilateral ischiofemoral impingement, right greater than left. 4. Moderate right and mild left hamstring origin tendinosis. Low-grade undersurface tearing at the right hamstring origin as well as the left conjoined tendon origin. 5. Mild bilateral hip osteoarthritis. Report Dictated on Final Dictated: 02/13/2019 3:54 pm Dictating Physician: MD MARTIN NEIL Signed Date and Time: 02/13/2019 4:21 pm Signed by: MD MARTIN NEIL Transcribed Date and Time: 02/13/2019 3:54 Normal [facility] Vital Signs Date Time Vital Sign Value Performing Clinician Facility 09-09-2024 13:290400 Body height 167.6 cm Inez Chadwick MD Work Phone: [facility] Comment on above: Patient reported 12-06-2023 13:29-0400 Body mass index (BMI) [Ratio] 24.21 kg/m2 Inez Chadwick MD Work Phone: [facility] 12-06-2023 13:29-0400 Body temperature 95.31 [degF] Inez Chadwick MD Work Phone: [facility] 12-06-2023 13:29-040 Body weight 68.04 kg Inez Chadwick MD Work Phone: [facility] 12-06-2023 13:29-0400 Diastolic blood pressure 81 mm[Hg] Inez Chadwick MD Work Phone: [facility] 12-06-2023 13:29-0400 Heart rate 78 /min Inez Chadwick MD Work Phone: [facility] 12-06-2023 13:29-0400 SaO2% (BldA) [Mass fraction] 99 % Inez Chadwick MD Work Phone: [facility] Comment on above: RA, resting 12-06-2023 13:29-0400 Systolic blood pressure 139 mm[Hg] Inez Chadwick MD Work Phone: [facility] Encounters Encounter Date Encounter Type Care Provider Facility Start: 01-14-2024 End: 01-14-2024 Telephone encounter Inez Chadwick MD Work Phone: [facility] Comment on above: Refill Request (New Prescription for Plaquenil) Start: 01-04-2024 End: 01-04-2024 Telephone encounter Monika Hernandez APRN.CNP Work Phone: [facility] [place] Start: 12-29-2023 End: 12-29-2023 Patient encounter procedure Inez Chadwick MD Work Phone: [facility] Comment on above: Pain in joint, multi ple sites (Primary Dx) Start: 12-29-2023 End: 12-29-2023 Telemedicine consultation with patient Inez Chadwick MD Work Phone: [facility] Start: 12-29-2023 End: 12-29-2023 ambulatory INEZ CHADWICK Facility:[facility] Start: 12-06-2023 End: 12-06-2023 ambulatory INEZSARABJIT CHADWICK Facility:[facility] Start: 12-06-2023 End: 12-06-2023 Subsequent hospital visit by physician Lelo Coon [facility] Comment on above: Pain in joint, multi ple sites [M25.50] Start: 12-06-2023 End: 12-06-2023 Patient encounter procedure Inez Chadwick MD Work Phone: [facility] Comment on above: Pain in joint, multi ple sites (Primary Dx); Osteoporosis, unspecified osteoporosis type, unspecified pathological fracture presence; Inflammatory polyarthropathy (HCC); Primary osteoarthritis involving multiple joints; Fibromyalgia; Malaise and fatigue; Vitamin D deficiency Start: 12-06-2023 End: 12-06-2023 ambulatory INEZSARABJIT CHADWICK Facility:[facility] Start: 12-03-2023 End: 12-03-2023 ambulatory ZOHRA S WEYGANDT Not Available Start: 06-22-2023 End: 06-22-2023 ambulatory UNIQUE WILL Not Available Start: 06-09-2023 End: 06-09-2023 ambulatory ZOHRA S WEYGANDT Not Available Start: 05-10-2023 End: 05-10-2023 ambulatory ZOHRA S WEYGANDT Not Available Start: 03-05-2021 End: 03-05-2021 Subsequent hospital visit by physician Damien Jimenes MD Work Phone: [facility] Comment on above: M05.79, I73.00, M19. 049 Start: 02-13-2019 End: 02-13-2019 Subsequent hospital visit by physician Juan Shields [facility] Comment on above: Arrived Procedures Date Procedure Procedure Detail Performing Clinician Start: 12-06-2023 Radex spine cervical 2 or 3 views Inez Chadwick MD Work Phone: Start: 02-13-2019 Mri any jt lower ext rem w/o contrast matrl Juan Cesar Cornelius Work Phone: Start: 10-15-2009 Adult depression screening assessment Damien Jimenes MD Work Phone: Plan of Treatment Date Care Activity Detail Author Start: 01-02-2032 Urine microalbumin profile DTaP,Tdap,Td Vaccine (3 - Td or Tdap) [facility] Start: 12-05-2026 Diabetes Screening Diabetes Screenin g [facility] Start: 04-24-2024 End: 04-24-2024 Patient encounter procedure 04/24/2024 2:20 PM EST Office Visit [facility] [address] [place], [place] [id number] Inez Chadwick MD [address] [facility] [facility] [address] [place], [place] [id number] f/u on osteoarthritis----dmk [facility] Comment on above: f/u on osteoarthriti s----dmk Start: 02-17-2024 End: 02-17-2024 Patient encounter procedure 02/17/2024 1:00 PM EST Office Visit [facility] [address] [place] [address] Monika Hernandez APRN.CORPORATE TRAINER [address] [place] [address] Joint pain---ref by Dr. Chadwick rheumatology-=---dmk [facility] Comment on above: Joint pain---ref by Dr. Chadwick rheumatology-=---dmk Start: 12-29-2023 End: 12-29-2023 Patient encounter procedure 12/29/2023 10:40 AM EDT [facility] [address] [place] [address] Inez Chadwick MD [address] [place] [address] Labs x rays [facility] Comment on above: Labs x rays Start: 11-28-2023 Covid-19 Vaccine ( season) Covid-19 Vaccine ( season) [facility] Start: 11-28-2023 Covid-19 Vaccine () Covid-19 Vaccine () [facility] Start: 11-28-2023 Influenza vaccination Influenza Vacc ine (#1) [facility] Start: 03-29-2023 Advance Directive Discussion Advance Directive Discussion [facility] Start: 11-27-2020 Influenza vaccination INFLUENZA (#1) [facility] Start: 11-27-2018 Influenza vaccination Flu vaccine (# 1) [place], [place] Start: 2017 ADVANCE DIRECTIVE DISCUSSION ADVANCE DIRECTIVE DISCUSSION [facility] Start: 2017 BONE DENSITY BONE DENSITY [facility] Start: 2017 DEXA (modify frequen cy per FRAX score) DEXA (modify frequency per FRAX score) [place], [place] Start: 2017 Pneumococcal 65+ yea rs Vaccine (1 of 1 - PPSV23) Pneumococcal 65+ years Vaccine (1 of 1 - PPSV23) [place] Start: 2017 PNEUMOVAX AGE 65 AND OVER WITH 5YR LOOKBACK (#1) PNEUMOVAX AGE 65 AND OVER WITH 5YR LOOKBACK (#1) [facility] Start: 2017 Screening for osteoporosis Bone Density Screening [facility] Start: 08-31-2011 DIABETES SCREEN DIABETES SCREEN [facility] Start: 10-15-2010 Adult depression screening assessment DEPRESSION SCREENING [facility] Start: 2002 Breast cancer screen Breast cancer s creen [place], [place] Start: 2002 Colon cancer screen colonoscopy Colon cancer screen colonoscopy [place], [place] Start: 2002 Shingles Vaccine (1 of 2) Shingles Vaccine (1 of 2) [place] Start: 2002 SHINGRIX VACCINE (1 of 2) SHINGRIX VACCINE (1 of 2) [facility] Start: 1997 COLOGUARD (FIT-DNA) COLOGUARD (FIT-D NA) [facility] Start: [address] [facility] Start: 1997 COLORECTAL CANCER SCREENING COLORECTAL CANCER SCREENING [facility] Start: [address] COLONOGRAPHY [facility] Start: 1997 FECAL OCCULT BLOOD FECAL OCCULT BLOO D [facility] Start: 1997 Lipid panel Lipid Screening [facility] Start: 1997 L[address] SCREEN LIPID SCREEN [facility] Start: 1997 Screening for malign ant neoplasm of colon [facility] Start: 1997 SIGMOIDOSCOPY SIGMOIDOSCOPY [facility] Start: 1992 Lipid screen Lipid screen [place], [place] Start: [address] [facility] Start: 1992 Screening for malign ant neoplasm of breast Mammogram Screening [facility] Start: 11-24-1971 Urine microalbumin profile DTAP,TDAP,TD (1 - Tdap) [facility] Start: 1970 Anxiety Screening Anxiety Screening [facility] Start: 1970 Depression Screening Depression Scre ening [facility] Start: 1970 HEPATITIS C SCREENING HEPATITIS C [facility] Start: 1970 Hepatitis C screening Hepatitis C [facility] Start: 1964 COVID-19 VACCINE (1) COVID-19 VACCIN E (1) [facility] Start: 11-24-1963 DTaP/Tdap/Td vaccine (1 - Tdap) DTaP/Tdap/Td vaccine (1 - Tdap) [place], [place] Start: 1952 Hepatitis C screen Hepatitis C scree n [place], [place] End: 01-04-2025 DXA Skeletal system.axial Views for bone density DXA-AXIAL SKELETON Radiology Routine Osteoporosis, unspecified osteoporosis type, unspecified pathological fracture presence 1 Occurrences starting 12/06/2023 until 01/04/[address] [facility] Work Phone: Comment on above: 1 Occurrences starti ng 12/06/2023 until 01/04/2025 Immunizations Immunization Date Immunization Notes Care Provider Renny abreu 12-25-2022 influenza virus vacc ine, unspecified formulation Xr 2 [facility] Payers Date Payer Category Payer Medicare MMO MEDICARE MMO [employer]VANTAGE HMO [id number] 2023-Present [phone] [address] [place] [address] HMO [id number] 2023 Medicare [id number] 2015 Unknown MMO MMO [employer]US [id number] 2015-Present [phone] [address] [place] [address] PPO [id number] 1950 Unknown [id number] 1950 Unknown [id number] 1950 Unknown [id number] 1950 Unknown [id number] Social History Date Type Detail [facility] [employer] Start: 1950 Sex Assigned At Not on file [facility] [employer] [facility] Never smoked tobacco [facility] Start: 08-13-2015 Alcohol intake Not Asked Lakhwinder herman [facility] Start: 12-06-2023 History of Social function [facility] Start: 12-06-2023 Area Deprivation Index Area De privation Index Answer Date Recorded National Score (1-100), lower number is lower risk 48 12/06/2023 State Score (1-10), lower number is lower risk 2 12/06/2023 Data from: [email or web address] . Last address used for calculation [address] 12/06/2023 [facility] National Score (1-10 0), lower number is lower risk 48 [facility] Start: 1950 Sex assigned at Female [facility] Start: 11-29-2023 Gender identity Identifies as female gender (finding) [facility] Start: 11-29-2023 Sexual orientation Heterosexual (fin magui) [facility] Clinical Notes 12-06-2023 to 01-14-2024 Telephone Encounter - Lamonte Pedersen LPN - 01/14/2024 1:01 PM EDTTelephone Encounter - Lamonte Pedersen LPN - 01/14/2024 1:01 PM EDTTelephone Encounter - Lamonte Pedersen LPN - 01/14/2024 12:59 PM EDT Note Date & Type Note Facility 01-14-2024 Telephone encounter Note Patient called for refill on Plaquenil. This will be a new prescription from our office. Previously prescribed by former [employer]. Patient was getting the prescription from [facility] with instructions to take daily, but she reports the dose below. Patient is taking Plaquenil 200 mg PO and she has been alternating one tablet (200 mg) and two tablets (400 mg) every other day. Patient last appointment: 12/29/2023 Next Appointment: 04/24/2024 Request is for script(s) to be escript to pharmacy. [facility] [place] [address] [phone] [phone] [facility] 01-14-2024 Miscellaneous Notes Patient called for refill on Plaquenil. This will be a new prescription from our office. Previously prescribed by former [employer]. Patient was getting the prescription from [facility] with instructions to take daily, but she reports the dose below. Patient is taking Plaquenil 200 mg PO and she has been alternating one tablet (200 mg) and two tablets (400 mg) every other day. Patient last appointment: 12/29/2023 Next Appointment: 04/24/2024 Request is for script(s) to be escript to pharmacy. [facility] [place] [address] [address] [facility] [phone] Lamonte Pedersen LPN ----- Message from Bre Vera sent at 01/14/2024 12:36 PM EDT ----- Regarding: Daniel/ Dr. Yu MD/ Question Subject Line Format: Daniel/ Dr. Yu MD/ Question = Patient: Jie Lr Date of : 1950 Primary Care Provider: Horacio Ivey MD Patient has been identified by name and Date of (Y/N): y Patient: Jie Lr Date of : 1950 Provider for this encounter: Horacio Ivey MD Reason for the call/escalation: Question Was Patient Referred to [facility]/Seek Emergency Treatment (Y/N): n Did Patient Agree (Y/N): n Was An Attempt Made To Transfer The Patient To The Office (Y/N): n Were You Able To Reach Someone At The Office (Y/N): n If Yes - Patient Was Transferred To (Caregivers Name): n If No - Which [facility] Leadership Mathematics Education Professor Did You Speak With Regarding This Patient: n Was an appointment scheduled (Y/N): y Reason patient was requesting visit (RFV/signs and symptoms/diagnosis) : pt had a question for Dr. Chadwick, she states she is seeing her pcp soon and wanted to know if she should see her pcp for her rheumatology medications or should she get her medications from Dr. Chadwick Person calling if other than patient: no Return call to if other than patient: no Best contact number: [phone] Thank you, Bre Castrejon January 14, 2024 12:36 PM documented in this encounter [facility] 01-14-2024 Telephone encounter Note ----- Message from Bre Vera sent at 01/14/2024 12:36 PM EDT ----- Regarding: Danile/ Dr. Yu MD/ Question Subject Line Format: Daniel/ Dr. Yu MD/ Question = Patient: Jie Lr Date of : 1950 Primary Care Provider: Horacio Ivey MD Patient has been identified by name and Date of (Y/N): y Patient: Jie Lr Date of : 1950 Provider for this encounter: Horacio Ivey MD Reason for the call/escalation: Question Was Patient Referred to [facility]/Seek Emergency Treatment (Y/N): n Did Patient Agree (Y/N): n Was An Attempt Made To Transfer The Patient To The Office (Y/N): n Were You Able To Reach Someone At The Office (Y/N): n If Yes - Patient Was Transferred To (Caregivers Name): n If No - Which [facility] Leadership Mathematics Education Professor Did You Speak With Regarding This Patient: n Was an appointment scheduled (Y/N): y Reason patient was requesting visit (RFV/signs and symptoms/diagnosis) : pt had a question for Dr. Chadwick, she states she is seeing her pcp soon and wanted to know if she should see her pcp for her rheumatology medications or should she get her medications from Dr. Chadwick Person calling if other than patient: no Return call to if other than patient: no Best contact number: [phone] Thank you, Bre Castrejon January 14, 2024 12:[address] [facility] 01-04-2024 Telephone encounter Note 01/03- Received a referral from for patient to be seen by pain management for pain in joints, LVM to schedule. Lorena Pham [facility] 01-04-2024 Miscellaneous Notes 01/03- Received a referral from for patient to be seen by pain management for pain in joints, LVM to schedule. Lorena Pham documented in this encounter [facility] 12-29-2023 Note HNO ID: [id number] Author: INEZ CHADWICK MD Service: ? Author Type: Physician Type: Progress Notes Filed: 12/29/2023 15:01 Note Text: RHEUMATOLOGY NEW PATIENT NOTE REFERRING PHYSICIAN: Self CHIEF COMPLAINT: Patient presents with: Joint Pain HPI: Jie Lr is a 73 year old female who presents with joint pain. Ache all over. Challenging year upper, back, shoulder blades, low back, legs, hips. Flare ups stress. She takes aspirin for pain. She takes on Cymbalta. Pain has been worse this year. She was started on Plaqu[facility]il by [facility] for [facility]. May have helped. Eye exams have been okay. She has seen different rheumatologists. She was also diagnosed with fibromyalgia. Trigger thumb injection. Hip pain - PRP injections. IT band syndrome. Bunions surgery Total Hysterectomy 2001. No fractures. Reports falls. Due for DEXA. Last BMD 2019 osteopenia Cataract Thyroid disease Allergic to sulfa Family history of autoimmune disease: cousin with RA Smoking status: Tobacco Use: Never Rheumatology REVIEW OF SYSTEMS: Constitutional: Recent Weight Change: YES gaining Fatigue: YES episodic Fever: No Night sweats: No Heent: Alopecia: No H/o Inflammatory eye disease (iritis/scleritis): No Hearing loss: No Frequent sinusitis: No Oral ulcers: No Sicca: No Parotid swelling: No Hoarseness: No Dysphagia: No Heme/lymph: Lymphadenopathy: No Hematological abnormalities (anemia, thrombocytopenia, leukopenia): No Abnormal bleeding: No Skin: Malar or discoid lesions: No Photosensitivity: No Other rashes: No Raynaud's phenomenon: YES white Hives: No Tightness: No Nodules/bumps: No Easy Bruising: No Nail changes: No H/o psoriasis: No Gastroenterology: Nausea: No Vomiting: No Change in bowel movements: No Heartburn: No Respiratory: Dry cough/SOB: No Cardiovascular: Pain in chest: No Musculoskeletal: Per HPI Genitourinary: Vaginal dryness: No Rash/ulcers: No Neurological: Headaches: YES Sensitivity or pain of hands and/or feet: No Psychiatry: Anxiety: No Depression: No Poor sleep: YES KATERINA on CPAP H/o loss: No H/o thrombosis: No Increased susceptibility to infection: No PAST MEDICAL HISTORY Diagnosis Date Other and unspecified hyperlipidemia Rosacea Temporomandibular joint disorders, unspecified PAST SURGICAL HISTORY Procedure Laterality Date VAGINAL HYSTERECTOMY BSO Current Outpatient Medications Medication Sig galcanezumab-gnlm (EMGALITY PEN SUBCUTANEOUS) Inject subcutaneously. ubidecarenone (COENZYME Q10) 100 mg tab Take by mouth. calcium carbonate/vitamin D3 (CALTRATE 600 PLUS D ORAL) Take by mouth. mv-mn/folic ac/calcium/vit K1 (WOMEN'S 50 PLUS MULTIVITAMIN ORAL) Take by mouth. duloxetine HCl (CYMBALTA ORAL) Take 30 mg by mouth. rosuvastatin (CRESTOR) 5 mg tablet Take 5 mg by mouth. Every three days omeprazole (PRILOSEC) 20 mg capsule Take 20 mg by mouth once daily. Aspirin-Caffeine 400-32 mg tab Take by mouth as needed. wlfpvgzkho-txmprut-ipdxyugx-codei ne (FIORINAL WITH CODEINE) capsule Take 1 capsule by mouth every 4 hours as needed. rizatriptan (MAXALT PLODDING OPERATOR) 5 mg disintegrating tablet Take 5 mg by mouth as needed. May repeat in 2 hours if needed DINORAH 60 MG CAP 60 mg. hydroxychloroquine (PLAQUENIL) 200 mg tablet Take 200 mg by mouth once daily. Cholecalciferol, Vitamin D3, 2,000 unit cap Take by mouth once daily. naproxen sodium(ALEVE 220 MG TAB) Take one(1) tablet twice daily. SYNTHROID 125MCG TABLET Take one(1) tablet daily. No current facility-administered medications for this visit. ALLERGIES Allergen Reactions Dust Mites Rash FAMILY HISTORY Problem Relation Age of Onset Headache Mother Headache Father Cancer Father Brain tumor Social History Tobacco Use Smoking status: Never Occupation: Employer And Job Title: None on file Years Of Education Completed: Not specified Marital Status: History Review: I have reviewed and modified as needed, the following during this visit: Allergies, Past Medical History, Past Surgical History, Past Family History, Past Social History. There were no vitals taken for this visit. Physical Exam GENERAL: Well appearing, alert, comfortable, in no acute distress, well-hydrated, well nourished. HEENT: Negative for external ears normal. Canals are clear. Both TMs visualized and are normal. Eye Exam normal. External nose normal, no nasal ulcer or throat ulcer. NECK: NECK Supple, no adenopathy; thyroid symmetric, normal size, no bruits CARDIAC: regular rate and rhythm, No murmur asculated., and Equal peripheral pulses RESPIRATORY: Lungs clear to auscultation. No wheezing, rhonchi, rales VASCULAR: RRR without murmur, gallop, or rubs. No ectopy. ABDOMEN: Soft, non tender. BS active. No masses or organomegaly. LYMPHATIC: Negative for adenopathy in the neck, axillae, groin, supra (more content not included)... [facility] 12-29-2023 History of Present illness Narrative RHEUMATOLOGY NEW PATIENT NOTE REFERRING PHYSICIAN: Self CHIEF COMPLAINT: Patient presents with: Joint Pain HPI: Jie Lr is a 73 year old female who presents with joint pain. Ache all over. Challenging year upper, back, shoulder blades, low back, legs, hips. Flare ups stress. She takes aspirin for pain. She takes on Cymbalta. Pain has been worse this year. She was started on Plaqu[facility]il by [facility] for [facility]. May have helped. Eye exams have been okay. She has seen different rheumatologists. She was also diagnosed with fibromyalgia. Trigger thumb injection. Hip pain - PRP injections. IT band syndrome. Bunions surgery Total Hysterectomy 2001. No fractures. Reports falls. Due for DEXA. Last BMD 2019 osteopenia Cataract Thyroid disease Allergic to sulfa Family history of autoimmune disease: cousin with RA Smoking status: Tobacco Use: Never Rheumatology REVIEW OF SYSTEMS: Constitutional: Recent Weight Change: YES gaining Fatigue: YES episodic Fever: No Night sweats: No Heent: Alopecia: No H/o Inflammatory eye disease (iritis/scleritis): No Hearing loss: No Frequent sinusitis: No Oral ulcers: No Sicca: No Parotid swelling: No Hoarseness: No Dysphagia: No Heme/lymph: Lymphadenopathy: No Hematological abnormalities (anemia, thrombocytopenia, leukopenia): No Abnormal bleeding: No Skin: Malar or discoid lesions: No Photosensitivity: No Other rashes: No Raynaud's phenomenon: YES white Hives: No Tightness: No Nodules/bumps: No Easy Bruising: No Nail changes: No H/o psoriasis: No Gastroenterology: Nausea: No Vomiting: No Change in bowel movements: No Heartburn: No Respiratory: Dry cough/SOB: No Cardiovascular: Pain in chest: No Musculoskeletal: Per HPI Genitourinary: Vaginal dryness: No Rash/ulcers: No Neurological: Headaches: YES Sensitivity or pain of hands and/or feet: No Psychiatry: Anxiety: No Depression: No Poor sleep: YES KATERINA on CPAP H/o loss: No H/o thrombosis: No Increased susceptibility to infection: No PAST MEDICAL HISTORY Diagnosis Date Other and unspecified hyperlipidemia Rosacea Temporomandibular joint disorders, unspecified PAST SURGICAL HISTORY Procedure Laterality Date VAGINAL HYSTERECTOMY BSO Current Outpatient Medications Medication Sig galcanezumab-gnlm (EMGALITY PEN SUBCUTANEOUS) Inject subcutaneously. ubidecarenone (COENZYME Q10) 100 mg tab Take by mouth. calcium carbonate/vitamin D3 (CALTRATE 600 PLUS D ORAL) Take by mouth. mv-mn/folic ac/calcium/vit K1 (WOMEN'S 50 PLUS MULTIVITAMIN ORAL) Take by mouth. duloxetine HCl (CYMBALTA ORAL) Take 30 mg by mouth. rosuvastatin (CRESTOR) 5 mg tablet Take 5 mg by mouth. Every three days omeprazole (PRILOSEC) 20 mg capsule Take 20 mg by mouth once daily. Aspirin-Caffeine 400-32 mg tab Take by mouth as needed. kdriizrnfb-jxvdzli-qrfaydmn-codei ne (FIORINAL WITH CODEINE) capsule Take 1 capsule by mouth every 4 hours as needed. rizatriptan (MAXALT PLODDING OPERATOR) 5 mg disintegrating tablet Take 5 mg by mouth as needed. May repeat in 2 hours if needed DINORAH 60 MG CAP 60 mg. hydroxychloroquine (PLAQUENIL) 200 mg tablet Take 200 mg by mouth once daily. Cholecalciferol, Vitamin D3, 2,000 unit cap Take by mouth once daily. naproxen sodium(ALEVE 220 MG TAB) Take one(1) tablet twice daily. SYNTHROID 125MCG TABLET Take one(1) tablet daily. No current facility-administered medications for this visit. ALLERGIES Allergen Reactions Dust Mites Rash FAMILY HISTORY Problem Relation Age of Onset Headache Mother Headache Father Cancer Father Brain tumor Social History Tobacco Use Smoking status: Never Occupation: Employer And Job Title: None on file Years Of Education Completed: Not specified Marital Status: History Review: I have reviewed and modified as needed, the following during this visit: Allergies, Past Medical History, Past Surgical History, Past Family History, Past Social History. There were no vitals taken for this visit. Physical Exam GENERAL: Well appearing, alert, comfortable, in no acute distress, well-hydrated, well nourished. HEENT: Negative for external ears normal. Canals are clear. Both TMs visualized and are normal. Eye Exam normal. External nose normal, no nasal ulcer or throat ulcer. NECK: NECK Supple, no adenopathy; thyroid symmetric, normal size, no bruits CARDIAC: regular rate and rhythm, No murmur asculated., and Equal peripheral pulses RESPIRATORY: Lungs clear to auscultation. No wheezing, rhonchi, rales VASCULAR: RRR without murmur, gallop, or rubs. No ectopy. ABDOMEN: Soft, non tender. BS active. No masses or organomegaly. LYMPHATIC: Negative for adenopathy in the neck, axillae, groin, supraclavicular and auricular. NEURO: Motor and sensory exam normal MOTOR: Normal; including tone, gait, stressed gait, power and coordination. SKIN: Negative for alopecia, skin rash, malar rash, skin lesion, skin ulcer, pits, thickening, color changes, telangiectasias, nail changes, nail ridging, nail pitting, onycholysis MUSCULOSKELETAL: DIPS: Normal PIPS: Normal MCPs: Normal Wrists: Normal Elbows: Normal Shoulders: Normal C-Spine: Normal Hips: Normal Knees: Normal Ankles: Normal MTPs / Toes: Normal Arches: Normal Summary of old labs/radiology: Review/request of outside labs and imaging: Pertinent labs: Glucose 75 08/30/2008 ALT 15 08/30/2008 WBC 6.38 08/30/2008 Hemoglobin 14.1 08/30/2008 Platelet Count 257 08/30/2008 WSR 7 08/13/2015 CRP 0.1 08/13/2015 Serology: Latest Reference Range & Units 08/13/15 14:24 08/13/15 15:53 03/05/21 14:36 06/25/21 16:06 Albumin 3.37 - 4.23 gm/dL 3.97 Alpha 1 Globulin 0.18 - 0.31 gm/dL 0.23 Alpha 2 Globulin 0.52 - 0.97 gm/dL 0.67 Beta Globulin 0.84 - 1.36 gm/dL 1.10 Gamma Globulin 0.70 - 1.44 gm/dL 1.13 Interpretation (Prot Electro) SEE COMMENT SPE Staff Review Reviewed by Kate Horvath MD ([id number]) M-Protein Location N/A M-Protein Concentration 0.00 gm/dL 0.00 Protein, Urine Random 0 - 20 mg/dL 5 Albumin, Urine (Prot Electro) % 29.7 Alpha 1 Globulin, Urine >0 % 4.5 Alpha 2 Globulin, Urine % 13.5 Beta Globulin, Urine % 33.4 Gamma Globulin, Urine % 18.9 AVA Negative Negative AVA Titer Negative Negative AVA Pattern Not applicable for negative result. DNA Antibody w/Confirmation <30 IU/mL <12 HOSPITAL INSURANCE REPRESENTATIVE Antibody 0.0 - 0.9 AI < 0.2 < 0.2 Anti-SSB <1.0 AI <0.2 Anti-SSA <1.0 AI <0.2 Carmenza 1 Antibody 0.0 - 0.9 AI < 0.2 < 0.2 Chromatin Ab 0.0 - 0.9 AI < 0.2 < 0.2 Rheumatoid Factor <20 IU/mL 15 Lyme Abs, IgG/IgM <0.75 TV 0.24 Interpretation (Lyme Abs/WB) No evidence of antibodies to Borrelia burgdorferi. No evidence of antibodies to Borrelia burgdorferi. CCP Antibody, IgG <20 Units >250 (H) Comment (Urine Prot Electro) Monoclonal Protein analysis (immunofixation) is not indicated. Comment (Serum Prot Electro) Monoclonal Protein analysis (immunofixation) is not indicated. Interpretation (Urine Electro) SEE COMMENT Staff Review (Urine Electro) Reviewed by Kate Horvath MD ([id number]) (H): Data is abnormally high Pertinent imaging: FINDINGS: AP pelvis and both hips: No fracture or dislocation. No acute joint or soft tissue abnormality. Few pelvic vascular calcifications. 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 Milder osteoarthritis at the interphalangeal joints otherwise. No erosions. No fractures or dislocations. No soft tissue abnormality. AP view of the knees: Joint spaces are symmetrically maintained. No acute bone or soft tissue abnormality otherwise. Bilateral shoulders: No fracture or dislocation. No joint or soft tissue abnormality. Cervical spine: Moderate degenerative disc disease at C5-6. Mild multilevel facet joint arthrosis. No fracture or dislocation. No acute soft tissue abnormality. Lumbar spine: Moderately advanced degenerative disc disease at L5-S1. Moderate facet joint arthrosis at L4-5 and L5-S1. No fracture or dislocation. Normal alignment. No acute soft tissue abnormality. Sacroiliac joints: The sacroiliac joints are symmetric without evidence for erosions, fractures, or dislocations. The soft tissues are normal. Assessment and Plan (M25.50) Pain in joint, multiple sites (primary encounter diagnosis) 73-year-old female is here for joint pain. Patient also has chronic joint pain and osteoporosis. She was diagnosed with inflammatory arthritis high titer CCP and has been on hydroxychloroquine. She reports increased stress and overactivity this year which could be causing more pain. Also concern for osteoarthritis. Continue hydroxychloroquine with yearly eye exams. Pain is predominantly due to osteoarthritis. Reviewed x-rays. [facility] on 12/29/23 CONSULT TO PAIN MGT No orders of the defined types were placed in this encounter. No follow-ups on file. Inez Chadwick MD I spent a total of 20 minutes on the date of the service which included preparing to see the patient, [id number] patient care, completing clinical documentation, obtaining and/or reviewing separately obtained history, performing a medically appropriate examination, counseling and educating the patient/family/caregiver, ordering medications, tests, or procedures, independently interpreting results (not separately reported), and communicating results to the patient/family/caregiver. documented in this encounter [facility] 12-06-2023 History of Present illness Narrative Radiology Service Progress Note PATIENT NAME: Jie Lr DATE OF SERVICE: December 06, 2023 TIME: 2:57 PM PATIENT IDENTITY VERIFICATION COMPLETED USING TWO (2) IDENTIFIERS: Name and Date of confirmed by patient verbally. FALL SCREENING: Has the patient had 2 falls in the last year or 1 fall with injury or currently using an Ambulatory Assistive Device (Walker, Cane, Wheelchair, Crutches, etc.)? No PATIENT GENDER DATA: Female. status: : No status: NO. PATIENT RELEVANT IMPLANT DATA REVIEWED: Not Applicable PATIENT PRESENTS WITH AN IMPLANTABLE OR ATTACHED FLUID PUMP OPERATOR: No RADIOLOGY DEPARTMENT: General X-ray: Exam(s) Completed: Spine X-Ray(s): Cervical AP / LAT and Lumbar AP / LAT / L5-S1 Pelvis X-Ray: Pelvis with Hip Bilateral and sacroiliac joints Lower Extremity X-Ray(s): Knee, AP Only Bilateral Upper Extremity X-Ray(s): Shoulder, AP / TRUE AP / AXILLARY bilateral and Hand, bilateral PERIPHERAL IV DATA: Not applicable SIGNED BY: DARYL Arceo) December 06, 2023 2:57 PM documented in this encounter [facility] 12-06-2023 Note HNO ID: [id number] Author: JANICE LANE RT(R) Service: ? Author Type: Interactive Media Specialist Type: Progress Notes Filed: 12/06/2023 14:59 Note Text: Radiology Service Progress Note PATIENT NAME: Jie Lr DATE OF SERVICE: December 06, 2023 TIME: 2:57 PM PATIENT IDENTITY VERIFICATION COMPLETED USING TWO (2) IDENTIFIERS: Name and Date of confirmed by patient verbally. FALL SCREENING: Has the patient had 2 falls in the last year or 1 fall with injury or currently using an Ambulatory Assistive Device (Walker, Cane, Wheelchair, Crutches, etc.)? No PATIENT GENDER DATA: Female. status: : No status: NO. PATIENT RELEVANT IMPLANT DATA REVIEWED: Not Applicable PATIENT PRESENTS WITH AN IMPLANTABLE OR ATTACHED FLUID PUMP OPERATOR: No RADIOLOGY DEPARTMENT: General X-ray: Exam(s) Completed: Spine X-Ray(s): Cervical AP / LAT and Lumbar AP / LAT / L5-S1 Pelvis X-Ray: Pelvis with Hip Bilateral and sacroiliac joints Lower Extremity X-Ray(s): Knee, AP Only Bilateral Upper Extremity X-Ray(s): Shoulder, AP / TRUE AP / AXILLARY bilateral and Hand, bilateral PERIPHERAL IV DATA: Not applicable SIGNED BY: RT Marielos(R) December 06, 2023 2:57 PM [facility] 12-06-2023 Instructions Inez Chadwick MD - 12/06/2023 1:40 PM EDT BONE MINERAL DENSITY PATIENT INSTRUCTIONS ======== Bone mineral density testing measures the amount of calcium in certain parts of your bones. This information determines how strong your bones are. The test is used to detect osteoporosis, a disease in which the bone's mineral content and density are low, increasing a person's risk of fractures. The lumbar spine (lower back) and the hip are the skeletal sites usually examined. For the test, remember that: 1. You cannot take this test if you are . 2. Eat a normal diet on the day of the test. 3. Take your medications as you normally would. 4. DO NOT take calcium supplements (such as Tums) for 24 hours before the test. 5. On the day of the test, leave valuables (jewelry or credit cards) at home. 6. The test should be performed prior to oral, rectal or IV contrast studies, or at least 7 days after any of these studies. For the test, you may be asked to wear a hospital gown. You will lie on your back, on a padded table, in a comfortable position. Generally, you can resume your usual activities immediately. documented in this encounter [facility] 12-06-2023 Note HNO ID: [id number] Author: INEZ CHADWICK MD Service: ? Author Type: Physician Type: Progress Notes Filed: 12/08/2023 10:14 Note Text: RHEUMATOLOGY NEW PATIENT NOTE REFERRING PHYSICIAN: Self CHIEF COMPLAINT: Patient presents with: Joint Pain New Patient HPI: Jie Lr is a 73 year old female who presents with joint pain. Ache all over. Challenging year upper, back, shoulder blades, low back, legs, hips. Flare ups stress. She takes aspirin for pain. She takes on Cymbalta. Pain has been worse this year. She was started on Plaquenil by [facility] for early RA. May have helped. Eye exams have been okay. She has seen different rheumatologists. She was also diagnosed with fibromyalgia. Trigger thumb injection. Hip pain - PRP injections. IT band syndrome. Bunions surgery Total Hysterectomy 2001. No fractures. Reports falls. Due for DEXA. Last BMD 2019 osteopenia Cataract Thyroid disease Allergic to sulfa Family history of autoimmune disease: cousin with RA Smoking status: Tobacco Use: Never Rheumatology REVIEW OF SYSTEMS: Constitutional: Recent Weight Change: YES gaining Fatigue: YES episodic Fever: No Night sweats: No Heent: Alopecia: No H/o Inflammatory eye disease (iritis/scleritis): No Hearing loss: No Frequent sinusitis: No Oral ulcers: No Sicca: No Parotid swelling: No Hoarseness: No Dysphagia: No Heme/lymph: Lymphadenopathy: No Hematological abnormalities (anemia, thrombocytopenia, leukopenia): No Abnormal bleeding: No Skin: Malar or discoid lesions: No Photosensitivity: No Other rashes: No Raynaud's phenomenon: YES white Hives: No Tightness: No Nodules/bumps: No Easy Bruising: No Nail changes: No H/o psoriasis: No Gastroenterology: Nausea: No Vomiting: No Change in bowel movements: No Heartburn: No Respiratory: Dry cough/SOB: No Cardiovascular: Pain in chest: No Musculoskeletal: Per HPI Genitourinary: Vaginal dryness: No Rash/ulcers: No Neurological: Headaches: YES Sensitivity or pain of hands and/or feet: No Psychiatry: Anxiety: No Depression: No Poor sleep: YES KATERINA on CPAP H/o loss: No H/o thrombosis: No Increased susceptibility to infection: No PAST MEDICAL HISTORY No date: Other and unspecified hyperlipidemia No date: Rosacea No date: Temporomandibular joint disorders, unspecified PAST SURGICAL HISTORY No date: VAGINAL HYSTERECTOMY Comment: BSO Current Outpatient Medications Medication Sig galcanezumab-gnlm (EMGALITY PEN SUBCUTANEOUS) Inject subcutaneously. ubidecarenone (COENZYME Q10) 100 mg tab Take by mouth. calcium carbonate/vitamin D3 (CALTRATE 600 PLUS D ORAL) Take by mouth. mv-mn/folic ac/calcium/vit K1 (WOMEN'S 50 PLUS MULTIVITAMIN ORAL) Take by mouth. duloxetine HCl (CYMBALTA ORAL) Take 30 mg by mouth. rosuvastatin (CRESTOR) 5 mg tablet Take 5 mg by mouth. Every three days omeprazole (PRILOSEC) 20 mg capsule Take 20 mg by mouth once daily. Aspirin-Caffeine 400-32 mg tab Take by mouth as needed. issqjgkypm-xiocvcr-lmepsase-codei ne (FIORINAL WITH CODEINE) capsule Take 1 capsule by mouth every 4 hours as needed. rizatriptan (MAXALT PLODDING OPERATOR) 5 mg disintegrating tablet Take 5 mg by mouth as needed. May repeat in 2 hours if needed DINORAH 60 MG CAP 60 mg. hydroxychloroquine (PLAQUENIL) 200 mg tablet Take 200 mg by mouth once daily. Cholecalciferol, Vitamin D3, 2,000 unit cap Take by mouth once daily. SYNTHROID 125MCG TABLET Take one(1) tablet daily. naproxen sodium(ALEVE 220 MG TAB) Take one(1) tablet twice daily. No current facility-administered medications for this visit. ALLERGIES Allergen Reactions Dust Mites Rash FAMILY HISTORY Problem Relation Age of Onset Headache Mother Headache Father Cancer Father Brain tumor Social History Tobacco Use Smoking status: Never Occupation: Employer And Job Title: None on file Years Of Education Completed: Not specified Marital Status: History Review: I have reviewed and modified as needed, the following during this visit: Allergies, Past Medical History, Past Surgical History, Past Family History, Past Social History. BP 139/81 Pulse 78 Temp (!) 35.2 ?C (95.3 ?F) (Temporal) Ht 167.6 cm (5' 6 ) Wt 68 kg (150 lb) SpO2 99% BMI 24.21 kg/m? Physical Exam GENERAL: Well appearing, alert, comfortable, in no acute distress, well-hydrated, well nourished. HEENT: Negative for external ears normal. Canals are clear. Both TMs visualized and are normal. Eye Exam normal. External nose normal, no nasal ulcer or throat ulcer. NECK: NECK Supple, no adenopathy; thyroid symmetric, normal size, no bruits CARDIAC: regular rate and rhythm, No murmur asculated., and Equal peripheral pulses RESPIRATORY: Lungs clear to auscultation. No wheezing, rhonchi, rales VASCULAR: RRR without murmur, gallop, or rubs. No ectopy. ABDOMEN: Soft, non tender. BS a (more content not included)... [facility] 12-06-2023 History of Present illness Narrative RHEUMATOLOGY NEW PATIENT NOTE REFERRING PHYSICIAN: Self CHIEF COMPLAINT: Patient presents with: Joint Pain New Patient HPI: iJe Lr is a 73 year old female who presents with joint pain. Ache all over. Challenging year upper, back, shoulder blades, low back, legs, hips. Flare ups stress. She takes aspirin for pain. She takes on Cymbalta. Pain has been worse this year. She was started on Plaquenil by [facility] for early RA. May have helped. Eye exams have been okay. She has seen different rheumatologists. She was also diagnosed with fibromyalgia. Trigger thumb injection. Hip pain - PRP injections. IT band syndrome. Bunions surgery Total Hysterectomy 2001. No fractures. Reports falls. Due for DEXA. Last BMD 2019 osteopenia Cataract Thyroid disease Allergic to sulfa Family history of autoimmune disease: cousin with RA Smoking status: Tobacco Use: Never Rheumatology REVIEW OF SYSTEMS: Constitutional: Recent Weight Change: YES gaining Fatigue: YES episodic Fever: No Night sweats: No Heent: Alopecia: No H/o Inflammatory eye disease (iritis/scleritis): No Hearing loss: No Frequent sinusitis: No Oral ulcers: No Sicca: No Parotid swelling: No Hoarseness: No Dysphagia: No Heme/lymph: Lymphadenopathy: No Hematological abnormalities (anemia, thrombocytopenia, leukopenia): No Abnormal bleeding: No Skin: Malar or discoid lesions: No Photosensitivity: No Other rashes: No Raynaud's phenomenon: YES white Hives: No Tightness: No Nodules/bumps: No Easy Bruising: No Nail changes: No H/o psoriasis: No Gastroenterology: Nausea: No Vomiting: No Change in bowel movements: No Heartburn: No Respiratory: Dry cough/SOB: No Cardiovascular: Pain in chest: No Musculoskeletal: Per HPI Genitourinary: Vaginal dryness: No Rash/ulcers: No Neurological: Headaches: YES Sensitivity or pain of hands and/or feet: No Psychiatry: Anxiety: No Depression: No Poor sleep: YES KATERINA on CPAP H/o loss: No H/o thrombosis: No Increased susceptibility to infection: No PAST MEDICAL HISTORY No date: Other and unspecified hyperlipidemia No date: Rosacea No date: Temporomandibular joint disorders, unspecified PAST SURGICAL HISTORY No date: VAGINAL HYSTERECTOMY Comment: BSO Current Outpatient Medications Medication Sig galcanezumab-gnlm (EMGALITY PEN SUBCUTANEOUS) Inject subcutaneously. ubidecarenone (COENZYME Q10) 100 mg tab Take by mouth. calcium carbonate/vitamin D3 (CALTRATE 600 PLUS D ORAL) Take by mouth. mv-mn/folic ac/calcium/vit K1 (WOMEN'S 50 PLUS MULTIVITAMIN ORAL) Take by mouth. duloxetine HCl (CYMBALTA ORAL) Take 30 mg by mouth. rosuvastatin (CRESTOR) 5 mg tablet Take 5 mg by mouth. Every three days omeprazole (PRILOSEC) 20 mg capsule Take 20 mg by mouth once daily. Aspirin-Caffeine 400-32 mg tab Take by mouth as needed. eujjkxqywu-fafybvi-xqpwyhwt-codei ne (FIORINAL WITH CODEINE) capsule Take 1 capsule by mouth every 4 hours as needed. rizatriptan (MAXALT PLODDING OPERATOR) 5 mg disintegrating tablet Take 5 mg by mouth as needed. May repeat in 2 hours if needed DINORAH 60 MG CAP 60 mg. hydroxychloroquine (PLAQUENIL) 200 mg tablet Take 200 mg by mouth once daily. Cholecalciferol, Vitamin D3, 2,000 unit cap Take by mouth once daily. SYNTHROID 125MCG TABLET Take one(1) tablet daily. naproxen sodium(ALEVE 220 MG TAB) Take one(1) tablet twice daily. No current facility-administered medications for this visit. ALLERGIES Allergen Reactions Dust Mites Rash FAMILY HISTORY Problem Relation Age of Onset Headache Mother Headache Father Cancer Father Brain tumor Social History Tobacco Use Smoking status: Never Occupation: Employer And Job Title: None on file Years Of Education Completed: Not specified Marital Status: History Review: I have reviewed and modified as needed, the following during this visit: Allergies, Past Medical History, Past Surgical History, Past Family History, Past Social History. BP 139/81 Pulse 78 Temp (!) 35.2 C (95.3 F) (Temporal) Ht 167.6 cm (5' 6 ) Wt 68 kg (150 lb) SpO2 99% BMI 24.21 kg/m Physical Exam GENERAL: Well appearing, alert, comfortable, in no acute distress, well-hydrated, well nourished. HEENT: Negative for external ears normal. Canals are clear. Both TMs visualized and are normal. Eye Exam normal. External nose normal, no nasal ulcer or throat ulcer. NECK: NECK Supple, no adenopathy; thyroid symmetric, normal size, no bruits CARDIAC: regular rate and rhythm, No murmur asculated., and Equal peripheral pulses RESPIRATORY: Lungs clear to auscultation. No wheezing, rhonchi, rales VASCULAR: RRR without murmur, gallop, or rubs. No ectopy. ABDOMEN: Soft, non tender. BS active. No masses or organomegaly. LYMPHATIC: Negative for adenopathy in the neck, axillae, groin, supraclavicular and auricular. NEURO: Motor and sensory exam normal MOTOR: Normal; including tone, gait, stressed gait, power and coordination. SKIN: Negative for alopecia, skin rash, malar rash, skin lesion, skin ulcer, pits, thickening, color changes, telangiectasias, nail changes, nail ridging, nail pitting, onycholysis MUSCULOSKELETAL: DIPS: Normal PIPS: Normal MCPs: Normal Wrists: Normal Elbows: Normal Shoulders: Normal C-Spine: Normal Hips: Normal Knees: Normal Ankles: Normal MTPs / Toes: Normal Arches: Normal Summary of old labs/radiology: Review/request of outside labs and imaging: Pertinent labs: Glucose 75 08/30/2008 ALT 15 08/30/2008 WBC 6.38 08/30/2008 Hemoglobin 14.1 08/30/2008 Platelet Count 257 08/30/2008 WSR 7 08/13/2015 CRP 0.1 08/13/2015 Serology: Latest Reference Range & Units 08/13/15 14:24 08/13/15 15:53 03/05/21 14:36 06/25/21 16:06 Albumin 3.37 - 4.23 gm/dL 3.97 Alpha 1 Globulin 0.18 - 0.31 gm/dL 0.23 Alpha 2 Globulin 0.52 - 0.97 gm/dL 0.67 Beta Globulin 0.84 - 1.36 gm/dL 1.10 Gamma Globulin 0.70 - 1.44 gm/dL 1.13 Interpretation (Prot Electro) SEE COMMENT SPE Staff Review Reviewed by Kate Horvath MD ([id number]) M-Protein Location N/A M-Protein Concentration 0.00 gm/dL 0.00 Protein, Urine Random 0 - 20 mg/dL 5 Albumin, Urine (Prot Electro) % 29.7 Alpha 1 Globulin, Urine >0 % 4.5 Alpha 2 Globulin, Urine % 13.5 Beta Globulin, Urine % 33.4 Gamma Globulin, Urine % 18.9 AVA Negative Negative AVA Titer Negative Negative AVA Pattern Not applicable for negative result. DNA Antibody w/Confirmation <30 IU/mL <12 HOSPITAL INSURANCE REPRESENTATIVE Antibody 0.0 - 0.9 AI < 0.2 < 0.2 Anti-SSB <1.0 AI <0.2 Anti-SSA <1.0 AI <0.2 Carmenza 1 Antibody 0.0 - 0.9 AI < 0.2 < 0.2 Chromatin Ab 0.0 - 0.9 AI < 0.2 < 0.2 Rheumatoid Factor <20 IU/mL 15 Lyme Abs, IgG/IgM <0.75 TV 0.24 Interpretation (Lyme Abs/WB) No evidence of antibodies to Borrelia burgdorferi. No evidence of antibodies to Borrelia burgdorferi. CCP Antibody, IgG <20 Units >250 (H) Comment (Urine Prot Electro) Monoclonal Protein analysis (immunofixation) is not indicated. Comment (Serum Prot Electro) Monoclonal Protein analysis (immunofixation) is not indicated. 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 Patient also has chronic joint pain and osteoporosis. She was diagnosed with inflammatory arthritis high titer CCP and has been on hydroxychloroquine. She reports increased stress and overactivity this year which could be causing more pain. Also concern for osteoarthritis. Evaluation below labs and x-rays update bone density. Continue hydroxychloroquine with yearly eye exams. Office Visit on 12/06/23 DXA-AXIAL SKELETON XR HAND GENERAL 3V PA/LAT/OBL LEFT XR HAND GENERAL 3V PA/LAT/OBL RIGHT XR KNEE SURVEY ARTHRITIS 1V AP BILATERAL XR HIP GENERAL 3V PELV/AP/LAT LEFT XR HIP GENERAL 3V PELV/AP/LAT RIGHT XR CERV GENERAL 2V AP/LAT XR SHOULDER GENERAL 3V OR MORE AP/TRUE AP/OTHER LEFT XR SHOULDER GENERAL 3V OR MORE AP/TRUE AP/OTHER RIGHT XR LUMBAR GENERAL 3V AP/LAT/L5-S1 XR SACROILIAC JOINTS 2V AP PELVIS/FERGUESON COMPLETE BLOOD COUNT AND DIFFERENTIAL COMPREHENSIVE METABOLIC PANEL VITAMIN D 25 HYDROXY No orders of the defined types were placed in this encounter. No follow-ups on file. Inez Chadwick MD I spent a total of 40 minutes on the date of the service which included preparing to see the patient, [id number] patient care, completing clinical documentation, obtaining and/or reviewing separately obtained history, performing a medically appropriate examination, counseling and educating the patient/family/caregiver, ordering medications, tests, or procedures, independently interpreting results (not separately reported), and communicating results to the patient/family/caregiver. documented in this encounter [facility] Evaluation note Diagnosis Pain in joint, multiple sites [facility] Pain in joint, multiple sites- Primary Osteoporosis, unspecified osteoporosis type, unspecified pathological fracture presence Inflammatory polyarthropathy (HCC) Unspecified inflammatory polyarthropathy Primary osteoarthritis involving multiple joints Fibromyalgia Mylagia and myositis, unspecified Malaise and fatigue Other malaise and fatigue Vitamin D deficiency Unspecified vitamin D deficiency Pain in joint, multiple sites [facility] Diagnosis Pain in joint, multiple sites- Primary [facility] Diagnostic Procedure Only (Routine) - Closed Specialty Diagnoses / Procedures Referred By Contac t Referred To Contact XR IMAGING Diagnoses Pain in joint, multiple sites Procedures XR SACROILIAC JOINTS 2V AP PELVIS/FERGUESON RADIOLOGIC EXAMINATION SACROILIAC JNTS <3 VIEWS Inez Chadwick MD [address] [place] [address] [place] [address] Referral ID Status Reason Start Date Expiration Date V isits Requested Visits Authorized [id number] Closed Auto-Generate d Referral 12/06/2023 01/04/2025 1 1 * Diagnostic Procedure Only (Routine) - Closed Specialty Diagnoses / Procedures Referred By Contac t Referred To Contact XR IMAGING Diagnoses Pain in joint, multiple sites Procedures XR LUMBAR GENERAL 3V AP/LAT/L5-S1 RADEX SPINE LUMBOSACRAL 2/3 VIEWS Inez Chadwick MD [address] [place] [address] [place] [address] Referral ID Status Reason Start Date Expiration Date V isits Requested Visits Authorized [id number] Closed Auto-Generate d Referral 12/06/2023 01/04/2025 1 1 * Diagnostic Procedure Only (Routine) - Closed Specialty Diagnoses / Procedures Referred By Contac t Referred To Contact XR IMAGING Diagnoses Pain in joint, multiple sites Procedures XR SHOULDER GENERAL 3V OR MORE AP/TRUE AP/OTHER RIGHT RADEX SHOULDER COMPLETE MINIMUM 2 VIEWS Inez Chadwick MD [address] [place] [address] [place] [address] Referral ID Status Reason Start Date Expiration Date V isits Requested Visits Authorized [id number] Closed Auto-Generate d Referral 12/06/2023 01/04/2025 1 1 * Diagnostic Procedure Only (Routine) - Closed Specialty Diagnoses / Procedures Referred By Contac t Referred To Contact XR IMAGING Diagnoses Pain in joint, multiple sites Procedures XR SHOULDER GENERAL 3V OR MORE AP/TRUE AP/OTHER LEFT RADEX SHOULDER COMPLETE MINIMUM 2 VIEWS Inez Chadwick MD [address] [place] [address] [place] [address] Referral ID Status Reason Start Date Expiration Date V isits Requested Visits Authorized [id number] Closed Auto-Generate d Referral 12/06/2023 01/04/2025 1 1 * Diagnostic Procedure Only (Routine) - Closed Specialty Diagnoses / Procedures Referred By Contac t Referred To Contact XR IMAGING Diagnoses Pain in joint, multiple sites Procedures XR CERV GENERAL 2V AP/LAT RADEX SPINE CERVICAL 2 OR 3 VIEWS Inez Chadwick MD [address] [place] [address] [place] [address] Referral ID Status Reason Start Date Expiration Date V isits Requested Visits Authorized [id number] Closed Auto-Generate d Referral 12/06/2023 01/04/2025 1 1 * Diagnostic Procedure Only (Routine) - Closed Specialty Diagnoses / Procedures Referred By Contac t Referred To Contact XR IMAGING Diagnoses Pain in joint, multiple sites Procedures XR HIP GENERAL 3V PELV/AP/LAT RIGHT RADEX HIP UNILATERAL WITH PELVIS 2-3 VIEWS Inez Chadwick MD [address] [place] [address] [place] [address] Referral ID Status Reason Start Date Expiration Date V isits Requested Visits Authorized [id number] Closed Auto-Generate d Referral 12/06/2023 01/04/2025 1 1 * Diagnostic Procedure Only (Routine) - Closed Specialty Diagnoses / Procedures Referred By Contac t Referred To Contact XR IMAGING Diagnoses Pain in joint, multiple sites Procedures XR HIP GENERAL 3V PELV/AP/LAT LEFT RADEX HIP UNILATERAL WITH PELVIS 2-3 VIEWS Inez Chadwick MD [address] [place] [address] [place] [address] Referral ID Status Reason Start Date Expiration Date V isits Requested Visits Authorized [id number] Closed Auto-Generate d Referral 12/06/2023 01/04/2025 1 1 * Diagnostic Procedure Only (Routine) - Closed Specialty Diagnoses / Procedures Referred By Contac t Referred To Contact XR IMAGING Diagnoses Pain in joint, multiple sites Procedures XR KNEE SURVEY ARTHRITIS 1V AP BILATERAL RADIOLOGIC EXAM BOTH KNEES STANDING ANTEROPOST Inez Chadwick MD [address] [place] [address] [place] [address] Referral ID Status Reason Start Date Expiration Date V isits Requested Visits Authorized [id number] Closed Auto-Generate d Referral 12/06/2023 01/04/2025 1 1 * Diagnostic Procedure Only (Routine) - Closed Specialty Diagnoses / Procedures Referred By Contac t Referred To Contact XR IMAGING Diagnoses Pain in joint, multiple sites Procedures XR HAND GENERAL 3V PA/LAT/OBL RIGHT RADEX HAND MINIMUM 3 VIEWS Inez Chadwick MD [address] [place] [address] [place] [address] Referral ID Status Reason Start Date Expiration Date V isits Requested Visits Authorized [id number] Closed Auto-Generate d Referral 12/06/2023 01/04/2025 1 1 * Diagnostic Procedure Only (Routine) - Closed Specialty Diagnoses / Procedures Referred By Contac t Referred To Contact XR IMAGING Diagnoses Pain in joint, multiple sites Procedures XR HAND GENERAL 3V PA/LAT/OBL LEFT RADEX HAND MINIMUM 3 VIEWS Inez Chadwick MD [address] [place] [address] [place] [address] Referral ID Status Reason Start Date Expiration Date V isits Requested Visits Authorized [id number] Closed Auto-Generate d Referral 12/06/2023 01/04/2025 1 1 [facility] for referral (narrative)* Diagnostic Procedure Only (Routine) - Closed Specialty Diagnoses / Procedures Referred By Contac t Referred To Contact XR IMAGING Diagnoses Pain in joint, multiple sites Procedures XR SACROILIAC JOINTS 2V AP PELVIS/FERGUESON RADIOLOGIC EXAMINATION SACROILIAC JNTS <3 VIEWS Inez Chadwick MD [address] [place] [address] [place] [address] Referral ID Status Reason Start Date Expiration Date V isits Requested Visits Authorized [id number] Closed Auto-Generate d Referral 12/06/2023 01/04/2025 1 1 * Diagnostic Procedure Only (Routine) - Closed Specialty Diagnoses / Procedures Referred By Contac t Referred To Contact XR IMAGING Diagnoses Pain in joint, multiple sites Procedures XR LUMBAR GENERAL 3V AP/LAT/L5-S1 RADEX SPINE LUMBOSACRAL 2/3 VIEWS Inez Chadwick MD [address] [place] [address] [place] [address] Referral ID Status Reason Start Date Expiration Date V isits Requested Visits Authorized [id number] Closed Auto-Generate d Referral 12/06/2023 01/04/2025 1 1 * Diagnostic Procedure Only (Routine) - Closed Specialty Diagnoses / Procedures Referred By Contac t Referred To Contact XR IMAGING Diagnoses Pain in joint, multiple sites Procedures XR SHOULDER GENERAL 3V OR MORE AP/TRUE AP/OTHER RIGHT RADEX SHOULDER COMPLETE MINIMUM 2 VIEWS Inez Chadwick MD [address] [place] [address] [place] [address] Referral ID Status Reason Start Date Expiration Date V isits Requested Visits Authorized [id number] Closed Auto-Generate d Referral 12/06/2023 01/04/2025 1 1 * Diagnostic Procedure Only (Routine) - Closed Specialty Diagnoses / Procedures Referred By Contac t Referred To Contact XR IMAGING Diagnoses Pain in joint, multiple sites Procedures XR SHOULDER GENERAL 3V OR MORE AP/TRUE AP/OTHER LEFT RADEX SHOULDER COMPLETE MINIMUM 2 VIEWS Inez Chadwick MD [address] [place] [address] [place] [address] Referral ID Status Reason Start Date Expiration Date V isits Requested Visits Authorized [id number] Closed Auto-Generate d Referral 12/06/2023 01/04/2025 1 1 * Diagnostic Procedure Only (Routine) - Closed Specialty Diagnoses / Procedures Referred By Contac t Referred To Contact XR IMAGING Diagnoses Pain in joint, multiple sites Procedures XR CERV GENERAL 2V AP/LAT RADEX SPINE CERVICAL 2 OR 3 VIEWS Inez Chadwick MD [address] [place] [address] [place] [address] Referral ID Status Reason Start Date Expiration Date V isits Requested Visits Authorized [id number] Closed Auto-Generate d Referral 12/06/2023 01/04/2025 1 1 * Diagnostic Procedure Only (Routine) - Closed Specialty Diagnoses / Procedures Referred By Contac t Referred To Contact XR IMAGING Diagnoses Pain in joint, multiple sites Procedures XR HIP GENERAL 3V PELV/AP/LAT RIGHT RADEX HIP UNILATERAL WITH PELVIS 2-3 VIEWS Inez Chadwick MD [address] [place] [address] [place] [address] Referral ID Status Reason Start Date Expiration Date V isits Requested Visits Authorized [id number] Closed Auto-Generate d Referral 12/06/2023 01/04/2025 1 1 * Diagnostic Procedure Only (Routine) - Closed Specialty Diagnoses / Procedures Referred By Contac t Referred To Contact XR IMAGING Diagnoses Pain in joint, multiple sites Procedures XR HIP GENERAL 3V PELV/AP/LAT LEFT RADEX HIP UNILATERAL WITH PELVIS 2-3 VIEWS Inez Chadwick MD [address] [place] [address] [place] [address] Referral ID Status Reason Start Date Expiration Date V isits Requested Visits Authorized [id number] Closed Auto-Generate d Referral 12/06/2023 01/04/2025 1 1 * Diagnostic Procedure Only (Routine) - Closed Specialty Diagnoses / Procedures Referred By Contac t Referred To Contact XR IMAGING Diagnoses Pain in joint, multiple sites Procedures XR KNEE SURVEY ARTHRITIS 1V AP BILATERAL RADIOLOGIC EXAM BOTH KNEES STANDING ANTEROPOST Inez Chadwick MD [address] [place] [address] [place] [address] Referral ID Status Reason Start Date Expiration Date V isits Requested Visits Authorized [id number] Closed Auto-Generate d Referral 12/06/2023 01/04/2025 1 1 * Diagnostic Procedure Only (Routine) - Closed Specialty Diagnoses / Procedures Referred By Contac t Referred To Contact XR IMAGING Diagnoses Pain in joint, multiple sites Procedures XR HAND GENERAL 3V PA/LAT/OBL RIGHT RADEX HAND MINIMUM 3 VIEWS Inez Chadwick MD [address] [place] [address] [place] [address] Referral ID Status Reason Start Date Expiration Date V isits Requested Visits Authorized [id number] Closed Auto-Generate d Referral 12/06/2023 01/04/2025 1 1 * Diagnostic Procedure Only (Routine) - Closed Specialty Diagnoses / Procedures Referred By Contac t Referred To Contact XR IMAGING Diagnoses Pain in joint, multiple sites Procedures XR HAND GENERAL 3V PA/LAT/OBL LEFT RADEX HAND MINIMUM 3 VIEWS Inez Chadwick MD [address] [facility] [address] [place] [address] [place] [address] Referral ID Status Reason Start Date Expiration Date V isits Requested Visits Authorized [id number] Closed Auto-Generate d Referral 12/06/2023 01/04/2025 1 1 * Diagnostic Procedure Only (Routine) - New Request Specialty Diagnoses / Procedures Referred By Contac t Referred To Contact XR IMAGING Diagnoses Osteoporosis, unspecified osteoporosis type, unspecified pathological fracture presence Procedures DXA-AXIAL SKELETON DXA BONE DENSITY STUDY 1/> SITES AXIAL Inez Myles MD [address] [facility] [address] [place] [address] [place] [address] Referral ID Status Reason Start Date Expiration Date Visits Requested Visits Authorized [id number] New Request Auto-Generat ed Referral 12/06/2023 01/04/2025 1 1 [facility] for visit Narrative* Diagnostic Procedure Only (Routine) - Closed Specialty Diagnoses / Procedures Referred By Contac t Referred To Contact XR IMAGING Diagnoses Pain in joint, multiple sites Procedures XR SACROILIAC JOINTS 2V AP PELVIS/FERGUESON RADIOLOGIC EXAMINATION SACROILIAC JNTS <3 VIEWS Inez Chadwick MD [address] [place] [address] [place] [address] Referral ID Status Reason Start Date Expiration Date V isits Requested Visits Authorized [id number] Closed Auto-Generate d Referral 12/06/2023 01/04/[address] 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 Lining Maker Summary Purpose Family History No Family History Records FoundNo Family History Records FoundNo Family History Records FoundNo Family History Records Found Reason for Referral Specialty Diagnoses / Procedures Referred By Contac t Referred To Contact Pain Management Diagnoses Pain in joint, multiple sites Procedures CONSULT TO PAIN MGT Inez Chadwick MD [address] [place] [address] Referral ID Status Reason Start Date Expiration Date Visits Requested Visits Authorized [id number] Ref Not Required PCP Requested Referral 12/29/2023 03/28/2024 3 3 Additional Source Comments INFORMATION SOURCE (unrecogn ized section and content) DATE CREATED AUTHOR 02/17/2019 [facility] DATE CREATED AUTHOR AUTHOR'S ORGANIZ ATION 07/01/2021 [facility] [place] DATE CREATED AUTHOR AUTHOR'S ORGANIZ ATION 12/05/[address] [facility] EPIC DATE CREATED AUTHOR AUTHOR'S ORGANIZ ATION 01/17/2024 [facility] Source Comments (unrecognize d section and content) In the event this informatio n is protected by the Federal Confidentiality of Alcohol and Drug Abuse Patient Records regulations: The Federal rules restrict any use of the information to criminally investigate or prosecute any alcohol or drug abuse patient.[facility] the event this information is protected by the Federal Confidentiality of Alcohol and Drug Abuse Patient Records regulations: The Federal rules restrict any use of the information to criminally investigate or prosecute any alcohol or drug abuse patient.[facility] the event this information is protected by the Federal Confidentiality of Alcohol and Drug Abuse Patient Records regulations: The Federal rules restrict any use of the information to criminally investigate or prosecute any alcohol or drug abuse patient.[facility] the event this information is protected by the Federal Confidentiality of Alcohol and Drug Abuse Patient Records regulations: The Federal rules restrict any use of the information to criminally investigate or prosecute any alcohol or drug abuse patient.[facility] the event this information is protected by the Federal Confidentiality of Alcohol and Drug Abuse Patient Records regulations: The Federal rules restrict any use of the information to criminally investigate or prosecute any alcohol or drug abuse patient.[facility] the event this information is protected by the Federal Confidentiality of Alcohol and Drug Abuse Patient Records regulations: The Federal rules restrict any use of the information to criminally investigate or prosecute any alcohol or drug abuse patient.[facility] Care Teams (unrecognized sec tion and content) Mathematics Education Professor Relationship Specialty Start Date End Date Adan Vince Bliss PCP - General 08/30/08 Mathematics Education Professor Relationship Specialty Start Date End Date Horacio Ivey MD [address] [place] [address] [address] [place] [address] PCP - General Family Medicine 12/06/23 Mathematics Education Professor Relationship Specialty Start Date End Date Horacio Ivey MD [address] [place] [address] [address] [place] [address] PCP - General Family Medicine 12/06/23 Mathematics Education Professor Relationship Specialty Start Date End Date Horacio Ivey MD [address] [facility] [address] [place] [address] PCP - General Family Medicine 12/06/23 Mathematics Education Professor Relationship Specialty Start Date End Date Horacio Ivey MD [address] [place] [address] [address] [place] [address] PCP - General Family Medicine 12/06/23 Mathematics Education Professor Relationship Specialty Start Date End Date Horacio Ivey MD [address] [facility] [address] [place] [address] PCP - General Family Medicine 12/06/23 Reason for Visit (unrecogniz ed section and content) Reason Comments Joint Pain New Patient Reason Comments Joint Pain Reason Comments Refill Request New Prescription for Plaquenil FOR RECORDS PERTAINING TO PATIENTS WHO ARE [...] BE BASED ON THE PRIMARY CLINICAL RECORDS. [facility]. provides no warranty or guarantee of the accuracy or completeness of information in this document.
[2024-01-19 18:48] LABS: Free T3 2.2 pg/mL (2.18-3.98); T4 Free Direct 1.08 ng/dL (0.76-1.46); Thyroid Stim Hormone (TSH) 0.569 uIU/mL (0.358-3.740)
== END | disposition home or self-care (01) ==
LOC: MFPLAB 13:56
PROVIDERS: PCP Family Medicine; Visit Provider Family Medicine
DX: E03.9 Hypothyroidism, unspecified (principal)
CPT/HCPCS: 36415; 84439; 84443; 84481

== ENCOUNTER → 2024-03-16 | Outpatient (CLI) | payer MEDICARE, SELFPAY ==
--- NOTE | 2024-03-16 12:53 | BD_ITS ---
STUDY: DUAL ENERGY X-RAY ABSORPTIOMETRY / DXA REASON FOR EXAM: Female, 73 years old. [id number] TECHNIQUE: Bone Mineral Density (BMD) measurements of lumbar spine and bilateral hips were obtained. COMPARISON: Comparison is made with prior study dated August 03, 2019. FINDINGS: Lumbar Spine (L1-L4): g/cm2 (0.940) / T-score (-1.0) / Z-score (1.2) Findings are suggestive of osteopenia with a low fracture risk. Left Femur Total: g/cm2 (0.772) / T-score (-1.4) / Z-score (0.2) Left Femoral Neck: g/cm2 (0.680) / T-score (-1.5) / Z-score (0.3) Right Femur Total: g/cm2 (0.813) / T-score (-1.1) / Z-score (0.5) Right Femoral Neck: g/cm2 (0.635) / T-score (-1.9) / Z-score (-0.1) The T-Scores on the most recent prior examination were: Lumbar Spine (L1-L4): There has been worsening of bone density since the previous examination. Left Femur Total: which represents a worsening of 2.7%. Right Femur Total: which represents a worsening of 1%. BD/Dexa Bone Density Study IMPRESSION: The patient is considered osteopenic as outlined below according to World Deric Organization (WHO) criteria with a moderate fracture risk. There has been worsening of bone density since the previous examination. Reference Information: The T-score is the number of standard deviations above or below the standard which is normal for young adults at their peak bone mineral density. The World Health Organization (WHO) interprets the T-scores as follows: Above -1 Normal bone density Between -1 and -2.5 Osteopenia Equal to / or below -2.5 Osteoporosis As a practical clinical guideline, osteopenia may be graded as follows: Mild -1 through -1.5 Moderate -1.6 through -2.0 Severe -2.1 through -2.4 The Z-score is the number of standard deviations above or below age-matched controls. A Z-score of less than -1.5 would be considered abnormal. References: 1. NIH Osteoporosis and Related Bone Diseases www osteo.org 2. International Society for Clinical Densitometry www iscd.org 3. National Osteoporosis Foundation www nof.org Electronically Signed: Mark Bourgeois MD at 15:17 EST ,
== END | disposition home or self-care (01) ==
PROVIDERS: PCP Family Medicine; Visit Provider Family Medicine
DX: Z13.820 Encounter for screening for osteoporosis (principal); M19.90 Unspecified osteoarthritis, unspecified site; Z78.0 Asymptomatic menopausal state
CPT/HCPCS: 77080

== ENCOUNTER → 2024-07-10 | Outpatient (CLI) | payer MEDICARE, SELFPAY ==
--- NOTE | 2024-07-10 13:10 | BI_ITS ---
EXAM: SCRN MAMM (CAD)W/JOY BILAT DATE: 07/10/2024 CLINICAL HISTORY: F, Age 73 y/o , SCREENING FOR BREAST CANCER BREAST CANCER RISK ASSESSMENT: Has not been calculated. TECHNIQUE: Bilateral screening digital breast tomosynthesis with 2D and 3D images. Computer aided detection. COMPARISON: Prior exam(s) dated 07/08/2023 and 04/03/2022. FINDINGS: TISSUE DENSITY: The breast tissue is composed of scattered area of fibroglandular density. Bilateral Breast Mammographic Findings: There are no suspicious masses, suspicious microcalcifications, architectural distortion or secondary sign of malignancy identified in either breast. Benign vascular calcifications, secretory type calcifications and round microcalcifications are seen in both breasts. Well-circumscribed stable isodense masses are seen in both breasts. BI/SCRN MAMM (CAD)W/JOY BILAT IMPRESSION: Right Breast: BIRADS 2 BENIGN FINDING. Left Breast: BIRADS 2 BENIGN FINDING. OVERALL FINAL ASSESSMENT: BIRADS 2 BENIGN FINDING RECOMMENDATION: Routine annual follow-up in 1 Year A letter with findings and recommendations will be mailed to the patient. Reading Location: [id number]
== END | disposition home or self-care (01) ==
LOC: OPBI 13:09
PROVIDERS: PCP Family Medicine; Referring Provider Nurse Practitioner Family; Visit Provider Nurse Practitioner Family
DX: Z12.31 Encounter for screening mammogram for malignant neoplasm of breast (principal)
CPT/HCPCS: 77063; 77067

== ENCOUNTER → 2024-12-22 | Outpatient (CLI) | payer MEDICARE, SELFPAY ==
[2024-12-22 13:13] LABS: AST(SGOT) 24 U/L (<=31); Alanine Aminotransfer ALT/SGPT 25 U/L (<=34); Albumin, Serum 2.7 g/dL (3.4-4.8); Alkaline Phosphatase 83 U/L (35-104); Anion Gap 20 (5-15); BUN 14 mg/dL (4-19); BUN/Creat Ratio 15.3 RATIO (10-20); Calcium,Total 7.6 mg/dL (7.6-11.0); Carbon Dioxide 16.6 mmol/L (21.0-32.0); Chloride 104 mmol/L (98-108); Cholesterol 107 mg/dL (<=200); Free T3 2.2 pg/mL (2.18-3.98); Globulin 1.7 g/dL (2.2-4.2); Glucose 60 mg/dL (70-99); Low Density Lipoprotein Calc. 28 mg/dL; Potassium 4.0 mmol/L (3.3-5.1); Triglycerides 163 mg/dL; Very Low Density Lipoprotein 33 mg/dL (5-40); cholesterol:hdl ratio screen 2.30
== END | disposition home or self-care (01) ==
LOC: MFPLAB 09:41
PROVIDERS: PCP Family Medicine; Referring Provider Family Medicine; Visit Provider Family Medicine
DX: E03.9 Hypothyroidism, unspecified (principal); E78.5 Hyperlipidemia, unspecified
CPT/HCPCS: 36415; 80053; 80061; 84439; 84443; 84481